=== PATIENT | male | born 1940 | race Caucasian/White ===

== ENCOUNTER 2017-08-15 13:11 | Emergency (ER) | payer MEDICARE, SELFPAY | END 2017-08-15 14:58 | disposition home or self-care (01) | PROVIDERS: Emergency Provider Nurse Practitioner; Visit Provider Nurse Practitioner | DX: J32.0 Chronic maxillary sinusitis (principal); I10 Essential (primary) hypertension; E78.5 Hyperlipidemia, unspecified; I48.0 Paroxysmal atrial fibrillation | CPT/HCPCS: G0463; 96372; 99201 ==

== ENCOUNTER → 2018-05-19 12:46 | Outpatient (CLI) | payer MEDICARE, SELFPAY ==
--- NOTE | 2018-05-19 12:53 | XR_ITS ---
XR hip LT 2-3V w/pelvis HISTORY: ITS.REASON: LT HIP PAIN ORDERING PHYSICIAN: Navin Knott MD PATIENT AGE: 77 years COMPARISON: None FINDINGS: There are moderate to severe osteoarthritic changes of the left hip with loss of joint space, osteosclerosis, and mild osteophyte formation. No fracture or dislocation. No lytic or blastic change. Incidental note also made of moderate osteoarthritis of the right hip. IMPRESSION: Moderate to severe osteoarthritis of the left hip
== END ==
PROVIDERS: PCP Family Medicine; Visit Provider Family Medicine
DX: M25.552 Pain in left hip (principal)
CPT/HCPCS: 73502

== ENCOUNTER 2018-06-14 09:56 | Inpatient (IN) ==
--- NOTE | 2018-06-14 12:03 | Pharmacy Consult Notes ---
[facility] Pharmacy VTE Monitoring - Patient Demographics Admission date: 06/14/18 Report Date: 06/14/18 Time: 12:03 Allergies/Adverse Reactions: Patient Allergies No Known Allergies Allergy (Unverified 08/04/17 14:50) - Prophylaxis VTE Prophylaxis Ordered?: Yes Types of VTE Prophylaxis: TEDS Knee High Location of Applied Device: Bilateral Lower Extremeties - VTE Diagnosis Confirmed Treatment or plan recommended: Continue Current Treatment
[2018-06-14 12:42] LABS: Anion Gap 14.6 mEq/L (5-15); Calcium 8.7 mg/dL (8.5-10.1); Potassium 3.6 mmoL/L (3.5-5.1)
[2018-06-14 13:13] LABS: Basophils % 0.2 % (0.1-2.0); Hematocrit 45.4 % (42.0-52.0); Hemoglobin 15.6 g/dL (14.1-18.0); Lymphocytes # 2.4 K/mm3 (0.7-4.5); Lymphocytes % 13.8 K/mm3 (10-50); Mean Corpuscular HGB Conc 34.3 g/dL (31.8-35.4); Mean Corpuscular Hemoglobin 32.4 pg (27.0-31.2); Mean Corpuscular Volume 94.4 fl (80-94); Mean Platelet Volume 9.1 fl (7.4-10.4); Monocytes % 5.6 % (1.7-9.3); Neutrophils # 13.7 K/mm3 (1.8-7.8); Neutrophils % 80.4 % (37.0-80.0); Platelet Count 271 K/mm3 (142-424); Red Cell Distribution Width 13.2 % (11.5-17.5)
[2018-06-14 14:29] LABS: Lymphocytes % 11 % (10-50); Monocytes % 6 % (2-9); Neutrophils % 81 % (42-76); Total Cells Counted 100
--- NOTE | 2018-06-14 16:53 | Progress Note ---
Internal Medicine - PN: Subj *Date: 06/14/18 *Time: 16:51 Interval history: Patient admitted earlier in the day with diagnosis of pneumonia. X-ray has confirmed right lower lobe pneumonia with small effusion. White blood cell count was elevated at 17,000. Patient had oxygen requirement in office with O2 sat of 82% on room air. With supplemental oxygen O2 sats are now in the 90s. Patient admits that his appetite has already improved Exam Vital signs and Labs for Last 24 Hours: Temp Pulse Resp BP Pulse Ox 97.9 F 76 20 120/60 87 L 06/14/18 12:20 06/14/18 12:20 06/14/18 12:20 06/14/18 12:20 06/14/18 12:20 Laboratory Results - last 24 hr 06/14/18 12:10: WBC 17.0 H, RBC 4.80, Hgb 15.6, Hct 45.4, MCV 94.4 H, MCH 32.4 H , MCHC 34.3, RDW 13.2, Plt Count 271, MPV 9.1, Neut % (Auto) 80.4 H, Lymph % (Auto) 13.8, [place] % (Auto) 5.6, Eos % (Auto) 0.0 L, Baso % (Auto) 0.2, Neut # (Auto) 13.7 H, Lymph # (Auto) 2.4, [place] # (Auto) 1.0, Eos # (Auto) 0.0, Baso # (Auto) 0.0, Total Counted 100, Neutrophils % (Manual) 81 H, Band Neutrophils % 2.0, Lymphocytes % (Manual) 11, Monocytes % (Manual) 6, Platelet Estimate Normal 06/14/18 12:10: Sodium 131 L, Potassium 3.6, Chloride 94 L, Carbon Dioxide 26, Anion Gap 14.6, BUN 16, Creatinine 1.40 H, Estimated Creat Clear 45, Estimated GFR 49 L, Est GFR ( Amer) 59, Glucose 109 H, Calcium 8.7 I & O for Last 24 hours: Intake & Output 06/12/18 06/13/18 06/14/18 06/15/18 11:59 11:59 11:59 11:59 Weight 163 lb 7 oz Narrative: Patient appears comfortable and in no distress. Lungs have basilar rales and rhonchi on the right. Heart has a regular rate and rhythm. Abdomen is soft and nontender Assessment and Plan (1) Right lower lobe pneumonia Current visit: Yes Status: Acute Category: Medical Code(s): J18.1 - Lobar pneumonia, unspecified organism (2) Chronic CHF (congestive heart failure) Current visit: Yes Status: Chronic Qualifiers: Heart failure type: combined systolic and diastolic Qualified Code(s): I50.42 - Chronic combined systolic (congestive) and diastolic (congestive) heart failure Category: Medical Code(s): I50.9 - Heart failure, unspecified - Assessment and plan all Dx Assessment and Plan for all problems:: 1. IV Rocephin and doxycycline to avoid drug interaction with amiodarone 2. Encourage ambulation 3. Chest PT
[2018-06-15 06:09] LABS: Basophils % 0.2 % (0.1-2.0); Eosinophils # 0.1 K/mm3 (0.0-0.4); Eosinophils % 0.5 % (0.1-12.0); Hematocrit 43.2 % (42.0-52.0); Hemoglobin 14.4 g/dL (14.1-18.0); Lymphocytes # 2.6 K/mm3 (0.7-4.5); Lymphocytes % 14.1 K/mm3 (10-50); Mean Corpuscular HGB Conc 33.2 g/dL (31.8-35.4); Mean Corpuscular Hemoglobin 31.1 pg (27.0-31.2); Mean Corpuscular Volume 93.5 fl (80-94); Mean Platelet Volume 8.4 fl (7.4-10.4); Monocytes # 1.4 K/mm3 (0.1-1.0); Monocytes % 7.5 % (1.7-9.3); Neutrophils # 14.3 K/mm3 (1.8-7.8); Neutrophils % 77.8 % (37.0-80.0); Platelet Count 290 K/mm3 (142-424); Red Blood Count 4.62 M/mm3 (4.60-6.20); Red Cell Distribution Width 13.2 % (11.5-17.5); White Blood Count 18.4 K/mm3 (4.8-10.8)
--- NOTE | 2018-06-15 07:24 | Progress Note ---
Internal Medicine - PN: Subj *Date: 06/15/18 *Time: 07:22 Interval history: Patient states he feels a little bit better. He did ambulate in his room. He had trouble getting comfortable in bed with pain when he would sit up and cough when he would lay down. Exam Vital signs and Labs for Last 24 Hours: Temp Pulse Resp BP Pulse Ox 98.5 F 85 18 110/51 L 94 L 06/15/18 03:55 06/15/18 03:55 06/15/18 03:55 06/15/18 03:55 06/15/18 03:55 Laboratory Results - last 24 hr 06/14/18 12:10: Mycoplasma pneumon IgM Non-reactive 06/14/18 12:10: WBC 17.0 H, RBC 4.80, Hgb 15.6, Hct 45.4, MCV 94.4 H, MCH 32.4 H , MCHC 34.3, RDW 13.2, Plt Count 271, MPV 9.1, Neut % (Auto) 80.4 H, Lymph % (Auto) 13.8, [place] % (Auto) 5.6, Eos % (Auto) 0.0 L, Baso % (Auto) 0.2, Neut # (Auto) 13.7 H, Lymph # (Auto) 2.4, [place] # (Auto) 1.0, Eos # (Auto) 0.0, Baso # (Auto) 0.0, Total Counted 100, Neutrophils % (Manual) 81 H, Band Neutrophils % 2.0, Lymphocytes % (Manual) 11, Monocytes % (Manual) 6, Platelet Estimate Normal 06/14/18 12:10: Sodium 131 L, Potassium 3.6, Chloride 94 L, Carbon Dioxide 26, Anion Gap 14.6, BUN 16, Creatinine 1.40 H, Estimated Creat Clear 45, Estimated GFR 49 L, Est GFR ( Amer) 59, Glucose 109 H, Calcium 8.7 06/15/18 05:40: WBC 18.4 H, RBC 4.62, Hgb 14.4, Hct 43.2, MCV 93.5, MCH 31.1, MCHC 33.2, RDW 13.2, Plt Count 290, MPV 8.4, Neut % (Auto) 77.8, Lymph % (Auto) 14.1, [place] % (Auto) 7.5, Eos % (Auto) 0.5, Baso % (Auto) 0.2, Neut # (Auto) 14.3 H, Lymph # (Auto) 2.6, [place] # (Auto) 1.4 H, Eos # (Auto) 0.1, Baso # (Auto) 0.0 I & O for Last 24 hours: Intake & Output 06/12/18 06/13/18 06/14/18 06/15/18 11:59 11:59 11:59 11:59 Weight 163 lb 7 oz Narrative: He is in no distress. Lung exam is essentially unchanged with persistent right lower lobe rales and rhonchi. Assessment and Plan (1) Right lower lobe pneumonia Current visit: Yes Status: Acute Category: Medical Code(s): J18.1 - Lobar pneumonia, unspecified organism (2) Chronic CHF (congestive heart failure) Current visit: Yes Status: Chronic Qualifiers: Heart failure type: combined systolic and diastolic Qualified Code(s): I50.42 - Chronic combined systolic (congestive) and diastolic (congestive) heart failure Category: Medical Code(s): I50.9 - Heart failure, unspecified - Assessment and plan all Dx Assessment and Plan for all problems:: I am going to add vancomycin to his regimen. Sputum culture is yet to be collected due to unproductive cough. We will attempt to induce cough for sputum.
[2018-06-15 07:39] LABS: Lymphocytes % 11 % (10-50); Monocytes % 4 % (2-9); Neutrophils % 85 % (42-76); Total Cells Counted 100
--- NOTE | 2018-06-15 08:32 | Pharmacy Consult Notes ---
- Pharmacy Consult Date: 06/15/18 Time: 08:31 Referring provider: DR. VARGAS Reason for Consult:: VANCOMYCIN DOSING Allergies and ADEs:: Allergies Allergy/AdvReac Type Severity Reaction Status Date / Time No Known Allergies Allergy Unverified 08/04/17 14:50 Home Medications:: Home Medications Medication Instructions Recorded Confirmed Type Amiodarone HCl 200 mg PO DAILY 06/14/18 06/14/18 History Apixaban [Eliquis] 5 mg PO BID 06/14/18 06/14/18 History Carvedilol [Carvedilol 12.5mg Tab] 12.5 mg PO BID 06/14/18 06/14/18 History Multivitamin [Men's Multi-Vitamin] 1 each PO HS 06/14/18 06/14/18 History Pravastatin Sodium [Pravachol 40mg 40 mg PO HS 06/14/18 06/14/18 History Tablet] Spironolactone 12.5 mg PO DAILY 06/14/18 06/14/18 History Height: 1.83 m Weight: 74.134 kg Laboratory Results:: Laboratory Results - last 24 hr 06/14/18 12:10: Mycoplasma pneumon IgM Non-reactive 06/14/18 12:10: WBC 17.0 H, RBC 4.80, Hgb 15.6, Hct 45.4, MCV 94.4 H, MCH 32.4 H , MCHC 34.3, RDW 13.2, Plt Count 271, MPV 9.1, Neut % (Auto) 80.4 H, Lymph % (Auto) 13.8, [place] % (Auto) 5.6, Eos % (Auto) 0.0 L, Baso % (Auto) 0.2, Neut # (Auto) 13.7 H, Lymph # (Auto) 2.4, [place] # (Auto) 1.0, Eos # (Auto) 0.0, Baso # (Auto) 0.0, Total Counted 100, Neutrophils % (Manual) 81 H, Band Neutrophils % 2.0, Lymphocytes % (Manual) 11, Monocytes % (Manual) 6, Platelet Estimate Normal 06/14/18 12:10: Sodium 131 L, Potassium 3.6, Chloride 94 L, Carbon Dioxide 26, Anion Gap 14.6, BUN 16, Creatinine 1.40 H, Estimated Creat Clear 45, Estimated GFR 49 L, Est GFR ( Amer) 59, Glucose 109 H, Calcium 8.7 06/15/18 05:40: WBC 18.4 H, RBC 4.62, Hgb 14.4, Hct 43.2, MCV 93.5, MCH 31.1, MCHC 33.2, RDW 13.2, Plt Count 290, MPV 8.4, Neut % (Auto) 77.8, Lymph % (Auto) 14.1, [place] % (Auto) 7.5, Eos % (Auto) 0.5, Baso % (Auto) 0.2, Neut # (Auto) 14.3 H, Lymph # (Auto) 2.6, [place] # (Auto) 1.4 H, Eos # (Auto) 0.1, Baso # (Auto) 0.0, Total Counted 100, Neutrophils % (Manual) 85 H, Lymphocytes % (Manual) 11, Monocytes % (Manual) 4, Platelet Estimate Normal Medical History: Reports:: Atrial Fibrillation, Hyperlipidemia, Hypertension Denies:: Diabetes Mellitus Type 1, Diabetes Mellitus Type 2 Assessment and Plan (1) Right lower lobe pneumonia Current visit: Yes Status: Acute Category: Medical Code(s): J18.1 - Lobar pneumonia, unspecified organism (2) Chronic CHF (congestive heart failure) Current visit: Yes Status: Chronic Qualifiers: Heart failure type: combined systolic and diastolic Qualified Code(s): I50.42 - Chronic combined systolic (congestive) and diastolic (congestive) heart failure Category: Medical Code(s): I50.9 - Heart failure, unspecified - Assessment and plan all Dx Assessment and Plan for all problems:: BASED ON PATIENT'S FACTORS, RECOMMEND STARTING WITH VANCOMYCIN 1500 MG Q24H AT THIS TIME. PHARMACY WILL FOLLOW DAILY AND ADJUST APPROPRIATE. ANTONELLA LINDSEY, PHARMD
[2018-06-16 07:00] LABS: Basophils # 0.1 K/mm3 (0-0.2); Basophils % 0.4 % (0.1-2.0); Eosinophils # 0.1 K/mm3 (0.0-0.4); Eosinophils % 0.7 % (0.1-12.0); Hematocrit 40.9 % (42.0-52.0); Hemoglobin 13.7 g/dL (14.1-18.0); Lymphocytes # 2.6 K/mm3 (0.7-4.5); Lymphocytes % 18.8 K/mm3 (10-50); Mean Corpuscular HGB Conc 33.6 g/dL (31.8-35.4); Mean Corpuscular Hemoglobin 31.5 pg (27.0-31.2); Mean Corpuscular Volume 93.8 fl (80-94); Mean Platelet Volume 8.1 fl (7.4-10.4); Monocytes # 1.2 K/mm3 (0.1-1.0); Monocytes % 8.3 % (1.7-9.3); Neutrophils % 71.8 % (37.0-80.0); Platelet Count 339 K/mm3 (142-424); Red Blood Count 4.36 M/mm3 (4.60-6.20); Red Cell Distribution Width 13.4 % (11.5-17.5)
--- NOTE | 2018-06-16 07:26 | Progress Note ---
Internal Medicine - PN: Subj *Date: 06/16/18 *Time: 07:25 Interval history: Patient is without complaints this morning. He was able to ambulate in his room yesterday without dyspnea. O2 sats remained 87% on room air. Exam Vital signs and Labs for Last 24 Hours: Temp Pulse Resp BP Pulse Ox 97.7 F 83 14 114/63 87 L 06/16/18 04:00 06/16/18 04:00 06/16/18 04:00 06/16/18 04:00 06/16/18 04:58 Laboratory Results - last 24 hr 06/15/18 05:40: Total Counted 100, Neutrophils % (Manual) 85 H, Lymphocytes % (Manual) 11, Monocytes % (Manual) 4, Platelet Estimate Normal 06/16/18 06:30: WBC 14.0 H, RBC 4.36 L, Hgb 13.7 L, Hct 40.9 L, MCV 93.8, MCH 31.5 H, MCHC 33.6, RDW 13.4, Plt Count 339, MPV 8.1, Neut % (Auto) 71.8, Lymph % (Auto) 18.8, [place] % (Auto) 8.3, Eos % (Auto) 0.7, Baso % (Auto) 0.4, Neut # (Auto) 10.0 H, Lymph # (Auto) 2.6, [place] # (Auto) 1.2 H, Eos # (Auto) 0.1, Baso # (Auto) 0.1 I & O for Last 24 hours: Intake & Output 06/13/18 06/14/18 06/15/18 06/16/18 11:59 11:59 11:59 11:59 Intake Total 360 / 360 1030 / 1030 Balance 360 / 360 1030 / 1030 Weight 163 lb 7 oz 163 lb 7 oz Microbiology Reports for the Last 24 Hours: Microbiology 06/14/18 12:10 Blood Blood Culture - Preliminary 06/15/18 08:35 Sputum - Expectorated Sputum Gram Stain - Final Narrative: Patient looks comfortable. Lung exam reveals decrease in rales in the right lung base and right mid lung. Heart has a regular rate and rhythm. Abdomen is soft and nontender Assessment and Plan (1) Right lower lobe pneumonia Current visit: Yes Status: Acute Category: Medical Code(s): J18.1 - Lobar pneumonia, unspecified organism (2) Chronic CHF (congestive heart failure) Current visit: Yes Status: Chronic Qualifiers: Heart failure type: combined systolic and diastolic Qualified Code(s): I50.42 - Chronic combined systolic (congestive) and diastolic (congestive) heart failure Category: Medical Code(s): I50.9 - Heart failure, unspecified - Assessment and plan all Dx Assessment and Plan for all problems:: Continue current plan of care. Patient will continue to ambulate and use incentive spirometer frequently. Focus over the next 24 hours will be attempting to wean oxygen
[2018-06-17 06:51] LABS: Basophils # 0.1 K/mm3 (0-0.2); Basophils % 0.6 % (0.1-2.0); Eosinophils # 0.2 K/mm3 (0.0-0.4); Eosinophils % 1.6 % (0.1-12.0); Hematocrit 39.1 % (42.0-52.0); Hemoglobin 13.6 g/dL (14.1-18.0); Lymphocytes % 26.4 K/mm3 (10-50); Mean Corpuscular HGB Conc 34.7 g/dL (31.8-35.4); Mean Corpuscular Hemoglobin 32.2 pg (27.0-31.2); Mean Corpuscular Volume 92.8 fl (80-94); Monocytes # 1.2 K/mm3 (0.1-1.0); Neutrophils # 6.8 K/mm3 (1.8-7.8); Neutrophils % 60.4 % (37.0-80.0); Platelet Count 408 K/mm3 (142-424); Red Blood Count 4.22 M/mm3 (4.60-6.20); Red Cell Distribution Width 13.5 % (11.5-17.5); White Blood Count 11.3 K/mm3 (4.8-10.8)
--- NOTE | 2018-06-17 07:22 | Discharge Summary ---
General - General Admission date:: 06/14/18 Discharge date: 06/17/18 HPI HPI: 77-year-old male seen in the office on the day of admission for follow-up of acute bronchitis. Patient's symptoms had worsened over a 48-hour period with increasing cough with some yellow sputum production and worsening dyspnea. O2 sats in the office were 82% on room air. Lungs had right-sided rales from the mid lung to the base. Patient was admitted for IV antibiotics and evaluation of pneumonia. Hospital Course Hospital Course: Patient was admitted and placed on Rocephin and doxycycline. This regimen was chosen to avoid interactions with his amiodarone. After 24 hours of treatment patient's white blood cell had increased. Patient had not noticed any change in how he felt. Vancomycin was added to cover possibility of MRSA. Over the following 3 days patient improved a little each day. Lung exam improved daily with decrease in rales. On the day of discharge there was still some posterior basilar right sided rales. He remained afebrile throughout hospitalization. Patient had an oxygen requirement but was able to be weaned to room air with O2 sats reaching 91-92% on room air by the day of discharge. On June 17 patient was discharged home. Patient will follow-up in the office on June 21 at 11 AM. Objective Vital signs: Temp Pulse Resp BP Pulse Ox 98.0 F 81 14 102/41 L 91 L 06/17/18 03:59 06/17/18 03:59 06/17/18 03:59 06/17/18 03:59 06/17/18 03:59 Results Labs on day of discharge: Labs from last 24 hours 06/17/18 06:20 WBC 11.3 H RBC 4.22 L Hgb 13.6 L Hct 39.1 L MCV 92.8 MCH 32.2 H MCHC 34.7 RDW 13.5 Plt Count 408 MPV 8.0 Neut % (Auto) 60.4 Lymph % (Auto) 26.4 [place] % (Auto) 11.0 H Eos % (Auto) 1.6 Baso % (Auto) 0.6 Neut # (Auto) 6.8 Lymph # (Auto) 3.0 [place] # (Auto) 1.2 H Eos # (Auto) 0.2 Baso # (Auto) 0.1 Preliminary micro results at discharge 06/14/18 12:10 Blood Culture - Preliminary Blood NO GROWTH AFTER 48 HOURS 06/14/18 12:10 Blood Culture - Preliminary Blood 06/15/18 08:35 Sputum Culture - Preliminary Sputum - Expectorated Sputum DS: Diagnosis - Discharge Diagnosis (1) Right lower lobe pneumonia Status: Acute (2) Chronic CHF (congestive heart failure) Status: Chronic Discharge Plan - Patient Discharge Instructions ACTIVITY: Continue current activity DIET: continue same diet Patient Instructions: Low-Sodium Diet - Follow up Plan Follow up with: Dwayne Eli MD [Primary Care Provider] - Disposition: Home, Self-Long-Term Medications: Home Medications Medication Instructions Recorded Confirmed Type Amiodarone HCl 200 mg PO DAILY 06/14/18 06/14/18 History Apixaban [Eliquis] 5 mg PO BID 06/14/18 06/14/18 History Carvedilol [Carvedilol 12.5mg Tab] 12.5 mg PO BID 06/14/18 06/14/18 History Multivitamin [Men's Multi-Vitamin] 1 each PO HS 06/14/18 06/14/18 History Pravastatin Sodium [Pravachol 40mg 40 mg PO HS 06/14/18 06/14/18 History Tablet] Spironolactone 12.5 mg PO DAILY 06/14/18 06/14/18 History Prescriptions/Medication Reconciliation: New Doxycycline Hyclate [Doxycycline 100mg Capsule] 100 mg PO Q12 #14 cap Continue Amiodarone HCl 200 mg PO DAILY Pravastatin Sodium [Pravachol 40mg Tablet] 40 mg PO HS Carvedilol [Carvedilol 12.5mg Tab] 12.5 mg PO BID Spironolactone 12.5 mg PO DAILY Multivitamin [Men's Multi-Vitamin] 1 each PO HS Apixaban [Eliquis] 5 mg PO BID
--- NOTE | 2018-06-17 07:59 | Progress Note ---
Internal Medicine - PN: Subj *Date: 06/17/18 *Time: 07:58 Exam Vital signs and Labs for Last 24 Hours: Temp Pulse Resp BP Pulse Ox 97.8 F 75 17 110/79 94 L 06/17/18 07:41 06/17/18 07:41 06/17/18 07:41 06/17/18 07:41 06/17/18 07:41 Laboratory Results - last 24 hr 06/17/18 06:20: WBC 11.3 H, RBC 4.22 L, Hgb 13.6 L, Hct 39.1 L, MCV 92.8, MCH 32.2 H, MCHC 34.7, RDW 13.5, Plt Count 408, MPV 8.0, Neut % (Auto) 60.4, Lymph % (Auto) 26.4, [place] % (Auto) 11.0 H, Eos % (Auto) 1.6, Baso % (Auto) 0.6, Neut # (Auto) 6.8, Lymph # (Auto) 3.0, [place] # (Auto) 1.2 H, Eos # (Auto) 0.2, Baso # (Auto) 0.1 I & O for Last 24 hours: Intake & Output 06/14/18 06/15/18 06/16/18 06/17/18 23:59 23:59 23:59 23:59 Intake Total 1390 / 1390 1150 / 1150 990 / 990 Balance 1390 / 1390 1150 / 1150 990 / 990 Weight 74.134 kg 74.134 kg 74.134 kg 75.977 kg Microbiology Reports for the Last 24 Hours: Microbiology 06/14/18 12:10 Blood Blood Culture - Preliminary NO GROWTH AFTER 48 HOURS 06/14/18 12:10 Blood Blood Culture - Preliminary 06/15/18 08:35 Sputum - Expectorated Sputum Gram Stain - Final 06/15/18 08:35 Sputum - Expectorated Sputum Sputum Culture - Preliminary Assessment and Plan (1) Right lower lobe pneumonia Current visit: Yes Status: Acute Category: Medical Code(s): J18.1 - Lobar pneumonia, unspecified organism (2) Chronic CHF (congestive heart failure) Current visit: Yes Status: Chronic Qualifiers: Heart failure type: combined systolic and diastolic Qualified Code(s): I50.42 - Chronic combined systolic (congestive) and diastolic (congestive) heart failure Category: Medical Code(s): I50.9 - Heart failure, unspecified The patient's infection will respond to the chosen ABx?: Yes Is the patient receiving the right drug, dose, and route?: Yes Could a more targeted ABx be ordered?: No (HOME ON DOXYCYCLINE)
== END 2018-06-17 08:22 | disposition home or self-care (01) ==
LOC: 2ND → OBSVTOIN 11:34
PROVIDERS: ADMIT Family Medicine; ATTEND Family Medicine
CPT/HCPCS: 36415; 71020; 71046; 80048; 85007; 85025; 86738; 87040; 87070; 87077; 87186; 87205; 94761; J3370

== ENCOUNTER → 2019-09-04 12:50 | Outpatient (CLI) | payer MEDICARE, SELFPAY ==
[2019-09-04 13:15] LABS: INR 2.16 (0.9-1.1); Prothrombin Time 21.7 seconds (9.4-11.8)
== END ==
PROVIDERS: Visit Provider Orthopaedic Surgery
DX: M16.12 Unilateral primary osteoarthritis, left hip (principal); Z96.642 Presence of left artificial hip joint; Z51.81 Encounter for therapeutic drug level monitoring; Z79.01 Long term (current) use of anticoagulants
CPT/HCPCS: 85610

== ENCOUNTER 2019-10-02 15:17 | Inpatient (IN) ==
[2019-10-02 15:31] LABS: ABG Base Excess -5.7 mmol/L (-2.4-2.3); ABG Oxygen Saturation 71 % (90-100); ABG PCO2 37.2 mmhg (35.0-45.0); ABG PH 7.35 mmol/L (7.35-7.45); ABG TCO2 21.1 mmhg (23-27)
[2019-10-02 15:32] LABS: Allen's Test ACCEPTABLE; Oxygen 21 %
[2019-10-02 15:33] LABS: ABG PO2 41.4 mmhg (80-100)
--- NOTE | 2019-10-02 15:44 | Emergency Department Note ---
ED Disposition Clinical Impression: Pulmonary edema Qualifiers: Chronicity: acute Qualified Code(s): J81.0 - Acute pulmonary edema Respiratory failure with hypoxia Qualifiers: Chronicity: acute Qualified Code(s): J96.01 - Acute respiratory failure with hypoxia Disposition: Admitted As Inpatient Condition on Discharge: Serious - Critical Care Critical Care Time: Yes Attestation: On 10/02/19, the high probability of a clinically significant, sudden or life threatening deterioration of the following system(s) required my full and direct attention, intervention and personal management. The time I documented below is in addition to time spent performing reported procedures but includes the following listed in this critical care notation. Total Critical Care Time: 45 Vital system(s) involved:: Circulatory Failure, Respiratory Failure My critical care processes included: Assessment & monitoring of V/S, Initial and Re-exams, Data Review/Interpretation, Coordinating Care, Medication Orders and management, Documentation Medical Decision Making - Dandy Inquiry Pt receiving controlled substance: No Vital Signs: 10/02/19 15:18 10/02/19 15:28 10/02/19 16:02 Temperature 98.6 F 98.2 F Temperature Source Oral Oral Pulse Rate 86 Pulse Rate [Right Radial] 84 81 Respiratory Rate 26 H 22 Blood Pressure [Right Arm] 156/58 H 106/66 L Blood Pressure Mean [Right Arm] 90 79 Blood Pressure Source [Right Arm] Automatic Cuff Blood Pressure Position [Right Arm] Supine 02 Sat by Pulse Oximetry 74 L 79 L 91 L Oxygen Delivery Method Room Air Room Air BiPAP Oxygen Flow Rate (LPM) 2 - Lab Data Lab Results 10/02/19 15:23: Specimen Source Right radial, O2 % 21, ABG pH 7.35, ABG pCO2 37.2, ABG pO2 41.4 L, ABG HCO3 20.0 L, ABG Total CO2 21.1 L, ABG O2 Saturation 7 1 L*, ABG Base Excess -5.7 L, Nasir Test Acceptable 10/02/19 16:20: WBC 7.1, RBC 4.63, Hgb 14.7, Hct 47.5, MCV 102.5 H, MCH 31.6 H, MCHC 30.9 L, RDW 13.5, Plt Count 250, MPV 9.9, Neut % (Auto) 60.4, Lymph % (Auto) 30.2, [place] % (Auto) 6.7, Eos % (Auto) 1.7, Baso % (Auto) 0.9, Neut # (Auto) 4.3, Lymph # (Auto) 2.2, [place] # (Auto) 0.5, Eos # (Auto) 0.1, Baso # (Aut o) 0.1 10/02/19 16:20: Sodium 137, Potassium 4.2, Chloride 101, Carbon Dioxide 22, Anion Gap 18.2 H, BUN 22 H, Creatinine 1.68 H, Estimated Creat Clear 37, Estimated GFR 39 L, Est GFR ( Amer) 48 L, Glucose 185 H, Calcium 8.8, Total Bilirubin 0.5, AST 44 H, ALT 34, Alkaline Phosphatase 144 H, Troponin I < 0.02, Total Protein 7.9, Albumin 3.3 L, Globulin 4.6 H, Albumin/Globulin Ratio 0.7 L 10/02/19 16:20: Lactate 3.7 H 10/02/19 16:20: B-Natriuretic Peptide 734 H 10/02/19 16:20: PT 33.5 H, INR 3.42 H Result diagrams: 10/02/19 16:20 10/02/19 16:20 Orders (Tests/Meds): ED MEDICATIONS Generic Name Dose Route Start Last Admin Trade Name Freq PRN Reason Stop Dose Admin Nitroglycerin/Dextrose 250 mls @ 1.5 mls/hr 10/02/19 15:45 10/02/19 16:19 Nitroglycerin 50mg/250ml D5w IV 11/01/19 15:44 5 mcg/min .Q24H DAVID 1.5 mls/hr Administration Protocol 5 MCG/MIN Discontinued Medications Generic Name Dose Route Start Last Admin Trade Name Freq PRN Reason Stop Dose Admin Albuterol/Ipratropium 3 ml 10/02/19 15:23 10/02/19 15:28 Duoneb 3ml Neb IH 10/02/19 15:24 3 ml ONCE ONE Administration Furosemide 40 mg 10/02/19 15:39 10/02/19 16:03 Lasix 40mg/4ml Vial IV 10/02/19 15:40 40 mg ONCE ONE Administration ORDERS Category Date Time Status XR chest portable Stat Exams 10/02/19 15:22 Taken Troponin I Q3H Lab 10/02/19 18:00 Received Troponin I Q3H Lab 10/02/19 21:30 Ordered Blood Culture Stat Micro 10/02/19 16:20 Received - ECG Data Tracing #1 EKG interpreted by Marv Gregory MD: Rhythm: sinus Rate: 85 [place]: normal Ectopy: none Conduction: Left bundle branch block No prior EKGs available for comparison. - Physician Consults Physician Consulted: Pau Bonilla Time: 17:56 Reason -: Cardiology Eval/Care Comment/Response: He knows the patient, states that the patient has been in twice recently for atrial fibrillation and congestive heart failure and he has presented like this before. He does not feel that the patient has to be transferred there but would recommend that he follow-up with Dr. Gonzalez within days of discharge. Discussed with patient and . Again, patient would prefer to stay here. Additional Consult: Lizbeth Eli Time: 18:10 Reason -: Admission Comment/Response: Agrees to admit the patient to the hospital. We discussed the patient's clinical information, including history, exam, laboratory and radiology results and ED course. Per hospital procedure, I will write temporary bridge inpatient orders on the patient. Specific orders requested by the admitting physician: Continue current treatment. He will evaluate later this evening to see if he needs another dose of Lasix. Continue BiPAP for now. Continue nitroglycerin. - Reevaluation(s) Time: 17:44 Reevaluation #1: Patient is doing much better. Says that his breathing feels much better and he appears calm and relaxed on BiPAP. Patient's would like Dr. Gonzalez called, but the patient says he wants to stay here to be cared for by his primary care provider. General Adult HPI - General Chief complaint: Shortness of Breath/Dyspnea Stated complaint: shortness of breath Time Seen by Provider: 10/02/19 15:30 Mode of Arrival: Wheelchair Limitations: No Limitations Description of Symptoms (Recalled from ER Triage Doc. by RN): pt presents to ed with c/o shortness of breath. pt states is began 2 hours ago and he denies fever. reports that patient has a hx of chf. left hip replacement on 08/23/19 - History of Present Illness HPI narrative: Sudden onset of shortness of breath 2 hours ago. States he feels like his lungs are full of fluid. He has a history of congestive heart failure. He took his usual dose of Lasix this morning. Denies chest pain. States that he is "in pain" and just because he cannot breathe. Recently had left hip surgery August 23. Left leg is been swollen ever since surgery. He is on warfarin. Denies cough or fever or URI symptoms. No pleuritic chest pain. No hemoptysis. states that he was just released from the hospital at [facility] Thursday night. She says that they thought they were going to have to shock his heart but when they took him down to do it "it was okay". Apparently he was in atrial fibrillation. She would like Dr. Gonzalez called when work-up is complete. - Related Data Home Medications Medication Instructions Recorded Confirmed Amiodarone HCl 200 mg PO DAILY 06/14/18 09/08/19 Pravastatin Sodium [Pravachol 40mg 40 mg PO HS 06/14/18 09/08/19 Tablet] carvediloL [Carvedilol 12.5mg Tab] 12.5 mg PO BID 06/14/18 09/08/19 levothyroxine 50 mcg tablet 50 mcg PO DAILY tab 09/01/19 09/08/19 tamsulosin 0.4 mg capsule 0.4 mg PO DAILY 09/01/19 09/08/19 Warfarin Sodium [Coumadin 1mg 1 mg PO DAILY 09/07/19 09/08/19 tablet] Previous Rx's Medication Instructions Recorded Nitrofurantoin Monohyd/M-Cryst 100 mg PO BID #14 cap 09/07/19 [Macrobid 100 mg Capsule] Allergies Allergy/AdvReac Type Severity Reaction Status Date / Time No Known Allergies Allergy Verified 10/02/19 15:[address] [facility] History - Hepatitis A Screen Drug use history?: No High risk sexual behaviors?: No History of sexually transmitted infection?: No Currently employed?: No Childcare worker?: No Do you have indoor plumbing?: Yes Do you have electricity?: Yes Attestation statement:: This patient has been screened for Hepatitis A risk factors. I have reviewed the patient's past medical history: Yes Medical History: Reports:: Atrial Fibrillation, Hyperlipidemia, Hypertension Denies:: Diabetes Mellitus Type 1, Diabetes Mellitus Type 2 Other Medical History: Reports: Arthritis Laterality Cases: Left: Total Hip Replacement, Bilateral: Tonsillectomy Other Surgeries: Yes: Splenectomy Amputation: No - Social History Smoking Status: Never smoker Alcohol Intake: never Substance Use Type: denies use Occupational Status: retired Household Members: spouse Family Hx:: Coronary Artery Disease, Heart Attack ROS Obtained: Yes All systems reviewed & no additional complaints - Constitutional Constitutional: Denies fever(s) - Cardiovascular Cardiovascular: Denies chest pain, Reports leg edema (Left leg since surgery) - Respiratory Respiratory: No cough, Yes dyspnea - Gastrointestinal Gastrointestingal: Denies: abdominal pain, vomiting Physical Exam - General General appearance: alert, anxious, in distress (Respiratory) - Head Head exam: atraumatic, normocephalic - Eye Eye exam: Present: normal appearance, EOMI - ENT ENT exam: Present: mucous membranes moist - Neck Neck exam: Present: normal inspection, trachea midline - Chest Chest inspection: Present: normal inspection, symmetric chest wall rise - Respiratory Respiratory exam: Present: other (Rales throughout) - Cardiovascular Cardiovascular exam: Present: regular rate, normal rhythm, normal heart sounds - Abdominal Exam Abdominal exam: Present: soft, normal bowel sounds. Absent: distention, tenderness - Extremities Exam Extremities exam: Present: normal capillary refill, other (1-2+ pitting edema left lower leg/ankle) - Neurological Exam Neurological exam: Present: alert, oriented X3 - Psychiatric Psychiatric exam: Present: anxious - Skin Skin exam: Present: warm, dry
[2019-10-02 16:37] LABS: Basophils # 0.1 K/mm3 (0-0.2); Basophils % 0.9 % (0.1-2.0); Eosinophils # 0.1 K/mm3 (0.0-0.4); Eosinophils % 1.7 % (0.1-12.0); Hematocrit 47.5 % (42.0-52.0); Hemoglobin 14.7 g/dL (14.1-18.0); Lymphocytes # 2.2 K/mm3 (0.7-4.5); Lymphocytes % 30.2 % (10-50); Mean Corpuscular HGB Conc 30.9 g/dL (31.8-35.4); Mean Corpuscular Volume 102.5 fl (80-94); Mean Platelet Volume 9.9 fl (7.4-10.4); Monocytes # 0.5 K/mm3 (0.1-1.0); Monocytes % 6.7 % (1.7-9.3); Neutrophils # 4.3 K/mm3 (1.8-7.8); Neutrophils % 60.4 % (37.0-80.0); Platelet Count 250 K/mm3 (142-424); Red Blood Count 4.63 M/mm3 (4.60-6.20); Red Cell Distribution Width 13.5 % (11.5-17.5); White Blood Count 7.1 K/mm3 (4.8-10.8)
[2019-10-02 17:18] LABS: Alanine Aminotransferase 34 U/L (21-72); Albumin Level 3.3 g/dL (3.4-5.0); Albumin/Globulin Ratio 0.7 (1.1-1.8); Alkaline Phosphatase 144 U/L (46-116); Anion Gap 18.2 mEq/L (5-15); Aspartate Amino Transferase 44 U/L (15-37); Bilirubin,Total 0.5 mg/dL (0.2-1.0); Blood Urea Nitrogen 22 mg/dL (7-18); Carbon Dioxide 22 mmol/L (21.0-32.0); Chloride 101 mmol/L (98-107); Globulin 4.6 gm/dl (1.3-3.2); Glucose 185 mg/dL (74-106); Sodium 137 mmol/L (137-145); Total Protein,Serum 7.9 g/dL (6.4-8.2)
[2019-10-02 17:48] LABS: Calcium 8.8 mg/dL (8.5-10.1)
[2019-10-02 17:52] LABS: INR 3.42 (0.9-1.1); Prothrombin Time 33.5 seconds (9.4-11.8)
[2019-10-03 06:19] LABS: Anion Gap 11.8 mEq/L (5-15); Calcium 8.5 mg/dL (8.5-10.1)
--- NOTE | 2019-10-03 07:34 | Pharmacy Consult Notes ---
[facility] Pharmacy VTE Monitoring - Patient Demographics Admission date: 10/02/19 Report Date: 10/03/19 Time: 07:34 Allergies/Adverse Reactions: Patient Allergies No Known Allergies Allergy (Verified 10/02/19 15:22) Height: 1.83 m Weight: 72.235 kg Patient Problems: Current Active Problems Pulmonary edema (Acute) Respiratory failure with hypoxia (Acute) - VTE Risk Labs: VTE Related Lab Results Hgb 14.7 g/dL (14.1-18.0) 10/02/19 16:20 Hct 47.5 % (42.0-52.0) 10/02/19 16:20 Plt Count 250 K/mm3 (142-424) 10/02/19 16:20 PT 33.5 seconds (9.4-11.8) H 10/02/19 16:20 INR 3.42 (0.9-1.1) H 10/02/19 16:20 BUN 19 mg/dL (7-18) H 10/03/19 05:25 Creatinine 1.61 mg/dL (0.70-1.30) H 10/03/19 05:25 Estimated Creat Clear 37 mL/min (50-200) 10/03/19 05:25 VTE Score: 5 VTE Risk Level: Low Risk - Prophylaxis VTE Prophylaxis Ordered?: Yes Types of VTE Prophylaxis: TEDS Knee High Location of Applied Device: Bilateral Lower Extremeties
--- NOTE | 2019-10-03 07:53 | History & Physical Report ---
*Admission Date: 10/02/19 *Chief complaint: Chest tightness *History of present illness: 79-year-old male with history of atrial fibrillation and a recent 6-day hospitalization at [facility] for A. fib and shortness of breath presented to the emergency department after onset of chest tightness yesterday afternoon. Patient reports he was out eating lunch when he felt like a truck had run over his chest. Patient decided to go home and rest. When he began to feel short of breath and his anxiety increased he presented to the emergency department. In the emergency department patient had a negative troponin. EKG shows a left bundle branch block. Patient's clasp machine operator was contacted about possible transfer when patient was found to be in acute congestive heart failure. Patient's clasp machine operator felt like we could manage this problem here and the patient was admitted with IV Lasix and placed on BiPAP. Patient reports recent 6-day stay at [facility] when he went to the ER there because he believed he was in A. fib. Apparently initially he was not in A. fib but later on runs of atrial fibrillation were detected. He does not recall much about the rest of the stay at the hospital. His does not believe he ever had an echocardiogram although this was discussed but she admits she could be wrong. He was in the hospital from September 25 to September 30. [facility] History I have reviewed the patient's past medical history: Yes Medical History: Reports:: Atrial Fibrillation, Congestive Heart Failure, Hyperlipidemia, Hypertension Denies:: Diabetes Mellitus Type 1, Diabetes Mellitus Type 2 *Have you ever received a pneumonia vaccine?: Yes *Have you received a flu vaccine this season?: Yes Other Medical History: Reports: Arthritis Laterality Cases: Left: Total Hip Replacement, Bilateral: Tonsillectomy Other Surgeries: Yes: Splenectomy Amputation: No - *Social History Educational Level: Completed High School Smoking Status: Never smoker Alcohol Intake: never Substance Use Type: denies use *Occupational Status:: retired Household Members: spouse *Travel in the last 8 weeks: None Family Hx:: Coronary Artery Disease, Heart Attack Review of Systems - Review of Systems Review of systems:: pertinent systems reviewed and negative unless documented below - Constitutional Denies body ache(s), Denies chills, Denies fever(s), Denies night sweats - *Cardiovascular Reports chest pain, Reports chest pain at rest, Reports shortness of breath - *Respiratory Reports cough, Reports shortness of breath, Denies change in phlegm color, Denies chest congestion - *Gastrointestinal Denies abdominal pain - *Genitourinary Denies difficulty urinating Meds Home Medications Medication Instructions Recorded Confirmed Type Amiodarone HCl 200 mg PO BID 06/14/18 10/02/19 History Pravastatin Sodium [Pravachol 40mg 40 mg PO HS 06/14/18 10/02/19 History Tablet] carvediloL [Carvedilol 12.5mg Tab] 12.5 mg PO BID 06/14/18 10/02/19 History levothyroxine 50 mcg tablet 50 mcg PO DAILY tab 09/01/19 10/02/19 History tamsulosin 0.4 mg capsule 0.4 mg PO HS 09/01/19 10/02/19 History Warfarin Sodium [Coumadin 1mg 1 mg PO HS 09/07/19 10/02/19 History tablet] Furosemide [Lasix 20mg tab] 20 mg PO DAILY 10/02/19 10/02/19 History Gabapentin [Gabapentin 100mg Cap] 100 mg PO ONCE 10/02/19 10/02/19 History Iron [Iron 18mg Tab] 65 mg PO HS 10/02/19 10/02/19 History Allergies Allergy/AdvReac Type Severity Reaction Status Date / Time No Known Allergies Allergy Verified 10/02/19 15:22 Exam Vital signs and Labs for Last 24 Hours: Temp Pulse Resp BP Pulse Ox 98.0 F 64 20 92/56 L 98 10/03/19 04:00 10/03/19 07:06 10/03/19 07:06 10/03/19 07:06 10/03/19 07:06 Laboratory Results - last 24 hr 10/02/19 15:23: Specimen Source Right radial, O2 % 21, ABG pH 7.35, ABG pCO2 37.2, ABG pO2 41.4 L, ABG HCO3 20.0 L, ABG Total CO2 21.1 L, ABG O2 Saturation 71 L*, ABG Base Excess -5.7 L, Nasir Test Acceptable 10/02/19 16:20: WBC 7.1, RBC 4.63, Hgb 14.7, Hct 47.5, MCV 102.5 H, MCH 31.6 H, MCHC 30.9 L, RDW 13.5, Plt Count 250, MPV 9.9, Neut % (Auto) 60.4, Lymph % (Auto) 30.2, [place] % (Auto) 6.7, Eos % (Auto) 1.7, Baso % (Auto) 0.9, Neut # (Auto) 4.3, Lymph # (Auto) 2.2, [place] # (Auto) 0.5, Eos # (Auto) 0.1, Baso # (Auto) 0.1 10/02/19 16:20: Sodium 137, Potassium 4.2, Chloride 101, Carbon Dioxide 22, Anion Gap 18.2 H, BUN 22 H, Creatinine 1.68 H, Estimated Creat Clear 37, Estimated GFR 39 L, Est GFR ( Amer) 48 L, Glucose 185 H, Calcium 8.8, Total Bilirubin 0.5, AST 44 H, ALT 34, Alkaline Phosphatase 144 H, Troponin I < 0.02, Total Protein 7.9, Albumin 3.3 L, Globulin 4.6 H, Albumin/Globulin Ratio 0.7 L 10/02/19 16:20: Lactate 3.7 H 10/02/19 16:20: B-Natriuretic Peptide 734 H 10/02/19 16:20: PT 33.5 H, INR 3.42 H 10/02/19 18:00: Troponin I 0.14 H 10/02/19 21:36: Troponin I 0.30 H 10/02/19 21:36: Lactate 1.4 10/03/19 05:25: Sodium 140, Potassium 3.8, Chloride 103, Carbon Dioxide 29 D, Anion Gap 11.8, BUN 19 H, Creatinine 1.61 H, Estimated Creat Clear 37, Estimated GFR 41 L, Est GFR ( Amer) 50 L, Glucose 102 D, Calcium 8.5 I & O for Last 24 hours: Intake & Output 09/30/19 10/01/19 10/02/19 10/03/19 11:59 11:59 11:59 11:59 Intake Total 1899 Output Total 0 / 0 Balance 1899 Weight 159 lb 4 oz Narrative: Patient initially appears comfortable when I entered the room as he is wearing BiPAP. BiPAP was removed and he was transitioned to nasal cannula and remained comfortable with no signs of respiratory distress. Scalp exam is without lesions. Eyes reveal reactive pupils. Normal external ears. Oropharynx is dry from use of BiPAP. Neck has no lymphadenopathy or carotid bruits. Lungs have rales in the left and right lung base with left being more prominent. Heart has a regular rate and rhythm. Abdomen is thin and soft. Extremities reveals some doughy edema of the left lower leg and ankle which has been present since patient's left hip replacement in early August. Neurologically there are no deficits Assessment and Plan (1) Acute congestive heart failure Current visit: Yes Status: Acute Category: Medical Code(s): I50.9 - Heart failure, unspecified (2) Respiratory failure with hypoxia Current visit: Yes Status: Acute Qualifiers: Chronicity: acute Qualified Code(s): J96.01 - Acute respiratory failure with hypoxia Category: Medical Code(s): J96.91 - Respiratory failure, unspecified with h ypoxia - Assessment and plan all Dx Assessment and Plan for all problems:: 1. Transition to nasal cannula 2. Continue diuresis with intravenous Lasix 3. Echocardiogram today
[2019-10-03 08:49] LABS: Anion Gap 12.5 mEq/L (5-15); Calcium 8.2 mg/dL (8.5-10.1)
[2019-10-03 08:50] LABS: Basophils # 0.1 K/mm3 (0-0.2); Basophils % 0.5 % (0.1-2.0); Eosinophils # 0.1 K/mm3 (0.0-0.4); Eosinophils % 0.4 % (0.1-12.0); Lymphocytes # 2.6 K/mm3 (0.7-4.5); Monocytes # 0.8 K/mm3 (0.1-1.0); Red Blood Count 3.97 M/mm3 (4.60-6.20)
[2019-10-03 08:59] LABS: Hematocrit 39.1 % (42.0-52.0); Lymphocytes % 22.3 % (10-50); Mean Corpuscular HGB Conc 32.5 g/dL (31.8-35.4); Mean Corpuscular Volume 98.5 fl (80-94); Mean Platelet Volume 9.1 fl (7.4-10.4); Monocytes % 7.2 % (1.7-9.3); Neutrophils % 69.5 % (37.0-80.0); Platelet Count 240 K/mm3 (142-424); Red Cell Distribution Width 13.5 % (11.5-17.5); White Blood Count 11.5 K/mm3 (4.8-10.8)
[2019-10-03 09:07] LABS: Hemoglobin 12.7 g/dL (14.1-18.0)
[2019-10-03 15:15] LABS: INR 3.33 (0.9-1.1); Prothrombin Time 32.7 seconds (9.4-11.8)
--- NOTE | 2019-10-03 18:05 | Electrocardiograph Report ---
APPROVED REPORT Exam: Resting ECG HR:85 bpm ECG Measurements Heart Rate 85 AXES DE 178 P 47 QRSd 180 QRS -39 QT 508 T99 QTc 604 <Conclusion> Normal sinus rhythm Possible Left atrial enlargement Left axis deviation Left bundle branch block Abnormal ECG Electronically signed by : Diego Treviño, 10/03/2019 18:04:49
--- NOTE | 2019-10-03 18:22 | Cardiology Report ---
APPROVED REPORT EXAM: Comprehensive 2D, Doppler, and color-flow Echocardiogram [employer] Equipment Mechanic Supervisor: Rica Rangel RT(R) Ht: 6 ft 0 in Wt: 166lbs BSA: 1.97 BP: 92/56 mmHg Indications: Chest tightness, hx of syncope, recent afib with hospitalization in [place], pleural effusions, HTN, Hyperlipidemia, family hx of HD, CHF, LBBB, recent hip surgery 08/23/19. 2D Dimensions LVOT 1.89 cm (M/F) 1.5-2.5 M-Mode Dimensions RVDd 2.01 cm (0.9-2.6)LVDd 5.28 cm (3.5-5.7) LVDs 4.48 cm (3.5-5.7)IVSd 0.99 cm (0.6-1.1) PWd 0.99 cm (0.6-1.1)EF (Teich) 31.80% FS 15.20% EDV (Teich) 134.20 mL ESV (Teich) 91.50 mL LV Diastology E/A Ratio 1.56 Mitral Valve MV A Velocity 78.00 (40-130 cm/s) Left Ventricle Left atrium is moderately enlarged, left ventricle is mildly dilated, there is severely soft ventricular systolic function, visually estimated ejection fraction approximately 30%, there is abnormal septal motion, grade 2 diastolic dysfunction seen with tissue Doppler evidence of raise left atrial pressure. Right Ventricle Right atrium and right ventricular normal size and contractility. Aortic Valve Aortic valve is thickened and calcified leaflet continue to display good mobility, there is no aortic stenosis, there is mild aortic insufficiency. Mitral Valve Mitral valve leaflets are minimally thickened, there is no mitral stenosis, there is severe mitral regurgitation. Tricuspid Valve Tricuspid valve is grossly normal, there is mild tricuspid regurgitation, calculated right ventricular systolic pressure is 47 mmHg. Pulmonic Valve Pulmonic valve is poorly visualized. Great Vessels Aortic root is normal size. Pericardium No significant pericardial effusion noted. Conclusion 1. Moderately enlarged left atrium, mildly dilated left ventricle, severely this left ventricular systolic function, visually estimated ejection fraction 30%, there is abnormal septal motion, grade 2 diastolic dysfunction seen with tissue Doppler evidence of raise left atrial pressure. 2. Thickened and calcified aortic valve without aortic stenosis, there is mild aortic insufficiency. 3. Severe mitral regurgitation. 4. Mild tricuspid regurgitation noted, calculated right ventricular systolic pressure is 47 mmHg. 5. No significant pericardial effusion noted, there is left-sided pleural effusion seen Electronically signed by : Faraz Mcnair, 10/03/2019 18:21:56
[2019-10-04 06:07] LABS: Basophils # 0.1 K/mm3 (0-0.2); Basophils % 0.5 % (0.1-2.0); Eosinophils # 0.1 K/mm3 (0.0-0.4); Eosinophils % 0.7 % (0.1-12.0); Hematocrit 38.1 % (42.0-52.0); Hemoglobin 12.6 g/dL (14.1-18.0); Lymphocytes # 3.9 K/mm3 (0.7-4.5); Lymphocytes % 33.1 % (10-50); Mean Corpuscular HGB Conc 33.1 g/dL (31.8-35.4); Mean Corpuscular Volume 96.4 fl (80-94); Mean Platelet Volume 9.1 fl (7.4-10.4); Monocytes # 1.3 K/mm3 (0.1-1.0); Neutrophils # 6.4 K/mm3 (1.8-7.8); Neutrophils % 54.7 % (37.0-80.0); Platelet Count 246 K/mm3 (142-424); Red Blood Count 3.95 M/mm3 (4.60-6.20); Red Cell Distribution Width 13.5 % (11.5-17.5); White Blood Count 11.7 K/mm3 (4.8-10.8)
[2019-10-04 06:31] LABS: Calcium 8.5 mg/dL (8.5-10.1)
--- NOTE | 2019-10-04 07:47 | Progress Note ---
Internal Medicine - PN: Subj *Date: 10/04/19 *Time: 07:44 Interval history: Patient has no complaints this morning. He slept well overnight. Nursing staff had to remove patient's [place] catheter due to leaking. Patient remains on supplemental oxygen. Nursing staff also reports patient has bounced in and out of atrial fibrillation overnight Exam Vital signs and Labs for Last 24 Hours: Temp Pulse Resp BP Pulse Ox 98.2 F 76 16 101/53 L 90 L 10/04/19 04:00 10/04/19 04:00 10/04/19 04:00 10/04/19 04:00 10/04/19 04:00 Laboratory Results - last 24 hr 10/03/19 08:37: WBC 11.5 H D, RBC 3.97 L, Hgb 12.7 L D, Hct 39.1 L, MCV 98.5 H, MCH 32.0 H, MCHC 32.5, RDW 13.5, Plt Count 240, MPV 9.1, Neut % (Auto) 69.5, Lymph % (Auto) 22.3, [place] % (Auto) 7.2, Eos % (Auto) 0.4, Baso % (Auto) 0.5, Neut # (Auto) 8.0 H, Lymph # (Auto) 2.6, [place] # (Auto) 0.8, Eos # (Auto) 0.1, Baso # (Auto) 0.1 10/03/19 08:37: PT 32.7 H, INR 3.33 H 10/03/19 08:37: Sodium 141, Potassium 3.5, Chloride 104, Carbon Dioxide 28, Anion Gap 12.5, BUN 20 H, Creatinine 1.72 H, Estimated Creat Clear 34, Estimated GFR 38 L, Est GFR ( Amer) 46 L, Glucose 135 H D, Calcium 8.2 L 10/04/19 05:35: Troponin I 0.09 H 10/04/19 05:35: WBC 11.7 H, RBC 3.95 L, Hgb 12.6 L, Hct 38.1 L, MCV 96.4 H, MCH 31.8 H, MCHC 33.1, RDW 13.5, Plt Count 246, MPV 9.1, Neut % (Auto) 54.7, Lymph % (Auto) 33.1, [place] % (Auto) 11.0 H, Eos % (Auto) 0.7, Baso % (Auto) 0.5, Neut # (Auto) 6.4, Lymph # (Auto) 3.9, [place] # (Auto) 1.3 H, Eos # (Auto) 0.1, Baso # (Auto) 0.1 10/04/19 05:35: Sodium 138, Potassium 3.0 L, Chloride 100, Carbon Dioxide 28, Anion Gap 13.0, BUN 19 H, Creatinine 1.48 H, Estimated Creat Clear 40, Estimated GFR 46 L, Est GFR ( Amer) 55 L, Glucose 85 D, Calcium 8.5 I & O for Last 24 hours: Intake & Output 10/01/19 10/02/19 10/03/19 10/04/19 11:59 11:59 11:59 11:59 Intake Total 2140 / 2140 240 / 240 Output Total 0 / 0 2300 / 2300 Balance 2140 / 2140 -2059 / -2059 Weight 159 lb 4 oz 157 lb 7 oz Narrative: Patient appears comfortable in bed. Nasal cannula is in place. Lungs continue to have bibasilar crackles left more so than right. Heart has a regular rate and rhythm. Assessment and Plan (1) Acute congestive heart failure Current visit: Yes Status: Acute Category: Medical Code(s): I50.9 - Heart failure, unspecified (2) Respiratory failure with hypoxia Current visit: Yes Status: Acute Qualifiers: Chronicity: acute Qualified Code(s): J96.01 - Acute respiratory failure with hypoxia Category: Medical Code(s): J96.91 - Respiratory failure, unspecified with hypoxia (3) Atrial fibrillation Current visit: Yes Status: Acute Category: Medical Code(s): I48.91 - Unspecified atrial fibrillation (4) Systolic and diastolic CHF, acute on chronic Current visit: Yes Status: Acute Category: Medical Code(s): I50.43 - Acute on chronic combined systolic (congestive) and diastolic (congestive) heart failure (5) Severe mitral regurgitation Current visit: Yes Status: Acute Category: Medical Code(s): I34.0 - Nonrheumatic mitral (valve) insufficiency - Assessment and plan all Dx Assessment and Plan for all problems:: 1. Repeat chest x-ray today. Continue Lasix daily. I will reach out to his olive packer to discuss any changes in plan of care
[2019-10-05 07:05] LABS: INR 1.82 (0.9-1.1); Prothrombin Time 18.4 seconds (9.4-11.8)
[2019-10-05 07:13] LABS: Calcium 8.8 mg/dl (8.4-10.2)
[2019-10-05 07:40] LABS: Anion Gap 10.2 mEq/L (5-15)
--- NOTE | 2019-10-05 08:19 | Progress Note ---
Internal Medicine - PN: Subj *Date: 10/05/19 *Time: 08:16 Interval history: Patient slept overnight. He admits he still getting short of breath with movements within the bed and ambulating back and forth to the unit bathroom. He was strong enough to shave last night. Nursing staff reports what appears to be a 15 beat run of ventricular tachycardia for which the patient was asymptomatic. I did speak with patient's typing pool supervisor late last night regarding his condition and discussion has previously been had with the patient about further intervention to better synchronize the right and left ventricle. When I speak with the patient about this this morning he does not really recall that conversation. Exam Vital signs and Labs for Last 24 Hours: Temp Pulse Resp BP Pulse Ox 98.7 F 79 17 106/65 L 92 L 10/05/19 04:00 10/05/19 04:00 10/05/19 04:00 10/05/19 04:00 10/05/19 04:00 Laboratory Results - last 24 hr 10/05/19 05:30: Sodium 133 L, Potassium 3.2 L, Chloride 96 L, Carbon Dioxide 30, Anion Gap 10.2, BUN 18, Creatinine 1.30 H, Estimated Creat Clear 44, Estimated GFR 53 L, Est GFR ( Amer) 64, Glucose 91, Calcium 8.8 10/05/19 05:30: PT 18.4 H, INR 1.82 H I & O for Last 24 hours: Intake & Output 10/02/19 10/03/19 10/04/19 10/05/19 11:59 11:59 11:59 11:59 Intake Total 2140 / 2140 480 / 480 1090 / 1090 Output Total 0 / 0 2300 / 2300 75 / 75 Balance 2140 / 2140 -1820 / -1820 1015 / 1015 Weight 159 lb 4 oz 157 lb 7 oz 155 lb 9 oz Microbiology Reports for the Last 24 Hours: Microbiology 10/02/19 16:20 Blood Blood Culture - Preliminary NO GROWTH AFTER 48 HOURS 10/02/19 16:20 Blood Blood Culture - Preliminary NO GROWTH AFTER 48 HOURS Narrative: Patient is awake and alert. Heart has a regular rate and rhythm. Patient has faint rales in the bases bilaterally. Lower extremities have no edema Assessment and Plan (1) Acute congestive heart failure Current visit: Yes Status: Acute Category: Medical Code(s): I50.9 - Heart failure, unspecified (2) Respiratory failure with hypoxia Current visit: Yes Status: Acute Qualifiers: Chronicity: acute Qualified Code(s): J96.01 - Acute respiratory failure with hypoxia Category: Medical Code(s): J96.91 - Respiratory failure, unspecified with hypoxia (3) Atrial fibrillation Current visit: Yes Status: Acute Category: Medical Code(s): I48.91 - Unspecified atrial fibrillation (4) Systolic and diastolic CHF, acute on chronic Current visit: Yes Status: Acute Category: Medical Code(s): I50.43 - Acute on chronic combined systolic (congestive) and diastolic (congestive) heart failure (5) Severe mitral regurgitation Current visit: Yes Status: Acute Category: Medical Code(s): I34.0 - Nonrheumatic mitral (valve) insufficiency - Assessment and plan all Dx Assessment and Plan for all problems:: In speaking with his typing pool supervisor last night discussion was had about further outpatient or inpatient intervention. Due to patient's V. tach along with some persistence of his mild CHF we will arrange inpatient transfer to [facility] through Dr. Gonzalez.
--- NOTE | 2019-10-05 08:25 | Discharge Summary ---
General - General Admission date:: 10/02/19 Discharge date: 10/05/19 HPI HPI: 79-year-old male with history of atrial fibrillation and a recent 6-day hospitalization at [facility] for A. fib and shortness of breath presented to the emergency department after onset of chest tightness yesterday afternoon. Patient reports he was out eating lunch when he felt like a truck had run over his chest. Patient decided to go home and rest. When he began to feel short of breath and his anxiety increased he presented to the emergency department. In the emergency department patient had a negative troponin. EKG shows a left bundle branch block. Patient's cement sack breaker was contacted about possible transfer when patient was found to be in acute congestive heart failure. Patient's cement sack breaker felt like we could manage this problem here and the pat ient was admitted with IV Lasix and placed on BiPAP. Patient reports recent 6-day stay at [facility] when he went to the ER there because he believed he was in A. fib. Apparently initially he was not in A. fib but later on runs of atrial fibrillation were detected. He does not recall much about the rest of the stay at the hospital. His does not believe he ever had an echocardiogram although this was discussed but she admits she could be wrong. He was in the hospital from September 25 to September 30. Hospital Course Hospital Course: Patient was admitted on BiPAP and given intravenous Lasix. Patient had excellent response to intravenous Lasix which in less than 24 hours improved patient's oxygenation enough that he was weaned from BiPAP and placed on supplemental oxygen. Patient was kept on telemetry throughout hospitalization and primarily was in sinus rhythm although would occasionally have brief runs of atrial fibrillation and on the evening of October 04 had about a 15 beat run of what appears to be V. tach on telemetry monitoring. I reached out to patient's cement sack breaker Dr. Sreekanth Gonzalez guarding the patient's case and care. It was felt that patient is an ideal candidate for biventricular resynchronization therapy which would improve his congestive heart failure symptoms. On the morning of October 05 patient reported that he was still having shortness of breath with even light activity. Patient did develop mild hypokalemia from his use of diuretics and was started on oral potassium replacement. While he cont inued to diurese well from IV Lasix decision was made to transfer to the care of Dr. Gonzalez at [facility] for further intervention. When patient presented to the ER his INR was above goal for his atrial fibrillation. Patient had previously been on Eliquis but his orthopedic surgeon preferred Coumadin postoperatively after his hip replacement on August 23. Patient has been on an adequate course of warfarin as an anticoagulant and he may resume use of his Eliquis in the future. I have discussed this with the patient. He will need to wait until his INR is below 2 before resuming his Eliquis. 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 Patient was treated with outpatient antibiotics. Prior to his discharge a repeat urine culture was obtained Objective Vital signs: Temp Pulse Resp BP Pulse Ox 98.7 F 79 17 106/65 L 92 L 10/05/19 04:00 10/05/19 04:00 10/05/19 04:00 10/05/19 04:00 10/05/19 04:00 Results Labs on day of discharge: Labs from last 24 hours 10/05/19 10/05/19 05:30 05:30 PT 18.4 H INR 1.82 H Sodium 133 L Potassium 3.2 L Chloride 96 L Carbon Dioxide 30 Anion Gap 10.2 BUN 18 Creatinine 1.30 H Estimated Creat Clear 44 Estimated GFR 53 L Est GFR ( Amer) 64 Glucose 91 Calcium 8.8 Preliminary micro results at discharge 10/02/19 16:20 Blood Culture - Preliminary Blood NO GROWTH AFTER 48 HOURS 10/02/19 16:20 Blood Culture - Preliminary Blood NO GROWTH AFTER 48 HOURS DS: Diagnosis - Discharge Diagnosis (1) Acute congestive heart failure Status: Acute (2) Respiratory failure with hypoxia Status: Acute (3) Atrial fibrillation Status: Acute (4) Systolic and diastolic CHF, acute on chronic Status: Acute (5) Severe mitral regurgitation Status: Acute (6) Hypokalemia Status: Acute Discharge Plan - Patient Discharge Instructions ACTIVITY: Continue current activity Patient Instructions: DI for Heart Failure, DI for Atrial Fibrillation, DI for Multiple Drug-resistant Organism (MDRO) Infection, DI for Respiratory Failure - Follow up Plan Follow up with: Dwayne Eli MD [Staff Physician] - Disposition: Xfer Short-Term Hosp Home Medications: Home Medications Medication Instructions Recorded Confirmed Type Amiodarone HCl 200 mg PO BID 06/14/18 10/02/19 History Pravastatin Sodium [Pravachol 40mg 40 mg PO HS 06/14/18 10/02/19 History Tablet] carvediloL [Carvedilol 12.5mg Tab] 12.5 mg PO BID 06/14/18 10/02/19 History levothyroxine 50 mcg tablet 50 mcg PO DAILY tab 09/01/19 10/02/19 History tamsulosin 0.4 mg capsule 0.4 mg PO HS 09/01/19 10/02/19 History Warfarin Sodium [Coumadin 1mg 1 mg PO HS 09/07/19 10/02/19 History tablet] Furosemide [Lasix 20mg tab] 20 mg PO DAILY 10/02/19 10/02/19 History Iron [Iron 18mg Tab] 65 mg PO HS 10/02/19 10/02/19 History Gabapentin [Gabapentin 300mg Cap] 300 mg PO DAILY 10/03/19 10/03/19 History Prescriptions/Medication Reconciliation: Continued levothyroxine 50 mcg tablet 50 mcg PO DAILY tab tamsulosin 0.4 mg capsule 0.4 mg PO HS Amiodarone HCl 200 mg PO BID Pravastatin Sodium [Pravachol 40mg Tablet] 40 mg PO HS carvediloL [Carvedilol 12.5mg Tab] 12.5 mg PO BID Furosemide [Lasix 20mg tab] 20 mg PO DAILY Gabapentin [Gabapentin 300mg Cap] 300 mg PO DAILY Iron [Iron 18mg Tab] 65 mg PO HS Discontinued Warfarin Sodium [Coumadin 1mg tablet] 1 mg PO HS - Problem Reconciliation Problems Reviewed?: Yes
--- NOTE | 2019-10-07 08:00 | Electrocardiograph Report ---
APPROVED REPORT Exam: Resting ECG HR:85 bpm ECG Measurements Heart Rate 85 AXES QRSd 178 QRS -73 QT 486 T84 QTc 578 <Conclusion> Atrial fibrillation with premature ventricular or aberrantly conducted complexes Left axis deviation Nonspecific intraventricular block Lateral infarct, age undetermined Inferior infarct, age undetermined Abnormal ECG Electronically signed by : Dwayne Wheeler, 10/07/2019 08:00:29
== END 2019-10-05 17:55 | disposition short-term general hospital (02) | DRG 291 ==
LOC: ER 15:17 → 2ND 18:13
PROVIDERS: ADMIT Internal Medicine Adolescent Medicine; ATTEND Family Medicine

== ENCOUNTER → 2020-02-24 15:29 | Outpatient (CLI) | payer MEDICARE, SELFPAY ==
[2020-02-24 15:33] LABS: Microscopic, Urine URINE MICROSCOPIC (MICROSCOPIC)
[2020-02-24 15:41] LABS: Appearance,Urine CLEAR (Clear); Bilirubin,Urine Negative (Negative); Blood, Urine Negative (Negative); Color,Urine YELLOW (Yellow); Glucose,Urine (UA) Negative (Negative); Ketones,Urine Negative (Negative); Leukocyte Esterase,Urine Negative (Negative); Nitrate,Urine Negative (Negative); Protein,Urine Negative (Negative); Specific Gravity, Urine 1.015 (1.005-1.030); Urobilinogen,Urine 0.2 EU/dl (0.2)
[2020-02-24 15:48] LABS: Squamous Epithelial Cell,Urine Occasional #/hpf (0-5); WBC,Urine Occasional #/hpf (0-3)
== END ==
PROVIDERS: Visit Provider Family Medicine
DX: N39.0 Urinary tract infection, site not specified (principal)
CPT/HCPCS: 81001

== ENCOUNTER → 2020-05-02 13:59 | Outpatient (CLI) | payer MEDICARE, SELFPAY ==
--- NOTE | 2020-05-02 14:09 | XR_ITS ---
PROCEDURE: XR CHEST 2V CLINICAL HISTORY: ESSENTIAL PRIMARY HYPERTENSION COMPARISON: CR XR CHEST PORTABLE from 10/02/2019 CR XR CHEST PORTABLE from 10/03/2019 DX XR CHEST 2V from 10/04/2019 FINDINGS: Borderline cardiomegaly without failure. Biventricular pacemaker and right atrial pacer wire present from left subclavian approach. The lungs are clear of acute infiltrate. There is a 5 mm nodule in the left upper lobe not significantly changed. A calcified granulomas present in the left lower lobe and left paraspinal region. No acute bony abnormalities. IMPRESSION: Borderline cardiomegaly with pacemaker present. Stable pulmonary nodules. No change with no acute finding Dictated by: Nasir Gonzáles MD 05/02/2020 15:56 Nasir Gonzáles MD in [place] 05/02/2020 15:56
== END ==
PROVIDERS: PCP Family Medicine; Visit Provider Family Medicine
DX: I10 Essential (primary) hypertension (principal)
CPT/HCPCS: 71046

== ENCOUNTER → 2021-01-30 13:45 | Outpatient (CLI) | payer MEDICARE, SELFPAY ==
[2021-01-30 14:53] LABS: Blood Urea Nitrogen 20 mg/dl (9-20); Estimated Glomerular Filt Rate 58 ml/min (>60); GFR (African American) 70 ML/MIN (>60)
== END ==
PROVIDERS: Visit Provider Family Medicine
DX: R06.02 Shortness of breath (principal)
CPT/HCPCS: 36415; 82565; 84520

== ENCOUNTER → 2021-02-05 12:39 | Outpatient (CLI) | payer MEDICARE, SELFPAY ==
--- NOTE | 2021-02-05 12:44 | CT_ITS ---
PROCEDURE INFORMATION: Exam: CT Chest Without and With Contrast; Diagnostic Exam date and time: 02/05/2021 12:44 PM Age: 80 years old Clinical indication: Dyspnea; Additional info: Shortness of breath TECHNIQUE: Imaging protocol: Diagnostic computed tomography of the chest without and with contrast. Radiation optimization: All CT scans at this facility use at least one of these dose optimization techniques: automated exposure control; mA and/or kV adjustment per patient size (includes targeted exams where dose is matched to clinical indication); or iterative reconstruction. Contrast material: ISOVUE 370; Contrast volume: 75 ml; Contrast route: IV; COMPARISON: 1. CR XR CHEST 2V 05/02/2020 2:23 PM 2. DX XR CHEST 2V 10/04/2019 9:42 AM FINDINGS: Tubes, catheters and devices: AICD projects in satisfactory location. Lungs: The lungs are hyperinflated, consistent with underlying small airways disease. Atelectatic changes within the lung bases. Granulomatous density measuring 5 mm present within the left upper lobe. Pleural spaces: Apical pleural thickening noted bilaterally. There is no evidence of pneumothorax. Heart: The heart demonstrates mild diffuse enlargement. The heart demonstrates mild diffuse enlargement. There is mild atherosclerotic calcification of the coronary arteries. Aorta: Ectatic changes of the ascending thoracic aorta present measuring up to 4.4 cm. The vasculature demonstrates diffuse mild atherosclerotic calcification. Lymph nodes: Calcified left hilar lymph nodes present. Bones/joints: The thoracic spine demonstrates mild degenerative changes at multiple levels. No acute fracture. Soft tissues: There are no soft tissue masses or fluid collections. IMPRESSION: 1. The lungs are hyperinflated, consistent with underlying small airways disease. 2. Ectatic changes of the ascending thoracic aorta present measuring up to 4.4 cm. 3. There is no evidence of pneumothorax. 4. Atelectatic changes within the lung bases.
== END ==
PROVIDERS: PCP Family Medicine; Visit Provider Family Medicine
DX: R06.02 Shortness of breath (principal)
CPT/HCPCS: 71270; Q9967

== ENCOUNTER 2021-04-03 18:29 | Emergency (ER) | payer MEDICARE, SELFPAY ==
[2021-04-03 18:29] VITALS: BP 124/74; PULSE 85; RESP 16; TEMP 36.8; O2SAT 98; BMI 20.9
[2021-04-03 20:41] VITALS: BP 150/85; PULSE 94; RESP 16; TEMP 36.6; O2SAT 97; BMI 20.9
--- NOTE | 2021-04-03 20:41 | HMH.EDUTC ---
[facility] [place] Clinical Impression: Right lateral epicondylitis, Right elbow pain Disposition: Home, Self-Care Condition on Discharge: Good Instructions: Lateral Epicondylitis Additional Instructions: Rest the extremity, Wear the shady wrap for compression, Elevate the extremity as tolerated while you are resting. Wear the arm sling for comfort only. If it doesn't help then you don't have to wear it. You probably won't need to sleep in it. But, if it helps your discomfort then wear it. Start the oral medications that I sent to your pharmacy tomorrow. Follow up with Dr. Jackson (orthopedics). Some times a tendonitis like this is hard to get completely better. If it's not starting to get better within 48 hours, please follow up with orthopedics. I put in a referral but you need to call his office and schedule an appointment. Follow up with your regular doctor. GO TO THE ER FOR ANY WORSENING SYMPTOMS Prescriptions: methylPREDNISolone [Medrol] 4 mg PO DIRECTED 6 Days #21 tab.ds.pk Transmission Status: Received by [id number] Referrals: Navin Knott MD [Primary Care Provider] - Yasir Jackson MD [Staff Physician] - Time of Disposition: 21:19 Medical Decision Making - Medical Records Medical records reviewed: No: I reviewed the patient's medical records. - Dandy Inquiry Pt receiving controlled substance: No Vital Signs: 04/03/21 18:29 04/03/21 20:41 04/03/21 21:29 Temperature 98.2 F 97.8 F 98 F Temperature Source Oral Oral Pulse Rate 84 Pulse Rate [Right] 85 94 H Respiratory Rate 16 16 18 Blood Pressure 145/80 H Blood Pressure [Right Arm] 124/74 150/85 H Blood Pressure Mean [Right Arm] 90 106 02 Sat by Pulse Oximetry 98 97 Oxygen Delivery Method Room Air Orders (Tests/Meds): ED MEDICATIONS Discontinued Medications Generic Name Dose Route Start Last Admin Trade Name Freq PRN Reason Stop Dose Admin Ketorolac Tromethamine 30 mg 04/03/21 20:47 04/03/21 21:16 Ketorolac 60mg/2ml Vial IM 04/03/21 20:48 30 mg ONCE ONE Administration Methylprednisolone Sodium Succinate 125 mg 04/03/21 20:47 04/03/21 21:16 Methylprednisolone Sod Succ 125mg Vial IM 04/03/21 20:48 125 mg ONCE ONE Administration [facility] [place] - General Stated complaint: rt arm pain, weakness Time Seen by Provider: 04/03/21 20:41 Mode of Arrival: Ambulatory Source of Information: Patient Limitations: No Limitations Description of Symptoms (Recalled from Triage Doc. by RN): Patient c/o pain in his right arm for the last five days. Patient stated in triage, my right arm hurts worse when I use it. Earlier it hurt to hold a phone and talk. Patient denies any injury arm. Patient has full ROM in arm. Patient has cap refill less than two seconds and 2+ palpable brachial and radial pulses. - History of Present Illness Provider Complaint: He c/o right elbow pain that is worse when he flexes his elbow. He states that his pain started after he cut a lot of corn off the cob. He denies any chest pain or shortness of breath. - Related Data Home Medications Medication Instructions Recorded Confirmed Amiodarone HCl 200 mg PO BID 06/14/18 10/02/19 Pravastatin Sodium [Pravachol 40mg 40 mg PO HS 06/14/18 10/02/19 Tablet] carvediloL [Carvedilol 12.5mg Tab] 12.5 mg PO BID 06/14/18 10/02/19 levothyroxine 50 mcg tablet 50 mcg PO DAILY tab 09/01/19 10/02/19 tamsulosin 0.4 mg capsule 0.4 mg PO HS 09/01/19 10/02/19 Furosemide [Lasix 20mg tablet] 20 mg PO DAILY 10/02/19 10/02/19 Iron [Iron 18mg Tab] 65 mg PO HS 10/02/19 10/02/19 Gabapentin [Gabapentin 300mg Cap] 300 mg PO DAILY 10/03/19 10/03/19 Previous Rx's Medication Instructions Recorded methylPREDNISolone [Medrol] 4 mg PO DIRECTED 6 Days #21 04/03/21 tab.ds.pk Allergies Allergy/AdvReac Type Severity Reaction Status Date / Time No Known Allergies Allergy Verified 10/02/19 15:22 [facility] History - Hepatitis
[2021-04-03 21:29] VITALS: BP 145/80; PULSE 84; RESP 18; TEMP 36.6
== END 2021-04-03 21:34 | disposition home or self-care (01) ==
LOC: ER 18:45 → UTC 19:04
PROVIDERS: Emergency Provider Nurse Practitioner Family; PCP Family Medicine
DX: M77.11 Lateral epicondylitis, right elbow (principal); I48.0 Paroxysmal atrial fibrillation; I10 Essential (primary) hypertension; E78.5 Hyperlipidemia, unspecified; Z96.642 Presence of left artificial hip joint
CPT/HCPCS: G0463; 96372; 99202

== ENCOUNTER 2021-05-31 20:02 | Emergency (ER) | payer MEDICARE, SELFPAY ==
[2021-05-31 20:15] VITALS: BP 137/87; PULSE 91; RESP 20; TEMP 37; O2SAT 97; BMI 20.9
--- NOTE | 2021-05-31 20:25 | HMH.EDUTC ---
[facility] – [place] Dis[place] Clinical Impression: Right elbow pain Disposition: Home, Self-Care Condition on Discharge: Good Instructions: Lateral Epicondylitis, DI for Tendinitis Additional Instructions: *RICE, Rest the extremity, Ice 15-20 minutes 3-4 times daily, Compress- wear the shady wrap as discussed as much as possible to help reduce swelling and pain, Elevate the extremity when at rest *Sling is for support and help control swelling, use it except in the shower. Be sure that is not to tight but not to loose either *Elevate when resting *Ibuprofen as directed on package every 6-8 hours as needed for pain an inflammation if your doctor has said you can take it. If not or you need something more can take Tylenol in between doses of Ibuprofen to help Immediately follow up with your family doctor for new or worsening of symptoms, or no noticeable improvement over the next 3-5 days Start oral Medrol dose pack tomorrow Return if needed Straight to ER if any life threatening symptoms Over the counter lidocaine patches may help with pain apply as directed Prescriptions: methylPREDNISolone [Medrol 4mg tab] 4 mg PO DIRECTED #21 tab Transmission Status: Pending to [id number] Referrals: Navin Knott MD [Primary Care Provider] - As needed Time of Disposition: 20:46 Medical Decision Making - Dandy Inquiry Pt receiving controlled substance: No Dandy was queried for this patient: No Vital Signs: 05/31/21 20:15 05/31/21 20:52 Temperature 98.6 F 98.6 F Temperature Source Oral Pulse Rate 91 H Pulse Rate [Left Brachial] 91 H Respiratory Rate 20 20 Blood Pressure 137/87 Blood Pressure [Left Arm] 137/87 Blood Pressure Mean [Left Arm] 103 Blood Pressure Source [Left Arm] Automatic Cuff Blood Pressure Position [Left Arm] Sitting 02 Sat by Pulse Oximetry 97 Oxygen Delivery Method Room Air Orders (Tests/Meds): ED MEDICATIONS Discontinued Medications Generic Name Dose Route Start Last Admin Trade Name Freq PRN Reason Stop Dose Admin Ketorolac Tromethamine 30 mg 05/31/21 20:43 05/31/21 20:51 Ketorolac 60mg/2ml Vial IM 05/31/21 20:44 30 mg ONCE ONE Administration Methylprednisolone Sodium Succinate 125 mg 05/31/21 20:43 05/31/21 20:51 Methylprednisolone Sod Succ 125mg Vial IM 05/31/21 20:44 125 mg ONCE ONE Administration Medical Decision Narrative: Discussed xray and patient declined state that this is exactly how it happened last time and he did not want xray he did not fall or hit it just wants a shot to help with the pain and go home medication discussed with pharmacy [facility] [place] HPI - General Stated complaint: Pain R elbow Time Seen by Provider: 05/31/21 20:25 Mode of Arrival: Ambulatory Source of Information: Patient Limitations: No Limitations Description of Symptoms (Recalled from Triage Doc. by RN): PATIENT C/O RIGHT ELBOW PAIN THAT STARTED YESTERDAY. NO KNOWN INJURY HEENT Symptoms (Recalled from RN notes): No Resp Symptoms (Recalled from RN notes): No Skin Symptoms (Recalled from RN notes): No MS Symptoms (Recalled from RN notes): Yes Functional Status (Recalled from RN notes): WNL - History of Present Illness Provider Complaint: Patient states that he was using trimmers yesterday trimming bushes and thinks he may have over did it States that he started having some pain in his right elbow when he would move it or try to straighten his arm and felt like he may have pulled something States that he used some muscle rub on it and it felt a little better but earlier he went to rip open a carton of pop and pain started again States that he has not hit it or fallen and denies radiation of pain States that pain only occurs when he tries to straighten his arm - Related Data Home Medications Medication Instructions Recorded Confirmed Amiodarone HCl 200 mg PO BID 06/14/18 10/02/19 Pravastatin Sodium [Pravachol 40mg 40 mg PO HS 06/14/18 10/02/19 Tablet] carvediloL
[2021-05-31 20:52] VITALS: BP 137/87; PULSE 91; RESP 20; TEMP 37; O2SAT 97
== END 2021-05-31 21:10 | disposition home or self-care (01) ==
PROVIDERS: Emergency Provider Nurse Practitioner; PCP Family Medicine
DX: M25.521 Pain in right elbow
CPT/HCPCS: 96372; 99202; G0463

== ENCOUNTER 2021-06-23 19:26 | Emergency (ER) | payer MEDICARE, SELFPAY ==
[2021-06-23 19:43] VITALS: BP 137/78; PULSE 87; RESP 18; TEMP 36.4; O2SAT 96; BMI 20.9
--- NOTE | 2021-06-23 19:48 | HMH.EDUTC ---
[facility] [place] Clinical Impression: Right elbow pain, Right elbow tendonitis Disposition: Home, Self-Care Condition on Discharge: Good Instructions: DI for Lateral Epicondylitis (Tennis Elbow), Lateral Epicondylitis Additional Instructions: Rest the extremity, Elevate the extremity as tolerated while you are resting. Follow up with Dr. Jackson (orthopedics). I put in a referral but you need to call his office and schedule an appointment. Follow up with your regular doctor. GO TO THE ER FOR ANY WORSENING SYMPTOMS Prescriptions: methylPREDNISolone [Medrol] 4 mg PO DIRECTED 6 Days #21 packet Transmission Status: Pending to [id number] Referrals: Navin Knott MD [Primary Care Provider] - Yasir Jackson MD [Staff Physician] - Time of Disposition: 20:01 Medical Decision Making - Medical Records Medical records reviewed: No: I reviewed the patient's medical records. - Dandy Inquiry Pt receiving controlled substance: No Vital Signs: 06/23/21 19:43 Temperature 97.6 F Temperature Source Oral Pulse Rate [Left] 87 Respiratory Rate 18 Blood Pressure [Right Arm] 137/78 Blood Pressure Mean [Right Arm] 97 02 Sat by Pulse Oximetry 96 [facility] [place] - General Stated complaint: tendonitis in rt arm Time Seen by Provider: 06/23/21 19:48 Mode of Arrival: Ambulatory Source of Information: Patient Limitations: No Limitations Description of Symptoms (Recalled from Triage Doc. by RN): pt c/o of R elbow pain. pt states he was diagnosed earlier this year with tendonitis. HEENT Symptoms (Recalled from RN notes): No Resp Symptoms (Recalled from RN notes): No Skin Symptoms (Recalled from RN notes): No MS Symptoms (Recalled from RN notes): Yes (R elbow pain) Functional Status (Recalled from RN notes): na - History of Present Illness Provider Complaint: He states he is having a flare up of tendonitis of his right elbow. His symptoms began earlier today. He has had similar symptoms to these before and a steroid and toradol shot got it to feel better. He is requesting those again. He refuses an x-ray. He denies any history of trauma or fall. - Related Data Home Medications Medication Instructions Recorded Confirmed Amiodarone HCl 200 mg PO BID 06/14/18 10/02/19 Pravastatin Sodium [Pravachol 40mg 40 mg PO HS 10/29/18 02/16/20 Tablet] carvediloL [Carvedilol 12.5mg Tab] 12.5 mg PO BID 06/14/18 10/02/19 levothyroxine 50 mcg tablet 50 mcg PO DAILY tab 09/01/19 10/02/19 tamsulosin 0.4 mg capsule 0.4 mg PO HS 09/01/19 10/02/19 Furosemide [Lasix 20mg tablet] 20 mg PO DAILY 10/02/19 10/02/19 Iron [Iron 18mg Tab] 65 mg PO HS 10/02/19 10/02/19 Gabapentin [Gabapentin 300mg Cap] 300 mg PO DAILY 10/03/19 10/03/19 Previous Rx's Medication Instructions Recorded methylPREDNISolone [Medrol] 4 mg PO DIRECTED 6 Days #21 04/03/21 tab.ds.pk methylPREDNISolone [Medrol 4mg 4 mg PO DIRECTED #21 tab 05/31/21 tab] methylPREDNISolone [Medrol] 4 mg PO DIRECTED 6 Days #21 06/23/21 packet Allergies Allergy/AdvReac Type Severity Reaction Status Date / Time No Known Allergies Allergy Verified 10/02/19 15:22 - Worker's Comp Is this a Worker's Comp case?: No [facility] History - Hepatitis A Screen Drug use history?: No High risk sexual behaviors?: No History of sexually transmitted infection?: No Currently employed?: No Childcare worker?: No Do you have indoor plumbing?: Yes Do you have electricity?: Yes Attestation statement:: This patient has been screened for Hepatitis A risk factors. I have reviewed the patient's past medical history: Yes Medical History: Reports:: Atrial Fibrillation, Congestive Heart Failure, Hyperlipidemia, Hypertension Denies:: Diabetes Mellitus Type 1, Diabetes Mellitus Type 2 Other Medical History: Reports: Arthritis Laterality Cases: Left: Total Hip Replacement, Bilateral: Tonsillectomy Other Surgeries: Yes: Splenectomy Amputation: No - Social Hist
[2021-06-23 20:16] VITALS: BP 137/78; PULSE 87; RESP 19; TEMP 36.4
== END 2021-06-23 20:18 | disposition home or self-care (01) ==
PROVIDERS: Emergency Provider Nurse Practitioner Family; PCP Family Medicine
DX: M77.8 Other enthesopathies, not elsewhere classified (principal); I48.0 Paroxysmal atrial fibrillation; E78.5 Hyperlipidemia, unspecified; I10 Essential (primary) hypertension; Z79.899 Other long term (current) drug therapy
CPT/HCPCS: G0463; 96372; 99202

== ENCOUNTER → 2021-07-08 10:35 | Outpatient (CLI) | payer MEDICARE, SELFPAY ==
--- NOTE | 2021-07-08 10:40 | XR_ITS ---
PROCEDURE: XR CHEST 2V CLINICAL HISTORY: COUGH COMPARISON: CR XR CHEST PORTABLE from 10/03/2019 DX XR CHEST 2V from 10/04/2019 CR XR CHEST 2V from 05/02/[address] CHEST WO/W CON from 02/05/2021 FINDINGS: Biventricular pacemaker with right atrial lead is noted. Normal heart size. Biapical pleural thickening. No lobar consolidation or collapse. Small right pleural effusion. IMPRESSION: Pacemaker device in place with biapical pleural thickening and small right effusion Dictated by: Nasir Gonzáles MD 07/08/2021 11:02 Nasir Gonzáles MD in [facility] 07/08/2021 11:02
== END ==
PROVIDERS: PCP Family Medicine; Visit Provider Family Medicine
DX: R05.9 Cough, unspecified (principal)
CPT/HCPCS: 71046

== ENCOUNTER 2021-09-17 22:37 | Inpatient (IN) | payer MEDICARE, SELFPAY ==
[2021-09-17 22:38] VITALS: BP 136/84; PULSE 112; RESP 22; TEMP 37.1; O2SAT 85; BMI 20.3
--- NOTE | 2021-09-17 22:56 | ECG_ITS ---
APPROVED REPORT Exam: Resting ECG HR:112 bpm ECG Measurements Heart Rate 112 AXES [place] 129 P 19 QRSd 188 QRS -55 QT 407 T 125 QTc 473 Conclusion ELECTRONIC VENTRICULAR PACEMAKER ABNORMAL RHYTHM ECG UNCONFIRMED REPORT Electronically signed by : Dwayne Wheeler MD 09/26/2021 19:08:02
--- NOTE | 2021-09-17 23:03 | XR_ITS ---
PROCEDURE INFORMATION: Exam: XR Chest Exam date and time: 09/17/2021 11:03 PM Age: 80 years old Clinical indication: Dyspnea; Prior surgery; Surgery type: Pacemaker 2020 TECHNIQUE: Imaging protocol: XR of the chest. Views: 1 view. COMPARISON: CR XR CHEST 2V 07/08/2021 10:46 AM FINDINGS: Lungs: Patchy bilateral upper lobe ground-glass infiltrates, left lower lobe infiltrate. Pleural spaces: Bilateral pleural effusions. Heart/Mediastinum: Left subclavian pacemaker leads overlie the right atrium and right ventricle an epicardial lead. Bones/joints: Unremarkable. IMPRESSION: 1. Bilateral pleural effusions. 2. Patchy bilateral pulmonary infiltrates, fairly central. Suspect asymmetric pulmonary edema.
[2021-09-17 23:20] LABS: Basophils # 0.1 K/mm3 (0-0.2); Basophils % 0.4 % (0.1-2.0); Eosinophils % 0.1 % (0.1-12.0); Hematocrit 45.9 % (42.0-52.0); Hemoglobin 15.2 g/dL (14.1-18.0); Lymphocytes # 2.5 K/mm3 (0.7-4.5); Lymphocytes % 17.2 % (10-50); Mean Corpuscular HGB Conc 33.2 g/dL (31.8-35.4); Mean Corpuscular Hemoglobin 32.3 pg (27.0-31.2); Mean Corpuscular Volume 97.4 fl (80-94); Mean Platelet Volume 10.5 fl (7.4-10.4); Monocytes # 1.5 K/mm3 (0.1-1.0); Neutrophils # 10.7 K/mm3 (1.8-7.8); Neutrophils % 72.2 % (37.0-80.0); Platelet Count 226 K/mm3 (142-424); Red Blood Count 4.71 M/mm3 (4.60-6.20); Red Cell Distribution Width 13.5 % (11.5-17.5); White Blood Count 14.8 K/mm3 (4.8-10.8)
--- NOTE | 2021-09-17 23:23 | HMH.EDSOB ---
ED Disposition Clinical Impression: CHF (congestive heart failure) Disposition: Admitted As Inpatient Condition on Discharge: Good Time of Disposition: 03:30 - Critical Care Critical Care Time: Yes Attestation: On , the high probability of a clinically significant, sudden or life threatening deterioration of the following system(s) required my full and direct attention, intervention and personal management. The time I documented below is in addition to time spent performing reported procedures but includes the following listed in this critical care notation. Total Critical Care Time: 30 Vital system(s) involved:: Circulatory Failure, Respiratory Failure My critical care processes included: Assessment & monitoring of V/S, Initial and Re-exams, Data Review/Interpretation, Coordinating Care Medical Decision Making - Medical Records Medical records reviewed: Yes: I reviewed the patient's medical records. - Dandy Inquiry Pt receiving controlled substance: No Vital Signs: 09/17/21 22:38 09/18/21 00:04 09/18/21 00:58 Temperature 98.7 F Temperature Source Oral Pulse Rate 91 H Pulse Rate [Left] 112 H Respiratory Rate 22 16 Blood Pressure 125/71 Blood Pressure [Right Arm] 136/84 Blood Pressure Mean [Right Arm] 101 02 Sat by Pulse Oximetry 85 L 100 90 L Oxygen Delivery Method Room Air Nasal Cannula Nasal Cannula Oxygen Flow Rate (LPM) 6 6 09/18/21 02:49 Temperature 98.1 F Temperature Source Pulse Rate 98 H Pulse Rate [Left] Respiratory Rate 20 Blood Pressure 127/93 H Blood Pressure [Right Arm] Blood Pressure Mean [Right Arm] 02 Sat by Pulse Oximetry Oxygen Delivery Method Nasal Cannula Oxygen Flow Rate (LPM) 6 - Lab Data Lab results reviewed: Yes: I reviewed the patient's lab results. Lab Results 09/17/21 23:03: Specimen Source Right radial, O2 % 6lpm, ABG pH 7.46 H, ABG pCO2 27.7 L, ABG pO2 53.4 L, ABG HCO3 19.2 L, ABG Total CO2 20.1 L, ABG O2 Saturation 90, ABG Base Excess -4.6 L, Nasir Test Acceptable 09/17/21 23:05: WBC 14.8 H, RBC 4.71, Hgb 15.2, Hct 45.9, MCV 97.4 H, MCH 32.3 H, MCHC 33.2, RDW 13.5, Plt Count 226, MPV 10.5 H, Neut % (Auto) 72.2, Lymph % (Auto) 17.2, [place] % (Auto) 10.0 H, Eos % (Auto) 0.1, Baso % (Auto) 0.4, Neut # (Auto) 10.7 H, Lymph # (Auto) 2.5, [place] # (Auto) 1.5 H, Eos # (Auto) 0.0, Baso # (Auto) 0.1 09/17/21 23:05: Sodium 121 L, Potassium 3.6, Chloride 89 L, Carbon Dioxide 23, Anion Gap 12.6, BUN 15, Creatinine 1.00, Estimated Creat Clear 55, Estimated GFR 72, Est GFR ( Amer) 87, Glucose 141 H, Calcium 9.0, Total Bilirubin 2.2 H, AST 60 H, ALT 36, Alkaline Phosphatase 92, Troponin I < 0.01, Total Protein 7.4, Albumin 4.1, Globulin 3.3 H, Albumin/Globulin Ratio 1.2 09/17/21 23:05: D-Dimer 0.53 H 09/18/21 02:04: SARS-CoV-2 (PCR) Not detected, Influenza A Untype (PCR) Not detected, Influenza Type B (PCR) Not detected Result diagrams: 09/17/21 23:05 09/17/21 23:05 Orders (Tests/Meds): ED MEDICATIONS Generic Name Dose Route Start Last Admin Trade Name Freq PRN Reason Stop Dose Admin Acetaminophen 650 mg 09/18/21 03:16 Acetaminophen 325mg Tab PO 10/18/21 03:15 Q4HP PRN Fever or Mild Pain Lactated Ringer's 1,000 mls @ 50 mls/hr 09/18/21 03:16 Lactated Ringer's 1000 Ml Bag IV 10/18/21 03:15 .Q20H DAVID Ibuprofen 400 mg 09/18/21 03:16 Ibuprofen 400 Mg Tablet PO 10/18/21 03:15 Q6HP PRN Mild Pain Discontinued Medications Generic Name Dose Route Start Last Admin Trade Name Freq PRN Reason Stop Dose Admin Albuterol/Ipratropium 3 ml 09/17/21 23:03 09/17/21 23:39 Ipratropium/Albuterol 3 Ml Neb IH 09/17/21 23:04 3 ml ONCE ONE Administration Dexamethasone Sodium Phosphate 10 mg 09/17/21 23:03 09/17/21 23:48 Dexamethasone 4mg/Ml 1ml Vial IV 09/17/21 23:04 10 mg ONCE ONE Administration ORDERS Category Date Time Status Complete Blood Count Auto Diff Routine Lab 09/18/21 06:00 Order
[2021-09-17 23:34] LABS: ABG Base Excess -4.6 mmol/L (-2.4-2.3); ABG HCO3 19.2 mmhg (22.0-26.0); ABG Oxygen Saturation 90 % (90-100); ABG PCO2 27.7 mmhg (35.0-45.0); ABG PH 7.46 mmol/L (7.35-7.45); ABG PO2 53.4 mmhg (80-100); ABG TCO2 20.1 mmhg (23-27)
[2021-09-17 23:35] LABS: Alanine Aminotransferase 36 U/L (12-78); Albumin Level 4.1 g/dl (3.5-5.0); Albumin/Globulin Ratio 1.2 (1.1-1.8); Alkaline Phosphatase 92 U/L (38-126); Anion Gap 12.6 mEq/L (5-15); Aspartate Amino Transferase 60 U/L (17-59); Bilirubin,Total 2.2 mg/dl (0.2-1.3); Blood Urea Nitrogen 15 mg/dl (9-20); Carbon Dioxide 23 mmol/L (22.0-30.0); Chloride 89 mmol/L (98-107); Creatinine Clearance Estimated 55 mL/min (50-200); Estimated Glomerular Filt Rate 72 ml/min (>60); GFR (African American) 87 ML/MIN (>60); Globulin 3.3 g/dL (1.3-3.2); Glucose 141 mg/dl (74-100); Potassium 3.6 mmoL/L (3.5-5.1); Sodium 121 mmol/L (136-145); Total Protein,Serum 7.4 g/dl (6.3-8.2)
[2021-09-17 23:36] LABS: Allen's Test Acceptable; Source Right Radial
[2021-09-17 23:37] LABS: Oxygen 6LPM %
[2021-09-17 23:39] LABS: D-Dimer 0.53 ug/mL (0.0-0.5)
[2021-09-17 23:51] LABS: Troponin I < 0.01 ng/ml (0.00-0.034)
[2021-09-18] VITALS (9 sets, daily range): BP systolic 106–138; BP diastolic 66–93; PULSE 87–98; RESP 16–21; TEMP 36.4–37.1; O2SAT 90–100; BMI 20.5; BMI 20.2
--- NOTE | 2021-09-18 00:20 | PC.NURSE ---
Dr. Jonel hudson, covering for Dr. Eli
--- NOTE | 2021-09-18 01:18 | PC.NURSE ---
Dr. Jolly paged re admission
--- NOTE | 2021-09-18 01:22 | PC.NURSE ---
speaking with at this time in regards to admission.
[2021-09-18 02:17] LABS: Coronavirus 19, PCR Not Detected (NotDetected); Influenza A, PCR Not Detected (NotDetected); Influenza B, PCR Not Detected (NotDetected)
--- NOTE | 2021-09-18 03:07 | PC.NURSE ---
patient up to floor via wheelchair @ this time
--- NOTE | 2021-09-18 06:42 | PC.NURSE ---
Patient had gotten up to use the urinal and became short of breath. Patient was placed on 50% venti. 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 New orders where received. Patient has since been placed back on 6LNC at patient's request.
[2021-09-18 06:54] LABS: Basophils # 0.1 K/mm3 (0-0.2); Basophils % 0.3 % (0.1-2.0); Eosinophils % 0.2 % (0.1-12.0); Hematocrit 43.6 % (42.0-52.0); Hemoglobin 14.1 g/dL (14.1-18.0); Lymphocytes # 0.7 K/mm3 (0.7-4.5); Lymphocytes % 5.3 % (10-50); Mean Corpuscular HGB Conc 32.4 g/dL (31.8-35.4); Mean Corpuscular Hemoglobin 32.2 pg (27.0-31.2); Mean Corpuscular Volume 99.3 fl (80-94); Mean Platelet Volume 11.1 fl (7.4-10.4); Monocytes # 0.7 K/mm3 (0.1-1.0); Monocytes % 5.2 % (1.7-9.3); Neutrophils # 11.5 K/mm3 (1.8-7.8); Platelet Count 223 K/mm3 (142-424); Red Blood Count 4.38 M/mm3 (4.60-6.20); Red Cell Distribution Width 13.6 % (11.5-17.5)
[2021-09-18 06:59] LABS: Chloride 89 mmol/L (98-107); Potassium 3.7 mmoL/L (3.5-5.1); Sodium 122 mmol/L (136-145)
[2021-09-18 07:02] LABS: Alanine Aminotransferase 31 U/L (12-78); Albumin Level 3.8 g/dl (3.5-5.0); Albumin/Globulin Ratio 1.2 (1.1-1.8); Alkaline Phosphatase 74 U/L (38-126); Anion Gap 11.7 mEq/L (5-15); Aspartate Amino Transferase 50 U/L (17-59); Bilirubin,Total 1.9 mg/dl (0.2-1.3); Blood Urea Nitrogen 15 mg/dl (9-20); Carbon Dioxide 25 mmol/L (22.0-30.0); Creatinine Clearance Estimated 55 mL/min (50-200); Estimated Glomerular Filt Rate 71 ml/min (>60); GFR (African American) 86 ML/MIN (>60); Globulin 3.2 g/dL (1.3-3.2)
[2021-09-18 07:03] LABS: Calcium 8.5 mg/dl (8.4-10.2); Glucose 146 mg/dl (74-100)
[2021-09-18 07:38] LABS: MANUAL DIFFERENTIAL MANUAL DIFFERENTIAL (MANUAL DIFF)
--- NOTE | 2021-09-18 07:41 | HMH.HP ---
*Admission Date: 09/18/21 *Chief complaint: Shortness of breath *History of present illness: 81-year-old male with ischemic cardiomyopathy and severe mitral regurgitation presented to the emergency department with increasing shortness of breath and chest pain for the last 5 to 6 days. I had seen the patient in the office on September 16 for similar symptoms and felt like the patient was getting fluid overloaded. Patient had been using his Lasix on an as-needed basis and began scheduled oral furosemide. Patient awoke overnight feeling acutely short of breath with chest pressure and presented to the emergency department. Patient's exam, x-ray, lab findings were consistent with acute congestive heart failure. Patient was given IV Lasix and admitted for additional diuresis and observation. Patient was hypoxic on presentation with O2 sat of 88% which corrected with application of nasal cannula up to 6 L/min. Patient has long history of atrial flutter/fibrillation and is status post biventricular pacer. Last documented ejection fraction was 30% in May 2020 [facility] History I have reviewed the patient's past medical history: Yes Medical History: Reports:: Atrial Fibrillation, Congestive Heart Failure, Hyperlipidemia, Hypertension, Internal Pacemaker Denies:: Cancer, Diabetes Mellitus Type 1, Diabetes Mellitus Type 2, MRSA *Have you ever received a pneumonia vaccine?: Yes *Have you received a flu vaccine this season?: Yes Other Medical History: Reports: Arthritis, Hypothyroidism, Thyroid Disease Laterality Cases: Left: Total Hip Replacement, Bilateral: Tonsillectomy Other Surgeries: Yes: Cardiac Surgery, Colonoscopy, Pacemaker, Splenectomy Amputation: No Fractures: No - *Social History Last grade of school completed: High school graduate Smoking Status: Former smoker Tobacco Type: cigarettes #Yrs smoked (if former smoker): 10 Alcohol Intake: never Substance Use Type: denies use *Occupational Status:: retired Housing: house Household Members: spouse *Travel in the last 8 weeks: None Family Hx:: Coronary Artery Disease, Heart Attack, Hyperlipidemia, Hypertension Review of Systems - Review of Systems Review of systems:: pertinent systems reviewed and negative unless documented below Meds Home Medications Medication Instructions Recorded Confirmed Type Amiodarone HCl 200 mg PO DAILY 06/14/18 09/18/21 History Pravastatin Sodium [Pravachol 40mg 20 mg PO HS 06/14/18 09/18/21 History Tablet] levothyroxine 50 mcg tablet 50 mcg PO DAILY tab 09/01/19 09/18/21 History tamsulosin 0.4 mg capsule 0.4 mg PO HS 09/01/19 09/18/21 History Furosemide [Lasix 20mg tablet] 20 mg PO DAILY 10/02/19 09/18/21 History Iron [Iron 18mg Tab] 65 mg PO HS 10/02/19 09/18/21 History Apixaban [Eliquis] 5 mg PO BID 09/18/21 09/18/21 History Ascorbic Acid 500 mg PO DAILY 09/18/21 09/18/21 History Cholecalciferol (Vitamin D3) 1,000 unit PO DAILY 09/18/21 09/18/21 History [Vitamin D3 1,000 Unit Cap] Cholecalciferol (Vitamin D3) 50 mcg PO HS 09/18/21 09/18/21 History [Vitamin D3] Temazepam [Restoril] 15 mg PO NEEDED PRN 09/18/21 09/18/21 History carvediloL [Carvedilol 3.125mg Tab] 3.125 mg PO BID 09/18/21 09/18/21 History Allergies Allergy/AdvReac Type Severity Reaction Status Date / Time No Known Allergies Allergy Verified 10/02/19 15:22 Exam Vital signs and Labs for Last 24 Hours: Temp Pulse Resp BP Pulse Ox 98.5 F 95 H 21 138/84 91 L 09/18/21 03:24 09/18/21 03:24 09/18/21 03:40 09/18/21 03:24 09/18/21 03:40 Laboratory Results - last 24 hr 09/17/21 23:03: Specimen Source Right radial, O2 % 6lpm, ABG pH 7.46 H, ABG pCO2 27.7 L, ABG pO2 53.4 L, ABG HCO3 19.2 L, ABG Total CO2 20.1 L, ABG O2 Saturation 90, ABG Base Excess -4.6 L, Nasir Test Acceptable 09/17/21 23:05: WBC 14.8 H, RBC 4.71, Hgb 15.2, Hct 45.9, MCV 97.4 H, MCH 32.3 H, MCHC 33.2, RDW 13.5, Plt Count 226, MPV 10.5 H, Neut % (Auto) 72.2, Lymph % (Auto) 17.2, [place] % (Aut
--- NOTE | 2021-09-18 07:47 | P.CONPHA_ITS ---
[facility] Pharmacy VTE Monitoring - Patient Demographics Admission date: 09/18/21 Report Date: 09/18/21 Time: 07:47 Allergies/Adverse Reactions: Patient Allergies No Known Allergies Allergy (Verified 10/02/19 15:22) Height: 1.83 m Weight: 68.946 kg Patient Problems: Current Active Problems Severe mitral regurgitation (Acute) CHF (congestive heart failure) (Acute) Acute systolic (congestive) heart failure (Acute) Ischemic cardiomyopathy (Acute) - VTE Risk Labs: VTE Related Lab Results Hgb 14.1 g/dL (14.1-18.0) 09/18/21 06:40 Hct 43.6 % (42.0-52.0) 09/18/21 06:40 Plt Count 223 K/mm3 (142-424) 09/18/21 06:40 BUN 15 mg/dl (9-20) 09/18/21 06:40 Creatinine 1.00 mg/dl (0.66-1.25) 09/18/21 06:40 Estimated Creat Clear 55 mL/min (50-200) 09/18/21 06:40 Was VTE Risk Assessment Performed: Yes VTE Score: 6 VTE Risk Level: Moderate Risk Clinical Trial Participant: No - Prophylaxis VTE Prophylaxis Ordered?: Yes Types of VTE Prophylaxis: TEDS Knee High, Pharmacological Pharmacologic Type: Other (ELIQUIS)
[2021-09-18 13:40] LABS: Anisocytosis 1+; Giant Platelets 1+; Lymphocytes % 8 % (10-50); Monocytes % 3 % (2-9); Neutrophils % 89 % (42-76); Platelet Estimate Normal; Total Cells Counted 100
--- NOTE | 2021-09-18 14:38 | PC.NURSE ---
aox4, able to make needs known to staff. has used urinal independently for elimination. continue on 6lnc with fine crackle in bilat bases on auscultation. abd is soft and non-tender with active bs x4. appetite has been good. no c/o n/v/d. he has denied chest pain/pressure and stated that he does not feel sob with o2 in use. HR has been regular.
[2021-09-19] VITALS: BP 129/66; PULSE 66; RESP 16; TEMP 36.7; O2SAT 94
[2021-09-19 03:46] VITALS: BP 113/60; PULSE 80; RESP 18; TEMP 36.7; O2SAT 91
[2021-09-19 05:17] VITALS: BMI 20.2
[2021-09-19 07:04] LABS: Basophils % 0.1 % (0.1-2.0); Eosinophils % 0.1 % (0.1-12.0); Hemoglobin 13.3 g/dL (14.1-18.0); Lymphocytes # 1.7 K/mm3 (0.7-4.5); Lymphocytes % 9.5 % (10-50); Mean Corpuscular HGB Conc 32.5 g/dL (31.8-35.4); Mean Corpuscular Volume 98.6 fl (80-94); Mean Platelet Volume 10.6 fl (7.4-10.4); Monocytes # 1.7 K/mm3 (0.1-1.0); Monocytes % 9.8 % (1.7-9.3); Neutrophils % 80.5 % (37.0-80.0); Platelet Count 250 K/mm3 (142-424); Red Blood Count 4.16 M/mm3 (4.60-6.20); Red Cell Distribution Width 13.7 % (11.5-17.5); White Blood Count 17.4 K/mm3 (4.8-10.8)
[2021-09-19 07:05] LABS: Chloride 93 mmol/L (98-107)
[2021-09-19 07:06] LABS: Potassium 3.1 mmoL/L (3.5-5.1); Sodium 125 mmol/L (136-145)
[2021-09-19 07:08] LABS: Blood Urea Nitrogen 19 mg/dl (9-20); Creatinine Clearance Estimated 54 mL/min (50-200); Estimated Glomerular Filt Rate 81 ml/min (>60); GFR (African American) 98 ML/MIN (>60)
[2021-09-19 07:09] LABS: Anion Gap 6.1 mEq/L (5-15); Calcium 8.4 mg/dl (8.4-10.2); Carbon Dioxide 29 mmol/L (22.0-30.0); Glucose 110 mg/dl (74-100)
[2021-09-19 07:34] LABS: MANUAL DIFFERENTIAL MANUAL DIFFERENTIAL (MANUAL DIFF)
[2021-09-19 08:00] VITALS: BP 110/67; PULSE 96; RESP 21; TEMP 36.4; O2SAT 92
--- NOTE | 2021-09-19 08:02 | XR_ITS ---
FINAL REPORT CLINICAL HISTORY: persistent hypoxia, chf, rising wbc COMPARISON: 07/17/2022 FINDINGS: TWO VIEWS OF THE CHEST There is cardiomegaly. Left subclavian ICD is present. Pulmonary vascular congestion persists. The mediastinum is unremarkable. There are bilateral pulmonary opacities, favor edema over pneumonia, partially improved. There is improved bibasilar atelectasis. Persistent small pleural effusions are noted. There is no pneumothorax. IMPRESSION: Partially improved pulmonary opacities, favor edema over pneumonia. Improved bibasilar atelectasis with persistent small effusions. Reviewed, Interpreted and Dictated by Cong Lim III, MD Transcribed by Shira Booker Authenticated by Cong Lim III, MD on 09/19/2021 10:16:[address] [facility]
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
[2021-09-19 09:03] LABS: Lymphocytes % 9 % (10-50); Monocytes % 8 % (2-9); Neutrophils % 82 % (42-76); Total Cells Counted 100
[2021-09-19 09:04] LABS: Platelet Estimate Normal
[2021-09-19 09:05] LABS: Acanthocytes 1+
[2021-09-19 16:00] VITALS: BP 111/60; PULSE 96; RESP 20; TEMP 36.6; O2SAT 93
[2021-09-19 20:00] VITALS: RESP 22; O2SAT 90
--- NOTE | 2021-09-19 21:59 | ECG_ITS ---
APPROVED REPORT Exam: Resting ECG HR:113 bpm ECG Measurements Heart Rate 113 AXES [place] 170 P 170 QRSd 140 QRS -58 QT 288 T 95 QTc 355 Conclusion ELECTRONIC VENTRICULAR PACEMAKER ABNORMAL RHYTHM ECG UNCONFIRMED REPORT Electronically signed by : Dwayne Wheeler MD 09/20/2021 09:37:27
[2021-09-19 22:52] LABS: Microscopic, Urine URINE MICROSCOPIC (MICROSCOPIC)
[2021-09-19 22:53] LABS: Appearance,Urine CLEAR (Clear); Bilirubin,Urine Negative (Negative); Blood, Urine Negative (Negative); Color,Urine STRAW (Yellow); Glucose,Urine (UA) Negative (Negative); Ketones,Urine Negative (Negative); Leukocyte Esterase,Urine Negative (Negative); Nitrate,Urine Negative (Negative); Protein,Urine Negative (Negative); Specific Gravity, Urine 1.015 (1.005-1.030); Urobilinogen,Urine 0.2 EU/dl (0.2)
[2021-09-19 23:00] LABS: Bacteria,Urine Trace /lpf; Mucus,Urine 2+ /lpf; Squamous Epithelial Cell,Urine Occasional #/hpf (0-5)
--- NOTE | 2021-09-20 00:29 | PC.NURSE ---
2229 pt noted to be soa with exertion and o2 sats 82% on 02 at 6L pnc, pt placed on high flow per respiratory therapy at 8L, pt then complained of chest discomfort, ekg was obtained and taken to ER physician to be read, ekg showed vent rat 113, paced; noted no UOP documented from 8am to 6pm with only 480 noted after 160mg of lasix given during day, dr cardenas called with pt status of 02 sats 86% on high flow o2 at 8L, ekg results and bun and creatinine results reviewed, informed dr cardenas of lasix dose given today and uop documented, dr cardenas also noted of bilateral bases with crackles and crackles noted throughout. pt soa and anxious. note orders received to anchor glover overnight and give bumex 2mg iv x1 dose repeated and verified.
[2021-09-20 04:00] VITALS: BP 109/59; PULSE 80; RESP 22; TEMP 36.8; O2SAT 91
[2021-09-20 04:56] VITALS: BMI 20.5
[2021-09-20 06:48] LABS: Basophils # 0.1 K/mm3 (0-0.2); Basophils % 0.4 % (0.1-2.0); Chloride 92 mmol/L (98-107); Eosinophils % 0.3 % (0.1-12.0); Hematocrit 43.8 % (42.0-52.0); Hemoglobin 14.3 g/dL (14.1-18.0); Mean Corpuscular HGB Conc 32.6 g/dL (31.8-35.4); Mean Corpuscular Hemoglobin 31.8 pg (27.0-31.2); Mean Corpuscular Volume 97.4 fl (80-94); Mean Platelet Volume 9.5 fl (7.4-10.4); Monocytes # 1.3 K/mm3 (0.1-1.0); Monocytes % 10.1 % (1.7-9.3); Neutrophils # 9.3 K/mm3 (1.8-7.8); Neutrophils % 73.2 % (37.0-80.0); Platelet Count 268 K/mm3 (142-424); Red Cell Distribution Width 13.6 % (11.5-17.5); Sodium 128 mmol/L (136-145); White Blood Count 12.7 K/mm3 (4.8-10.8)
[2021-09-20 06:51] LABS: Blood Urea Nitrogen 21 mg/dl (9-20); Creatinine Clearance Estimated 55 mL/min (50-200); Estimated Glomerular Filt Rate 71 ml/min (>60); GFR (African American) 86 ML/MIN (>60)
[2021-09-20 06:52] LABS: Anion Gap 6.8 mEq/L (5-15); Calcium 8.4 mg/dl (8.4-10.2); Carbon Dioxide 32 mmol/L (22.0-30.0); Glucose 109 mg/dl (74-100)
[2021-09-20 07:06] LABS: Potassium 2.8 mmoL/L (3.5-5.1)
[2021-09-20 07:46] VITALS: BP 126/70; PULSE 78; RESP 22; TEMP 36.6; O2SAT 90
[2021-09-20 08:00] VITALS: PULSE 78; O2SAT 90
--- NOTE | 2021-09-20 08:30 | XR_ITS ---
FINAL REPORT CLINICAL HISTORY: worsening hypoxia COMPARISON: September 19, 2021 FINDINGS: Two views of the chest were obtained. there is cardiomegaly. A left subclavian AICD is present. The mediastinum is normal. There is persistent pulmonary vascular congestion. There are persistent but partially improved pulmonary opacities which may represent edema or pneumonia. There are stable, small pleural effusions. There is no pneumothorax. The bony thorax is intact. IMPRESSION: Persistent but partially improved pulmonary opacities, may represent edema or pneumonia. Small pleural effusions, stable. Reviewed, Interpreted and Dictated by Cong Lim III, MD Transcribed by Hailey Garrido Authenticated by Cong Lim III, MD on 09/20/2021 09:29:09 AM [facility]
--- NOTE | 2021-09-20 08:31 | HMH.ACPN2 ---
Internal Medicine - PN: Subj *Date: 09/20/21 *Time: 08:31 Interval history: Patient had increasing shortness of breath with chest pain overnight requiring increase in flow rate of oxygen to 8 L/min. Patient was given IV Bumex 2 mg and is diuresed over a liter. Patient reports feeling better this morning. It is also been discovered that he was visited by someone in the hospital on Thursday who is since had a positive Covid test. Patient has not had any fevers. He is vaccinated against Covid. Exam Vital signs and Labs for Last 24 Hours: Temp Pulse Resp BP Pulse Ox 97.9 F 78 22 126/70 90 L 09/20/21 07:46 09/20/21 07:46 09/20/21 07:46 09/20/21 07:46 09/20/21 07:46 Laboratory Results - last 24 hr 09/19/21 05:51: Total Counted 100, Neutrophils % (Manual) 82 H, Band Neutrophils % 1.0, Lymphocytes % (Manual) 9 L, Monocytes % (Manual) 8, Platelet Estimate Normal, Acanthocytes (Spur) 1+ 09/19/21 22:44: Urine Color Straw, Urine Appearance Clear, Urine pH 5.0, Ur Specific [place] 1.015, Urine Protein Negative, Urine Glucose (UA) Negative, Urine Ketones Negative, Urine Blood Negative, Urine Nitrate Negative, Urine Bilirubin Negative, Urine Urobilinogen 0.2, Ur Leukocyte Esterase Negative, Ur Squamous Epith Cells Occasional, Urine Bacteria Trace, Urine Mucus 2+ 09/20/21 05:58: WBC 12.7 H D, RBC 4.50 L, Hgb 14.3, Hct 43.8, MCV 97.4 H, MCH 31.8 H, MCHC 32.6, RDW 13.6, Plt Count 268, MPV 9.5, Neut % (Auto) 73.2, Lymph % (Auto) 16.0, [place] % (Auto) 10.1 H, Eos % (Auto) 0.3, Baso % (Auto) 0.4, Neut # (Auto) 9.3 H, Lymph # (Auto) 2.0, [place] # (Auto) 1.3 H, Eos # (Auto) 0.0, Baso # (Auto) 0.1 09/20/21 05:58: Sodium 128 L, Potassium 2.8 L*, Chloride 92 L, Carbon Dioxide 32 H, Anion Gap 6.8, BUN 21 H, Creatinine 1.00, Estimated Creat Clear 55, Estimated GFR 71, Est GFR ( Amer) 86, Glucose 109 H, Calcium 8.4 I & O for Last 24 hours: Intake & Output 09/17/21 09/18/21 09/19/21 09/20/21 11:59 11:59 11:59 11:59 Intake Total 360 / 360 750 / 750 480 / 480 Output Total 450 / 450 1040 / 1040 2395 / 2395 Balance -90 / -90 -290 / -290 -1915 / -1915 Weight 149 lb 14.629 oz 149 lb 14.629 oz 151 lb 15.998 oz Narrative: Patient looks comfortable. Lungs have some left basilar crackles but are otherwise clear this morning. Heart rate is irregular. Abdomen is soft. Lower extremities have no edema. Chest x-ray from yesterday had showed improvement in CHF. White blood cell count is down this morning Assessment and Plan (1) Acute systolic (congestive) heart failure Status: Acute Category: Medical Code(s): I50.21 - Acute systolic (congestive) heart failure (2) Ischemic cardiomyopathy Status: Chronic Category: Medical Code(s): I25.5 - Ischemic cardiomyopathy (3) Severe mitral regurgitation Status: Acute Category: Medical Code(s): I34.0 - Nonrheumatic mitral (valve) insufficiency (4) Hyponatremia Status: Acute Category: Medical Code(s): E87.1 - Hypo-osmolality and hyponatremia (5) Leukocytosis Status: Acute Category: Medical Code(s): D72.829 - Elevated white blood cell count, unspecified - Assessment and plan all Dx Assessment and Plan for all problems:: 1. Continue twice daily Lasix 2. Patient is become hypokalemic and will require oral and IV replacement 3. Repeat chest x-ray 4. Covid PCR test today
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
[2021-09-20 10:41] LABS: Coronavirus 19, PCR Not Detected (NotDetected); Influenza A, PCR Not Detected (NotDetected); Influenza B, PCR Not Detected (NotDetected)
--- NOTE | 2021-09-20 13:50 | DIET.NUTRFU ---
Pt with recent COVID exposure and being tested per MD progress note. Pt eating 50% at most meals on low sodium diet. Will continue to monitor and supplement diet if beneficial.
--- NOTE | 2021-09-20 14:40 | PC.NURSE ---
[address] Eli that pt glover had been leaking. Additional 6ml of water added to balloon, catheter still noted to be leaking. Per Dr Eli, ok to DC catheter at this time. pt is agreeable. Glover removed at 1430. pt tolerated well. pt voided 10ml following removal.
[2021-09-20 15:53] VITALS: BP 90/36; PULSE 89; RESP 18; TEMP 36.2; O2SAT 96
--- NOTE | 2021-09-20 18:44 | PC.NURSE ---
Pt has been up to the chair for most of the shift with his present at bedside. his glover catheter was noted to be leaking at the beginning of the shift. more saline was added to the balloon, this decreased some of the overflow urine but not all. Dr Eli was contacted and in order to avoid further trauma to the prostate with insertion of a new catheter, the glover was discontinued. pt was informed that if he has not voided by 12 hours after removal, that a new catheter may have to be inserted. pt lung sounds contain crackles in left base. pt appears easily winded. pt is very pleasant to converse with. states the he feels much weaker than upon admission, and that is why he was up to the chair for most of the shift.
[2021-09-20 19:23] VITALS: BP 102/57; PULSE 84; RESP 22; TEMP 36.7; O2SAT 93
[2021-09-20 20:00] VITALS: O2SAT 93
[2021-09-21 04:00] VITALS: BP 102/56; PULSE 76; RESP 18; TEMP 36.8; O2SAT 91
[2021-09-21 04:58] VITALS: BMI 19.5
--- NOTE | 2021-09-21 05:27 | PC.NURSE ---
No acute changes. Pt continues to receive O2 via HF nc 8 LMP, tolerating well with sats >90%. No complaints voiced to staff. Call dsouza within reach.
[2021-09-21 06:24] LABS: Chloride 96 mmol/L (98-107); Potassium 3.7 mmoL/L (3.5-5.1); Sodium 130 mmol/L (136-145)
[2021-09-21 06:27] LABS: Anion Gap 6.7 mEq/L (5-15); Blood Urea Nitrogen 25 mg/dl (9-20); Carbon Dioxide 31 mmol/L (22.0-30.0); Creatinine Clearance Estimated 52 mL/min (50-200); Estimated Glomerular Filt Rate 81 ml/min (>60); GFR (African American) 98 ML/MIN (>60)
[2021-09-21 06:28] LABS: Calcium 8.4 mg/dl (8.4-10.2); Glucose 104 mg/dl (74-100)
[2021-09-21 06:55] LABS: Basophils # 0.1 K/mm3 (0-0.2); Basophils % 0.5 % (0.1-2.0); Eosinophils # 0.1 K/mm3 (0.0-0.4); Eosinophils % 0.8 % (0.1-12.0); Hematocrit 43.3 % (42.0-52.0); Lymphocytes # 2.5 K/mm3 (0.7-4.5); Lymphocytes % 22.1 % (10-50); Mean Corpuscular HGB Conc 32.3 g/dL (31.8-35.4); Mean Corpuscular Hemoglobin 31.8 pg (27.0-31.2); Mean Corpuscular Volume 98.7 fl (80-94); Mean Platelet Volume 10.8 fl (7.4-10.4); Monocytes # 1.3 K/mm3 (0.1-1.0); Neutrophils # 7.4 K/mm3 (1.8-7.8); Neutrophils % 65.6 % (37.0-80.0); Platelet Count 257 K/mm3 (142-424); Red Blood Count 4.39 M/mm3 (4.60-6.20); Red Cell Distribution Width 13.4 % (11.5-17.5); White Blood Count 11.3 K/mm3 (4.8-10.8)
[2021-09-21 07:43] VITALS: BP 112/67; PULSE 83; RESP 18; TEMP 35.7; O2SAT 94
[2021-09-21 08:00] VITALS: PULSE 83; O2SAT 94
--- NOTE | 2021-09-21 08:36 | HMH.ACPN2 ---
Internal Medicine - PN: Subj *Date: 09/21/21 *Time: 08:36 Interval history: No acute events. Patient continues to have modest response to IV Lasix. He reports improvement in shortness of breath at rest and with exertion. Currently he is on nasal cannula at 8 L/min maintaining sats in the low 90s Exam Vital signs and Labs for Last 24 Hours: Temp Pulse Resp BP Pulse Ox 96.3 F L 83 18 112/67 94 L 09/21/21 07:43 09/21/21 07:43 09/21/21 07:43 09/21/21 07:43 09/21/21 07:43 Laboratory Results - last 24 hr 09/20/21 09:45: SARS-CoV-2 (PCR) Not detected, Influenza A Untype (PCR) Not detected, Influenza Type B (PCR) Not detected 09/21/21 06:00: WBC 11.3 H, RBC 4.39 L, Hgb 14.0 L, Hct 43.3, MCV 98.7 H, MCH 31.8 H, MCHC 32.3, RDW 13.4, Plt Count 257, MPV 10.8 H, Neut % (Auto) 65.6, Lymph % (Auto) 22.1, [place] % (Auto) 11.0 H, Eos % (Auto) 0.8, Baso % (Auto) 0.5, Neut # (Auto) 7.4, Lymph # (Auto) 2.5, [place] # (Auto) 1.3 H, Eos # (Auto) 0.1, Baso # (Auto) 0.1 09/21/21 06:00: Sodium 130 L, Potassium 3.7 D, Chloride 96 L, Carbon Dioxide 31 H, Anion Gap 6.7, BUN 25 H, Creatinine 0.90, Estimated Creat Clear 52, Estimated GFR 81, Est GFR ( Amer) 98, Glucose 104 H, Calcium 8.4 I & O for Last 24 hours: Intake & Output 09/18/21 09/19/21 09/20/21 09/21/21 11:59 11:59 11:59 11:59 Intake Total 360 / 360 750 / 750 600 / 600 480 / 480 Output Total 450 / 450 1040 / 1040 2395 / 2395 1770 / 1770 Balance -90 / -90 -290 / -290 -1795 / -1795 -1290 / -1290 Weight 149 lb 14.629 oz 149 lb 14.629 oz 151 lb 15.998 oz 144 lb - Constitutional no acute distress - *Routine Respiratory Exam Present: CTA bilaterally - *Routine Cardiovascular Exam Present: RRR Assessment and Plan (1) Acute systolic (congestive) heart failure Status: Acute Category: Medical Code(s): I50.21 - Acute systolic (congestive) heart failure (2) Ischemic cardiomyopathy Status: Chronic Category: Medical Code(s): I25.5 - Ischemic cardiomyopathy (3) Severe mitral regurgitation Status: Acute Category: Medical Code(s): I34.0 - Nonrheumatic mitral (valve) insufficiency (4) Hyponatremia Status: Acute Category: Medical Code(s): E87.1 - Hypo-osmolality and hyponatremia (5) Leukocytosis Status: Acute Category: Medical Code(s): D72.829 - Elevated white blood cell count, unspecified - Assessment and plan all Dx Assessment and Plan for all problems:: 1. Patient be given Bumex today as an alternative to the Lasix. Continue to closely monitor I's and O's 2. Wean oxygen with goal sats greater than 90%
[2021-09-21 16:00] VITALS: BP 115/61; PULSE 83; RESP 18; TEMP 36.1; O2SAT 95
--- NOTE | 2021-09-21 17:08 | PC.NURSE ---
1707-pt sitting up in bed a this time watching tv, pt has denied any distress t/o day, pt's O2 titrated down to 3L/NC high flow and has tolerated well with O2 sats maintaining above 90%, pt up and walking in room without difficulty, pt reports he had BM today per toilet and pt has voided well to urinal t/o day, urine noted to be dark yellow/clear in color, edema improving to kailash feet, ls cta, vss, will continue to monitor, pt stable
[2021-09-21 20:00] VITALS: BP 110/66; PULSE 83; RESP 18; TEMP 36.7; O2SAT 92
[2021-09-22 04:00] VITALS: BP 108/68; PULSE 75; RESP 18; TEMP 36.7; O2SAT 92
--- NOTE | 2021-09-22 04:58 | PC.NURSE ---
Pt rested well this shift. Pt remains on 3L NC with O2 sats 90-93%. Pt voiced no c/o of pain or SOA t/o shift. Pt has used urinal independently with 500ML output thus far in shift. Pt is able to make needs known to staff.
[2021-09-22 05:00] VITALS: BMI 19.0
[2021-09-22 08:00] VITALS: BP 114/64; PULSE 90; RESP 18; TEMP 36.4; O2SAT 93; O2SAT 94
--- NOTE | 2021-09-22 08:45 | HMH.DCSUM ---
General - General Admission date:: 09/18/21 Discharge date: 09/22/21 HPI HPI: 81-year-old male with ischemic cardiomyopathy and severe mitral regurgitation presented to the emergency department with increasing shortness of breath and chest pain for the last 5 to 6 days. I had seen the patient in the office on September 16 for similar symptoms and felt like the patient was getting fluid overloaded. Patient had been using his Lasix on an as-needed basis and began scheduled oral furosemide. Patient awoke overnight feeling acutely short of breath with chest pressure and presented to the emergency department. Patient's exam, x-ray, lab findings were consistent with acute congestive heart failure. Patient was given IV Lasix and admitted for additional diuresis and observation. Patient was hypoxic on presentation with O2 sat of 88% which corrected with application of nasal cannula up to 6 L/min. Patient has long history of atrial flutter/fibrillation and is status post biventricular pacer. Last documented ejection fraction was 30% in May 2020 Hospital Course Hospital Course: Patient was admitted for acute systolic congestive heart failure with increasing oxygen requirement. Patient initially required 6 L/min via nasal cannula. Patient was diuresed with Lasix 40 mg twice daily which provided mild response. Lasix was increased to 80 mg twice daily with modest response. Patient had an episode of PND and orthopnea on the fourth and was administered Bumex 2 mg IV and had very good response to the Bumex. This was continued the remainder of hospitalization. Patient's weight decreased from 1 49-1 42 on the day of discharge. Patient's shortness of breath both at rest and with exertion improved. However on the day of discharge patient continued to have an oxygen requirement with a room air resting O2 sat of 88%. Patient will require supplemental oxygen at discharge. This was arranged prior to discharge. Patient was instructed to begin taking his Lasix daily at home. Patient will follow up in my office on September 25 Objective Vital signs: Temp Pulse Resp BP Pulse Ox 98.1 F 75 18 108/68 L 92 L 09/22/21 04:00 09/22/21 04:00 09/22/21 04:00 09/22/21 04:00 09/22/21 04:00 no acute distress - *Routine Respiratory Exam Present: CTA bilaterally - *Routine Cardiovascular Exam Present: RRR - *Routine Extremities Exam Present: edema DS: Diagnosis - Discharge Diagnosis (1) Acute systolic (congestive) heart failure Status: Acute (2) Ischemic cardiomyopathy Status: Chronic (3) Severe mitral regurgitation Status: Acute (4) Hyponatremia Status: Acute (5) Leukocytosis Status: Acute Discharge Plan - Patient Discharge Instructions Patient Instructions: Mitral Regurgitation, DI for Heart Failure - Follow up Plan Follow up with: Dwayne Eli MD [Staff Physician] - 09/25/21 Disposition: Home, Self-Care Condition at discharge:: Improved Home Medications: Home Medications Medication Instructions Recorded Confirmed Type Amiodarone HCl 200 mg PO DAILY 06/14/18 09/18/21 History Pravastatin Sodium [Pravachol 40mg 40 mg PO HS 06/14/18 09/18/21 History Tablet] levothyroxine 50 mcg tablet 50 mcg PO DAILYDM tab 09/01/19 09/18/21 History tamsulosin 0.4 mg capsule 0.4 mg PO HS 09/01/19 09/18/21 History Furosemide [Lasix 20mg tablet] 20 mg PO PM 10/02/19 09/18/21 History Iron [Iron 18mg Tab] 65 mg PO HS 10/02/19 09/18/21 History Apixaban [Eliquis] 5 mg PO BID 09/18/21 09/18/21 History Ascorbic Acid 500 mg PO DAILY 09/18/21 09/18/21 History Cholecalciferol (Vitamin D3) 1,000 unit PO DAILY 09/18/21 09/18/21 History [Vitamin D3 1,000 Unit Cap] Cholecalciferol (Vitamin D3) 50 mcg PO HS 09/18/21 09/18/21 History [Vitamin D3] Temazepam [Restoril] 15 mg PO HSP PRN 09/18/21 09/18/21 History carvediloL [Carvedilol 3.125mg Tab] 3.125 mg PO BID 09/18/21 09/18/21 History Furo
--- NOTE | 2021-09-23 10:08 | CARE MANAGER ---
RA prior to patient being discharged was 86%. Darryl RN, BSN
== END 2021-09-22 13:05 | disposition home or self-care (01) | DRG 291 ==
LOC: ER 23:42 → 2ND 09-18 09:16
PROVIDERS: Internal Medicine Adolescent Medicine; Admitting Provider Emergency Medicine; Emergency Provider Student in an Organized Health Care Education/Training Program; PCP Family Medicine; Visit Provider Family Medicine
DX: I50.23 Acute on chronic systolic (congestive) heart failure (principal); E87.1 Hypo-osmolality and hyponatremia; Z79.01 Long term (current) use of anticoagulants; E03.9 Hypothyroidism, unspecified; I11.0 Hypertensive heart disease with heart failure; I48.91 Unspecified atrial fibrillation; Z95.0 Presence of cardiac pacemaker; I25.5 Ischemic cardiomyopathy; I34.0 Nonrheumatic mitral (valve) insufficiency
CPT/HCPCS: 36415; 71045; 71046; 80048; 80053; 81001; 82803; 84484; 85007; 85025; 85378; 93005; 96375; 99284; C9803; U0003; U0005

== ENCOUNTER → 2022-10-28 13:08 | Outpatient (CLI) | payer MEDICARE, SELFPAY ==
--- NOTE | 2022-10-28 13:14 | XR_ITS ---
FINAL REPORT CLINICAL HISTORY: SOA,CHF COMPARISON: 09/20/2021 FINDINGS: TWO-VIEW CHEST The heart size is normal. The mediastinum is normal. The lungs are hyperinflated consistent with COPD. There is left base atelectasis or pneumonia with small pleural effusions. Left subclavian ICD is present. There is no pneumothorax. IMPRESSION: Left base atelectasis or pneumonia with small effusions. Findings consistent with COPD. Reviewed, Interpreted and Dictated by Cong Lim III, MD Transcribed by Shira Booker Authenticated and [facility]
[2022-10-28 14:00] LABS: Basophils # 0.1 K/mm3 (0-0.2); Basophils % 0.8 % (0.1-2.0); Eosinophils # 0.1 K/mm3 (0.0-0.4); Eosinophils % 1.5 % (0.1-12.0); Hematocrit 45.5 % (42.0-52.0); Hemoglobin 14.4 g/dL (14.1-18.0); Lymphocytes # 2.6 K/mm3 (0.7-4.5); Lymphocytes % 30.3 % (10-50); Mean Corpuscular HGB Conc 31.7 g/dL (31.8-35.4); Mean Corpuscular Volume 101.1 fl (80-94); Mean Platelet Volume 10.3 fl (7.4-10.4); Monocytes # 0.8 K/mm3 (0.1-1.0); Monocytes % 9.9 % (1.7-9.3); Neutrophils # 4.8 K/mm3 (1.8-7.8); Neutrophils % 57.4 % (37.0-80.0); Platelet Count 194 K/mm3 (142-424); Red Cell Distribution Width 14.2 % (11.5-17.5); White Blood Count 8.4 K/mm3 (4.8-10.8)
[2022-10-28 14:03] LABS: Chloride 102 mmol/L (98-107); Potassium 4.2 mmoL/L (3.5-5.1); Sodium 136 mmol/L (136-145)
[2022-10-28 14:05] LABS: Blood Urea Nitrogen 20 mg/dl (9-20); Estimated Glomerular Filt Rate 64 ml/min (>60); GFR (African American) 77 ML/MIN (>60)
[2022-10-28 14:06] LABS: Alanine Aminotransferase 30 U/L (12-78); Albumin Level 3.7 g/dl (3.5-5.0); Albumin/Globulin Ratio 1.3 (1.1-1.8); Alkaline Phosphatase 92 U/L (38-126); Anion Gap 8.2 mEq/L (5-15); Aspartate Amino Transferase 38 U/L (17-59); Bilirubin,Total 0.8 mg/dl (0.2-1.3); Calcium 8.5 mg/dl (8.4-10.2); Carbon Dioxide 30 mmol/L (22.0-30.0); Chol/HDL Ratio 2.4 (1-3.5); Cholesterol 129 mg/dl (140-200); Globulin 2.9 g/dL (1.3-3.2); Glucose 85 mg/dl (74-100); HDL Cholesterol 53 mg/dl (40-60); Total Protein,Serum 6.6 g/dl (6.3-8.2); Triglycerides 96 mg/dl (30-150); VLDL Cholesterol 19 mg/dL (0-40)
[2022-10-28 14:15] LABS: NT Pro Brain Natriuretic Pep. 4480 pg/mL (0-450)
[2022-10-28 14:18] LABS: Direct LDL Cholesterol 60.54 mg/dL (100-129)
[2022-10-28 14:23] LABS: Free T4 (Free Thyroxine) 2.58 ng/dl (0.78-2.19)
[2022-10-28 14:37] LABS: Thyroid Stimulating Hormone 3.22 uIU/mL (0.465-4.68)
[2022-10-28 14:38] LABS: 25-OH Vitamin D, Total 72.4 ng/mL (30-100)
== END ==
PROVIDERS: PCP Nurse Practitioner Family; Visit Provider Nurse Practitioner Family
DX: R06.02 Shortness of breath (principal); I50.9 Heart failure, unspecified; I42.9 Cardiomyopathy, unspecified; E78.5 Hyperlipidemia, unspecified; E55.9 Vitamin D deficiency, unspecified; E03.9 Hypothyroidism, unspecified
CPT/HCPCS: 36415; 71046; 80053; 80061; 82306; 83880; 84439; 84443; 85025

== ENCOUNTER 2023-08-26 10:39 | Observation (INO) | payer MEDICARE, SELFPAY ==
[2023-08-26] VITALS (14 sets, daily range): BP systolic 103–123; BP diastolic 63–88; PULSE 76–130; RESP 17–30; TEMP 36.4–36.9; O2SAT 90–97; BMI 20.2; BMI 20.3; BMI 18.1
--- NOTE | 2023-08-26 | CA_ITS ---
APPROVED REPORT EXAM: Comprehensive 2D, Doppler, and color-flow Echocardiogram Chiropractor Assistant: Rica Rangel RT(R) Ht: 6 ft 0 in Wt: 150lbs BSA: 1.88 BP: 118/79 mmHg Indications: CHF, CP, Hx CM, AFIB, pacemaker, severe MR on echo , HTN, hyperlipidemia, ex smoker. EF 30% echo 10/03/19. 2D Dimensions Left Atrium 5.33 cm M: 3.0 - 4.0 LVEF (Garcia's) 15.40 % M: 52 - 72 LVOT 2.01 cm (M/F) 1.5-2.5 LV Volume 170.60 mL M: 62 - 150 LV Volume Index 90.7 mL/m2 M: 34 - 74 LA Volume 57.80 mL LA Volume Index 30.74 mL/m2 (M/F) 16-34 EF AP4 14.40 % EF AP2 15.6 % EF BP 15.4 % GL Strain -7.3 % M-Mode Dimensions RVDd 1.86 cm (0.9-2.6) LVDd 6.54 cm (3.5-5.7) Ao Diam 3.27 cm (2.0-3.7) LVDs 5.63 cm (3.5-5.7) IVSd 0.99 cm (0.6-1.1) PWd 0.79 cm (0.6-1.1) EF (Teich) 28.90% FS 13.90% EDV (Teich) 219.00 mL TAPSE 1.87 (<1.7) ESV (Teich) 155.60 mL Tricuspid Valve TR P. Velocity 344.00 cm/s RAP Estimate 10.00 mmHg RVSP 57.30 mmHg Left Ventricle The left ventricle is normal size. Left ventricular systolic function is severely decreased. There is normal left ventricular wall thickness. There is severe global hypokinesis present. There is akinesis of the inferior, inferoseptal, inferoateral, anterior, and anteroseptal LV martin. Grade 3 diastolic dysfunction is present. LVEF is 15-20%. Right Ventricle Right ventricle is mildly to moderately dilated. Right ventricle is mildly hypokinetic. There is a device lead in the right ventricle. Atria Left atrium is moderately dilated. Right atrium is mildly dilated. There is no Doppler evidence of interatrial shunt. Aortic Valve The aortic valve is mildly thickened. There is no aortic valvular stenosis. Mild aortic regurgitation. Mitral Valve There is moderate mitral annular calcification. The mitral valve leaflets are mildly thickened. The posterior MV leaflet is tethered with restricted mobility. No evidence of mitral valve stenosis. Severe mitral regurgitation. The MR jet is eccentric and posteriorly directed. Tricuspid Valve The tricuspid valve leaflets are thin and pliable. Moderate to severe tricuspid regurgitation. RVSP is 45-50 mmHg. Pulmonic Valve The pulmonary valve is normal in structure. Trace pulmonic regurgitation. Great Vessels The aortic root is normal in size. The ascending aorta is normal in size. IVC is normal in size and collapses >50% with inspiration. Pericardium There is no pericardial effusion. Other Information Study Quality: Fair Conclusion Severe reduction in LV systolic function (LVEF 15-20%). Akinesis of the inferior, inferoseptal, inferoateral, anterior, and anteroseptal LV martin. Grade 3 diastolic dysfunction. Mild RV dysfunction. Biatrial dilation. Moderate mitral annular calcification. The mitral valve leaflets are mildly thickened. The posterior MV leaflet is tethered with restricted mobility. Severe mitral regurgitation. The MR jet is eccentric and posteriorly directed. Moderate to severe tricuspid regurgitation. Elevated RVSP 45-50 mmHg. Electronically signed by : Jnen Hubbard MD 08/27/2023 15:01:33
--- NOTE | 2023-08-26 10:40 | ECG_ITS ---
APPROVED REPORT Exam: Resting ECG HR:134 bpm ECG Measurements Heart Rate 134 AXES CO 76 P 230 QRSd 169 QRS -89 QT 380 T 80 QTc 459 Conclusion ECTOPIC ATRIAL TACHYCARDIA WITH SHORT CO INTERVAL RIGHT BUNDLE BRANCH BLOCK [120+ ms QRS DURATION, UPRIGHT V1, 40+ ms S IN I/aVL/V4/V5/V6] ANTERIOR MYOCARDIAL INFARCTION , POSSIBLY ACUTE [40+ ms Q WAVE AND/OR ST/T ABNORMALITY IN V3/V4] INFERIOR MYOCARDIAL INFARCTION , POSSIBLY ACUTE [40+ ms Q WAVE AND/OR ST/T ABNORMALITY IN II/aVF] ACUTE IL UNCONFIRMED REPORT Electronically signed by : Dwayne Wheeler MD 08/27/2023 20:12:45
--- NOTE | 2023-08-26 10:40 | PC.NURSE ---
PT PLACED ON 4L/NC
--- NOTE | 2023-08-26 10:54 | PC.NURSE ---
Linda Dixon gave VO of 2.5mg of metoprolol IV. Pulled from [employer] and confirmed dosing with MarilynRN and medication was given by BAIRON Trujillo. (Note entered per BAIRON Trujillo)
[2023-08-26 10:58] LABS: ABG Base Excess -4.3 mmol/L (-2.4-2.3); ABG HCO3 17.9 mmhg (22.0-26.0); ABG Oxygen Saturation 89 % (90-100); ABG PCO2 26.6 mmhg (35.0-45.0); ABG PH 7.45 mmol/L (7.35-7.45); ABG PO2 54.9 mmhg (80-100); ABG TCO2 18.7 mmhg (23-27)
[2023-08-26 10:59] LABS: Allen's Test Y; Oxygen ROOM AIR %; Source Left Radial
[2023-08-26] MEDS: METOPROLOL TARTRATE 5MG/5ML VIAL 2.5 MG IV ×2 (11:00→18:23)
--- NOTE | 2023-08-26 11:09 | XR_ITS ---
FINAL REPORT CLINICAL HISTORY: Shortness of breath and chest pain COMPARISON: 10/28/2022 FINDINGS: A single portable view of the chest was obtained. Left subclavian ICD is present. The heart size and pulmonary vascularity are within normal limits. The mediastinum is within normal limits. There is mild bibasilar atelectasis or pneumonia. The bony thorax is intact. IMPRESSION: Mild bibasilar atelectasis or pneumonia. Reviewed, Interpreted and Dictated by Cong Lim III, MD Transcribed by Anai Paige Authenticated and [facility]
--- NOTE | 2023-08-26 11:09 | [facility].EDCP ---
Discharge Plan Disposition Patient Disposition: Admitted Chief Complaint: Chest Pain Prescriptions Prescriptions: No Action levothyroxine 50 mcg tablet 50 mcg PO DAILYDM Patient Comments: TAKE 1 TABLET BY MOUTH ONCE DAILY IN THE MORNING ON AN EMPTY STOMACH tamsulosin 0.4 mg capsule 0.4 mg PO HS pravastatin 40 MG tablet 40 mg PO HS Rx Instructions: 1/2 tab daily-PM amiodarone 200 MG tablet 200 mg PO DAILY iron 18 MG tablet 65 mg PO HS temazepam 15 MG capsule 15 mg PO HSP PRN (Reason: Insomnia) carvedilol 3.125 MG tablet 3.125 mg PO BID ascorbic acid (vitamin C) 500 MG tablet 500 mg PO DAILY cholecalciferol (vitamin D3) 1,000 UNIT capsule 1,000 unit PO DAILY apixaban 5 MG tablet 5 mg PO BID cholecalciferol (vitamin D3) 50 MCG capsule 50 mcg PO HS furosemide 40 MG tablet 40 mg PO DAILY Qty: 30 0RF Referrals Follow up/Referrals: Provider,Referral, MD [Referring] - See instructions Clinical Impressions Clinical Impression: CHF exacerbation Qualifiers: Heart failure type: systolic Qualified Code(s): I50.23 - Acute on chronic systolic (congestive) heart failure Discharge ED Provider: Iron Tariq HPI General Chief Complaint: Chest Pain Stated Complaint: Chest Pain Time Seen by Provider: 08/26/23 10:40 History of Present Illness HPI narrative: 82-year-old male history of present, hyperlipidemia, CHF, A-fib on Eliquis presenting with palpitations. Patient states this has been going on for couple of days, getting worse today. Because of his history came to the emergency department for further evaluation. On arrival, patient feeling short of breath, but no overt chest pains. No nausea, vomiting, sick symptoms, lower extremity swelling, or any other concerns recently Related Data Home Medications Medication Instructions Recorded Confirmed amiodarone 200 mg tablet 200 mg PO DAILY atrial fib 06/14/18 09/18/21 pravastatin 40 mg tablet 40 mg PO HS Cholesterol 06/14/18 09/18/21 levothyroxine 50 mcg tablet 50 mcg PO DAILYDM hypothyroidism 09/01/19 09/18/21 tamsulosin 0.4 mg capsule 0.4 mg PO HS URINARY RETENTION 09/01/19 09/18/21 iron 18 mg tablet 65 mg PO HS Supplement 10/02/19 09/18/21 apixaban 5 mg tablet 5 mg PO BID Blood thinner 09/18/21 09/18/21 ascorbic acid (vitamin C) 500 mg 500 mg PO DAILY Supplement 09/18/21 09/18/21 tablet carvedilol 3.125 mg tablet 3.125 mg PO BID Heart Rate 09/18/21 09/18/21 cholecalciferol (vitamin D3) 25 1,000 unit PO DAILY Supplement 09/18/21 09/18/21 mcg (1,000 unit) capsule cholecalciferol (vitamin D3) 50 50 mcg PO HS Supplement 09/18/21 09/18/21 mcg (2,000 unit) capsule temazepam 15 mg capsule 15 mg PO HSP PRN Insomnia 09/18/21 09/18/21 Previous Rx's Medication Instructions Recorded furosemide 40 mg tablet 40 mg PO DAILY #30 tabs 09/22/21 Allergies Allergy/AdvReac Type Severity Reaction Status Date / Time No Known Allergies Allergy Verified 10/02/19 15:22 [facility] Disclaimer: The information contained in this section may have been updated after the patient was seen, as this information can be updated by other users. Medical History (Updated 08/26/23 @ 14:19 by Iron Tariq MD) Atrial fibrillation with RVR Chest pain Dilated cardiomyopathy HFrEF (heart failure with reduced ejection fraction) Hyperlipidemia Hypertension Shortness of Breath Surgical History (Updated 08/26/23 @ 14:06 by Linda Dixon APRN) Presence of biventricular AICD Social History Smoking Status: Former smoker tobacco type: cigarettes alcohol intake: never substance use type: denies use current occupational status: retired Travel in the last 8 weeks: None household members: spouse housing: house caffeine: No ROS Obtained: Yes All systems reviewed & no additional complaints except as documented Physical Exam General General appearance: alert Neck Neck exam: Present trachea midline Chest Chest inspection: Present normal inspection and symmetric chest wall rise Respiratory Respiratory exam: Present normal lung sounds bilaterally; Absent respiratory distress, wheezes, stridor, accessory muscle use or prolonged expiratory phase Cardiovascular Cardiovascular exam: Present regular rate and normal rhythm Extremities Exam Extremities exam: Absent edema Neurological Exam Neurological exam: Present alert, oriented X3 and CN II-XII intact Skin Skin exam: Present warm and dry; Absent cyanosis, diaphoresis or pallor HEART Score HEART Score HEART Score assessment performed?: Yes History (anamnesis): Moderately suspicious ECG: Non-specific disturbance Age: >65 years Risk factors: 3 or more risk factors Troponin: 1-3x normal limit HEART Score: 7 Procedures Limited Ultrasound Indication:: Limited cardiac ultrasound Indication: Palpitations, shortness of breath Identified cardiac views: -Cardiac parasternal long axis -Cardiac parasternal short axis -Cardiac apical four-chamber Findings: -Cardiac activity present -Gross wall motion abnormal and posterior lateral LV -Pericardial effusion absent -Right heart strain absent Impression: -Wall motion abnormality and posterolateral LV, overall hypodynamic Images were saved to permanent archive The study was technically adequate CPT: 94740 This study was performed by me, and I personally interpreted all images/videos. Based on my clinical judgement, these images were adequate and did not necessitate further imaging. Critical Care Critical Care Time Critical Care Time: Yes (CV) Attestation: On 08/26/23, the high probability of a clinically significant, sudden or life threatening deterioration of the following system(s) required my full and direct attention, intervention and personal management. The time I documented below is in addition to time spent performing reported procedures but includes the following listed in this critical care notation. Total Time Total Critical Care Time: 60 Medical Decision Making Medical Records Medical records reviewed: Yes I reviewed the patient's medical records. Dandy Inquiry Pt receiving controlled substance: No Dandy was queried for this patient: No Vital Signs Vital Signs: 08/26/23 11:00 08/26/23 11:30 08/26/23 12:00 Temperature Temperature Source Pulse Rate 101 H 102 H 99 H Pulse Rate [Apical] Respiratory Rate 30 H 21 29 H Blood Pressure 118/79 120/72 115/78 Blood Pressure [Right Arm] Blood Pressure Mean Blood Pressure Mean [Right Arm] Blood Pressure Source [Right Arm] Blood Pressure Position [Right Arm] 02 Sat by Pulse Oximetry 92 L 94 L 96 Oxygen Delivery Method Room Air 08/26/23 10:40 08/26/23 12:30 08/26/23 13:00 Temperature 97.9 F Temperature Source Oral Pulse Rate 93 H Pulse Rate [Apical] 130 H Respiratory Rate 20 22 20 Blood Pressure 111/72 111/77 Blood Pressure [Right Arm] 123/88 Blood Pressure Mean 81 Blood Pressure Mean [Right Arm] 99 Blood Pressure Source [Right Arm] Automatic Cuff Blood Pressure Position [Right Arm] Sitting 02 Sat by Pulse Oximetry 90 L 95 96 Oxygen Delivery Method Room Air Room Air 08/26/23 13:30 Temperature Temperature Source Pulse Rate 91 H Pulse Rate [Apical] Respiratory Rate 25 H Blood Pressure 106/77 L Blood Pressure [Right Arm] Blood Pressure Mean Blood Pressure Mean [Right Arm] Blood Pressure Source [Right Arm] Blood Pressure Position [Right Arm] 02 Sat by Pulse Oximetry 95 Oxygen Delivery Method Room Air Lab Data Labs: Lab Results 08/26/23 10:45: Specimen Source Left radial, O2 % Room air, ABG pH 7.45, ABG pCO2 26.6 L, ABG pO2 54.9 L, ABG HCO3 17.9 L, ABG Total CO2 18.7 L, ABG O2 Saturation 89 L, ABG Base Excess -4.3 L, Nasir Test Y 08/26/23 10:49: WBC 14.1 H, RBC 4.98, Hgb 16.4, Hct 50.4, MCV 101.1 H, MCH 33.0 H, MCHC 32.6, RDW 13.7, Plt Count 222, MPV 9.6, Neut % (Auto) 71.3, Lymph % (Auto) 20.4, [place] % (Auto) 7.6, Eos % (Auto) 0.4, Baso % (Auto) 0.3, Neut # (Auto) 10.1 H, Lymph # (Auto) 2.9, [place] # (Auto) 1.1 H, Eos # (Auto) 0.1, Baso # (Auto) 0.0, Sodium 141, Potassium 4.4, Chloride 104, Carbon Dioxide 25, Anion Gap 16.4 H, BUN 31 H, Creatinine 1.40 H, Estimated Creat Clear 38, Estimated GFR 48 L, Est GFR ( Amer) 58 L, Glucose 145 H, Calcium 8.8, Total Bilirubin 1.5 H, AST 53, ALT 44, Alkaline Phosphatase 97, Troponin I 0.02, NT-Pro-B Natriuret Pep 9180 H, Total Protein 8.0, Albumin 4.5, Globulin 3.5 H, Albumin/Globulin Ratio 1.3 08/26/23 10:49 08/26/23 10:49 Response Orders (Tests/Meds): ED MEDICATIONS Discontinued Medications Generic Name Dose Route Start Last Admin Trade Name Freq PRN Reason Stop Dose Admin Aspirin 324 mg 08/26/23 11:08 08/26/23 11:18 Aspirin 81mg Chewable Tablet PO 08/26/23 11:09 324 mg ONCE ONE Administration Furosemide 40 mg 08/26/23 11:04 08/26/23 11:19 Furosemide 40mg/4ml Vial IV 08/26/23 11:05 40 mg ONCE ONE Administration Metoprolol Tartrate 2.5 mg 08/26/23 10:59 08/26/23 11:00 Metoprolol Tartrate 5mg/5ml Vial IV 08/26/23 11:00 2.5 mg ONCE ONE Administration Nitroglycerin 0.5 gm 08/26/23 11:04 08/26/23 11:18 Nitroglycerin 1 Gm Ointment TD 08/26/23 11:05 0.5 gm ONCE ONE Administration ORDERS Category Date Time Status POCUS Point of Care (ER Only) Stat Exams 08/26/23 10:57 Taken XR chest portable Stat Exams 08/26/23 11:09 Completed Basic Metabolic Panel AMLAB Lab 08/27/23 06:00 Ordered Brain Natriuretic Peptide Stat Lab 08/26/23 10:49 Completed Complete Blood Count Auto Diff AMLAB Lab 08/27/23 06:00 Ordered Complete Blood Count Auto Diff Stat Lab 08/26/23 10:49 Completed Comprehensive Metabolic Panel Stat Lab 08/26/23 10:49 Completed Free T4 (Free Thyroxine) AMLAB Lab 08/27/23 06:00 Ordered Lactic Acid Stat Lab 08/26/23 11:09 Ordered Lipid Panel AMLAB Lab 08/27/23 06:00 Ordered Liver Panel AMLAB Lab 08/27/23 06:00 Ordered Thyroid Stimulating Hormone AMLAB Lab 08/27/23 06:00 Ordered Troponin I Q3H Lab 08/26/23 14:15 Ordered Troponin I Q3H Lab 08/26/23 17:15 Ordered Troponin I Stat Lab 08/26/23 10:49 Completed Arterial Blood Gas Routine RT 08/26/23 10:45 Completed CA echo doppler complete Routine Y 08/26/23 Completed MDM Narrative Medical Decision Narrative: 82-year-old male history of present, hyperlipidemia, CHF, A-fib on Eliquis presenting with palpitations. Patient states this has been going on for couple of days, getting worse today. Because of his history came to the emergency department for further evaluation. On arrival, patient feeling short of breath, but no overt chest pains. No nausea, vomiting, sick symptoms, lower extremity swelling, or any other concerns recently. History was obtained via conversation with patient. On arrival, patient hemodynamically stable, alert, oriented x4, appropriate, GCS 15, moving all extremities spontaneously, pupils equal and reactive to light. Full physical exam performed and significant for chronically ill-appearing male no acute distress. Tachycardic no lower extremity edema. No extracardiac sounds. Patient pulses equal and symmetric. Lungs clear to auscultation bilaterally, but quite in the bases. Differential includes ACS, HI, pneumothorax, PE, dissection, pneumothorax, aortic aneurysm, pneumonia, bronchitis, among others. Patient was given metoprolol 2.5 mg IV, aspirin, Lasix for symptomatic management and correction of underlying abnormalities. Workup independently interpreted and significant for mild leukocytosis 14.1. ABG nonactionable. Chemistry with TON. BNP elevated at 9100. Chest x-ray with bilateral pulmonary edema. [id number] ultrasound with mitral valve regurgitation, wall motion abnormality of LV. see radiology read for full review of final results. Independent interpretation of EKG shows atrial tachycardia versus A-fib with RVR 134 bpm with concern for ST elevations in leads II, 3, aVF and depressions in V6. Right bundle branch block morphology with wide QRS. QT interval within normal limits. Cardiology was contacted. Heart score 7. Cardiology consulted and case was discussed at length, see their note for recommendations. On reevaluation, patient nontachycardic and resting more comfortably. Lasix was given. Because patient high risk for clinical decompensation, deemed appropriate for inpatient admission. Results were relayed to patient who voiced understanding and patient was agreeable to inpatient admission and management. Patient was admitted to the hospital for further definitive management.
[2023-08-26] MEDS: ASPIRIN 81MG CHEWABLE TABLET 324 MG PO (11:18)
[2023-08-26] MEDS: NITROGLYCERIN 1 GM OINTMENT 0.5 GM TD (11:18)
[2023-08-26 11:19] LABS: Basophils % 0.3 % (0.1-2.0); Eosinophils # 0.1 K/mm3 (0.0-0.4); Eosinophils % 0.4 % (0.1-12.0); Hematocrit 50.4 % (42.0-52.0); Hemoglobin 16.4 g/dL (14.1-18.0); Lymphocytes # 2.9 K/mm3 (0.7-4.5); Lymphocytes % 20.4 % (10-50); Mean Corpuscular HGB Conc 32.6 g/dL (31.8-35.4); Mean Corpuscular Volume 101.1 fl (80-94); Mean Platelet Volume 9.6 fl (7.4-10.4); Monocytes # 1.1 K/mm3 (0.1-1.0); Monocytes % 7.6 % (1.7-9.3); Neutrophils # 10.1 K/mm3 (1.8-7.8); Neutrophils % 71.3 % (37.0-80.0); Platelet Count 222 K/mm3 (142-424); Red Blood Count 4.98 M/mm3 (4.60-6.20); Red Cell Distribution Width 13.7 % (11.5-17.5); White Blood Count 14.1 K/mm3 (4.8-10.8)
[2023-08-26] MEDS: FUROSEMIDE 40MG/4ML VIAL 40 MG IV (11:19)
[2023-08-26 11:22] LABS: Chloride 104 mmol/L (98-107); Potassium 4.4 mmoL/L (3.5-5.1); Sodium 141 mmol/L (136-145)
[2023-08-26 11:24] LABS: Blood Urea Nitrogen 31 mg/dl (9-20); Creatinine Clearance Estimated 38 mL/min (50-200); Estimated Glomerular Filt Rate 48 ml/min (>60); GFR (African American) 58 ML/MIN (>60)
[2023-08-26 11:25] LABS: Alanine Aminotransferase 44 U/L (12-78); Albumin Level 4.5 g/dl (3.5-5.0); Albumin/Globulin Ratio 1.3 (1.1-1.8); Alkaline Phosphatase 97 U/L (38-126); Anion Gap 16.4 mEq/L (5-15); Aspartate Amino Transferase 53 U/L (17-59); Bilirubin,Total 1.5 mg/dl (0.2-1.3); Calcium 8.8 mg/dl (8.4-10.2); Carbon Dioxide 25 mmol/L (22.0-30.0); Globulin 3.5 g/dL (1.3-3.2); Glucose 145 mg/dl (74-100)
[2023-08-26 11:36] LABS: Troponin I 0.02 ng/ml (0.00-0.034)
--- NOTE | 2023-08-26 12:16 | PC.NURSE ---
ROUNDED ON PT, UPDATED PT AND FAMILY. URINAL PROVIDED. CALL LIGHT WITHIN REACH
[2023-08-26 13:39] LABS: NT Pro Brain Natriuretic Pep. 9180 pg/mL (0-450)
--- NOTE | 2023-08-26 14:03 | EXP.CARD.CON ---
History of Present Illness History of Present Illness Consult date: 08/26/23 Requesting physician: Iron Tariq Consult reason: chest pain Chief complaint: chest pain History of present illness: This is an 82-year-old white gentleman who presented to the emergency department with complaints of chest pain. He has a past known medical history of atrial fibrillation, congestive heart failure status post BiV AICD placement, hypertension and hyperlipidemia. The patient states that for the past few days he has been having worsening shortness of breath and chest pain. He states that his not unusual for him to have some pressure in his chest with some tightness. He states that this is significantly worsened and he was having substernal pressure worse with exertion and improved with rest but was not resolving. The patient states that he just feels short of breath all the time he denies any nausea vomiting or diaphoresis associated with the chest pain and pressure. He denies any lower extremity edema. He denies any fever, chills, nausea, vomiting or diarrhea. [facility] Disclaimer: The information contained in this section may have been updated after the patient was seen, as this information can be updated by other users. Medical History (Updated 08/26/23 @ 14:07 by Linda Dixon APRN) Atrial fibrillation with RVR Chest pain Dilated cardiomyopathy HFrEF (heart failure with reduced ejection fraction) Hyperlipidemia Hypertension Shortness of Breath Surgical History (Updated 08/26/23 @ 14:06 by Linda Dixon APRN) Presence of biventricular AICD Social History Smoking Status: Former smoker tobacco type: cigarettes alcohol intake: never substance use type: denies use current occupational status: retired Travel in the last 8 weeks: None household members: spouse housing: house caffeine: No Review of Systems Review of Systems Review of systems:: pertinent systems reviewed and negative unless documented below Constitutional Constitutional: Reports system reviewed and no additional complaints, except as documented and Reports lethargy Eyes Eyes: Reports system reviewed and no additional complaints, except as documented ENT Ears, Nose, Mouth, and Throat: Reports system reviewed and no additional complaints, except as documented *Cardiovascular Cardiovascular: Reports system reviewed and no additional complaints, except as documented, Reports chest pain, Reports chest pain at rest, Reports chest pain with activity, Reports dyspnea, Reports dyspnea on exertion and Denies palpitations *Respiratory Respiratory: Reports system reviewed and no additional complaints, except as documented, Reports dyspnea and Reports dyspnea on exertion *Gastrointestinal Gastrointestinal: Reports system reviewed and no additional complaints, except as documented *Genitourinary Genitourinary: Reports system reviewed and no additional complaints, except as documented *Musculoskeletal Musculoskeletal: Reports system reviewed and no additional complaints, except as documented Integumentary/Breasts Skin/Breast: Reports system reviewed and no additional complaints, except as documented *Neurologic Neurologic: Reports system reviewed and no additional complaints, except as documented Psychiatric Psychiatric: Reports system reviewed and no additional complaints, except as documented Endocrine Endocrine: Reports system reviewed and no additional complaints, except as documented and Denies palpitations Hematologic/Lymphatic Hematologic/Lymphatic: Reports system reviewed and no additional complaints, except as documented Allergic/Immunologic Allergic/Immunologic: Reports system reviewed and no additional complaints, except as documented Exam Data for Last 24 hours Vital signs and Labs for Last 24 Hours: Temp Pulse Resp BP Pulse Ox O2 Del Method 97.9 F 91 H 25 H 106/77 L 95 Room Air 08/26/23 10:40 08/26/23 13:30 08/26/23 13:30 08/26/23 13:30 08/26/23 13:30 08/26/23 13:30 Laboratory Results - last 24 hr 08/26/23 10:45: Specimen Source Left radial, O2 % Room air, ABG pH 7.45, ABG pCO2 26.6 L, ABG pO2 54.9 L, ABG HCO3 17.9 L, ABG Total CO2 18.7 L, ABG O2 Saturation 89 L, ABG Base Excess -4.3 L, Nasir Test Y 08/26/23 10:49: WBC 14.1 H, RBC 4.98, Hgb 16.4, Hct 50.4, MCV 101.1 H, MCH 33.0 H, MCHC 32.6, RDW 13.7, Plt Count 222, MPV 9.6, Neut % (Auto) 71.3, Lymph % (Auto) 20.4, [place] % (Auto) 7.6, Eos % (Auto) 0.4, Baso % (Auto) 0.3, Neut # (Auto) 10.1 H, Lymph # (Auto) 2.9, [place] # (Auto) 1.1 H, Eos # (Auto) 0.1, Baso # (Auto) 0.0, Sodium 141, Potassium 4.4, Chloride 104, Carbon Dioxide 25, Anion Gap 16.4 H, BUN 31 H, Creatinine 1.40 H, Estimated Creat Clear 38, Estimated GFR 48 L, Est GFR ( Amer) 58 L, Glucose 145 H, Calcium 8.8, Total Bilirubin 1.5 H, AST 53, ALT 44, Alkaline Phosphatase 97, Troponin I 0.02, NT-Pro-B Natriuret Pep 9180 H, Total Protein 8.0, Albumin 4.5, Globulin 3.5 H, Albumin/Globulin Ratio 1.3 I & O for Last 24 hours: Intake & Output 08/23/23 08/24/23 08/25/23 08/26/23 23:59 23:59 23:59 23:59 Weight 150 lb Narrative: EKG is atrial fibrillation with RVR, right bundle branch block, diffuse ST and T wave abnormalities. Constitutional Constitutional: no acute distress and average body habitus *Routine HEENT Exam Head: Present normocephalic and atraumatic ENT: Present mucous membranes moist *Routine Neck Exam Neck: Present supple, full ROM and normal carotid upstroke; Absent JVD, carotid bruit or lymphadenopathy *Routine Respiratory Exam Respiratory: Present CTA bilaterally, normal respiratory effort, able to speak in complete sentences and symmetric chest movement *Routine Cardiovascular Exam Cardiovascular: Present Normal S1, Normal S2, tachycardia and irregularly irregular; Absent murmur or gallop *Routine Abdominal Exam Abdominal: Present soft and normoactive bowel sounds; Absent tenderness, distended or organomegaly *Routine Extremities Exam Extremities: Present full ROM, pulses intact and normal capillary refill; Absent cyanosis, clubbing or edema *Routine Skin Exam Skin: Present intact and warm; Absent erythema *Routine Neurological Exam Neurological: Present alert, oriented X3 and CN II-XII intact; Absent sensory deficit or motor deficit Routine Psychiatric Exam Psychiatric: Present normal affect Meds Home Medications and Allergies Home Medications Medication Instructions Recorded Confirmed Type amiodarone 200 mg tablet 200 mg PO DAILY atrial fib 06/14/18 09/18/21 History pravastatin 40 mg tablet 40 mg PO HS Cholesterol 06/14/18 09/18/21 History levothyroxine 50 mcg tablet 50 mcg PO DAILYDM hypothyroidism 09/01/19 09/18/21 History tamsulosin 0.4 mg capsule 0.4 mg PO HS URINARY RETENTION 09/01/19 09/18/21 History iron 18 mg tablet 65 mg PO HS Supplement 10/02/19 09/18/21 History apixaban 5 mg tablet 5 mg PO BID Blood thinner 09/18/21 09/18/21 History ascorbic acid (vitamin C) 500 mg 500 mg PO DAILY Supplement 09/18/21 09/18/21 History tablet carvedilol 3.125 mg tablet 3.125 mg PO BID Heart Rate 09/18/21 09/18/21 History cholecalciferol (vitamin D3) 25 1,000 unit PO DAILY Supplement 09/18/21 09/18/21 History mcg (1,000 unit) capsule cholecalciferol (vitamin D3) 50 50 mcg PO HS Supplement 09/18/21 09/18/21 History mcg (2,000 unit) capsule temazepam 15 mg capsule 15 mg PO HSP PRN Insomnia 09/18/21 09/18/21 History furosemide 40 mg tablet 40 mg PO DAILY #30 tabs 09/22/21 Rx New Prescriptions to Start Prescriptions: Allergies Allergy/AdvReac Type Severity Reaction Status Date / Time No Known Allergies Allergy Verified 10/02/19 15:22 Assessment and Plan *Assessment and plan (1) Atrial fibrillation with RVR: Status: Acute Category: Medical Code(s): I48.91 - Unspecified atrial fibrillation (2) HFrEF (heart failure with reduced ejection fraction): Status: Acute Category: Medical Code(s): I50.20 - Unspecified systolic (congestive) heart failure (3) Pulmonary edema: Status: Acute Qualifiers: Chronicity: acute Qualified Code(s): J81.0 - Acute pulmonary edema Category: Medical Code(s): J81.1 - Chronic pulmonary edema (4) Hypertension: Status: Acute Qualifiers: Hypertension type: primary hypertension Qualified Code(s): I10 - Essential (primary) hypertension Category: Medical Code(s): I10 - Essential (primary) hypertension (5) Hyperlipidemia: Status: Acute Qualifiers: Hyperlipidemia type: mixed hyperlipidemia Qualified Code(s): E78.2 - Mixed hyperlipidemia Category: Medical Code(s): E78.5 - Hyperlipidemia, unspecified (6) Dilated cardiomyopathy: Status: Acute Category: Medical Code(s): I42.0 - Dilated cardiomyopathy (7) Presence of biventricular AICD: Status: Acute Category: Surgical Code(s): Z95.810 - Presence of automatic (implantable) cardiac defibrillator (8) Chest pain: Status: Acute Qualifiers: Chest pain type: unspecified Qualified Code(s): R07.9 - Chest pain, unspecified Category: Medical Code(s): R07.9 - Chest pain, unspecified (9) Shortness of Breath: Status: Acute Category: Medical Code(s): R06.02 - Shortness of breath Plan Plan: 1. This is an 82-year-old gentleman who presented to the emergency department complaints of chest pain and shortness of breath. Initially was felt that the patient was having a STEMI and an overhead STEMI alert was called. However on further review of the EKG the patient was not having a STEMI. He was V pacing with an underlying atrial fibrillation with RVR and diffuse ST and T wave abnormalities. The STEMI alert was canceled. The patient was given metoprolol 2.5 mg IV x 1 dose and his rate did slow down. At that point it was much clear that the patient was in atrial fibrillation with RVR and V pacing. 2. We will obtain serial troponins to rule out an UT secondary to his chest pain. His initial troponin is negative. 3. The patient does have a history of dilated cardiomyopathy and is status post BiV AICD placement. Will obtain an echocardiogram to evaluate his LV function. Limited bedside echo shows an ejection fraction around 20%. Will await full echocardiogram and interpretation. 4. The patient does have atrial fibrillation with RVR. He was treated with metoprolol and his rate did improve. Consider an amiodarone drip if the patient remains in RVR. 5. The patient does have HFrEF. Will give him a dose of Lasix 40 mg IV x 1 dose now. 6. The patient is still experiencing chest pain. This is most likely from him being in atrial fibrillation with RVR and in acute heart failure. Will give him Nitropaste half an inch every 8 hours. 7. Continue his carvedilol. 8. His blood pressure is currently well-controlled. 9. His LDL goal is less than 100. He is on a statin. 10. The patient does have a history of atrial fibrillation. He states that he has been cardioverted multiple times and has had 2 ablations. He takes amiodarone and carvedilol at home. He is on long-term anticoagulation with Eliquis. 11. Further recommendations will be made pending the patient's response to treatment. As mentioned above we will do serial troponins. If his troponin does elevate then we will consider taking him to the Ultrasound Tech at that time. Thank you for the opportunity to help participate in the care of this patient. All recommendations and orders are per Dr. Hubbard.
[2023-08-26 15:12] LABS: Troponin I 0.28 ng/ml (0.00-0.034)
--- NOTE | 2023-08-26 15:17 | PC.NURSE ---
DR MANZANO PAGED
--- NOTE | 2023-08-26 15:20 | PC.NURSE ---
DR MARTINEZ FROM CARDIOLOGY AT
--- NOTE | 2023-08-26 16:22 | PC.NURSE ---
REPORT GIVEN TO FABIOLA RN
--- NOTE | 2023-08-26 16:44 | PC.NURSE ---
arrived by w/c from ED
[2023-08-26 17:41] LABS: Lactic Acid 1.3 mmol/L (0.7-2.1)
--- NOTE | 2023-08-26 17:44 | P.HP_ITS ---
History of Present Illness *Admission Date: 08/26/23 *Reason for visit:: Chest pain *History of present illness: Mr. Mason is an 82-year-old male with history of CHF, BiV AICD, hypertension, hyperlipidemia. Presented to the ER due to complaint of some chest pain. Improved by the time he got to the ER. History of A-fib, CHF, hypertension, hyperlipidemia. Over the past few days he has had intermittent episodes of shortness of breath and chest pressure. Today he had a worsening episode that was substernal. Worse with exertion but improved at rest. Denies that he feels short of breath more acutely but is short of breath chronically. Denies any nausea or vomiting. On eval in the ER, concern for elevated BNP at 9100, initial troponin 0.02. Patient was given a dose of metoprolol with improvement in his heart rate. Initiated on diuresis. Cardiology consulted. Recommended the patient be admitted for further eval and workup. After arriving to the floor, patient is on room air. Denies any chest pain at this time. Showing response to diuresis with good urine output. [facility] Disclaimer: The information contained in this section may have been updated after the diane t was seen, as this information can be updated by other users. Medical History Atrial fibrillation with RVR Chest pain Dilated cardiomyopathy HFrEF (heart failure with reduced ejection fraction) Hyperlipidemia Hypertension Shortness of Breath Surgical History Presence of biventricular AICD Social History Smoking Status: Former smoker tobacco type: cigarettes alcohol intake: never substance use type: denies use current occupational status: retired Travel in the last 8 weeks: None household members: spouse housing: house caffeine: No Review of Systems Review of Systems Review of systems (narrative): 14 point review of systems performed, pertinent positives and negatives as per HPI *Neurologic Neurologic: Reports system reviewed and no additional complaints, except as documented Meds Home Medications and Allergies Home Medications Medication Instructions Recorded Confirmed Type amiodarone 200 mg tablet 200 mg PO DAILY atrial fib 06/14/18 08/26/23 History pravastatin 40 mg tablet 40 mg PO HS Cholesterol 06/14/18 08/26/23 History levothyroxine 50 mcg tablet 50 mcg PO DAILYDM hypothyroidism 09/01/19 08/26/23 History tamsulosin 0.4 mg capsule 0.4 mg PO HS URINARY RETENTION 09/01/19 08/26/23 History apixaban 5 mg tablet 5 mg PO BID Blood thinner 09/18/21 08/26/23 History ascorbic acid (vitamin C) 500 mg 500 mg PO DAILY Supplement 09/18/21 08/26/23 History tablet carvedilol 3.125 mg tablet 3.125 mg PO BID Heart Rate 09/18/21 08/26/23 History furosemide 40 mg tablet 40 mg PO DAILY #30 tabs 09/22/21 08/26/23 Rx New Prescriptions to Start Prescriptions: Allergies Allergy/AdvReac Type Severity Reaction Status Date / Time No Known Allergies Allergy Verified 10/02/19 15:22 Exam Data for Last 24 hours Vital signs and Labs for Last 24 Hours: Temp Pulse Resp BP Pulse Ox O2 Del Method O2 Flow Rate 97.6 F 92 H 18 110/75 96 Nasal Cannula 2 08/26/23 16:40 08/26/23 16:40 08/26/23 16:40 08/26/23 16:40 08/26/23 16:00 08/26/23 16:40 08/26/23 16:40 Laboratory Results - last 24 hr 08/26/23 10:45: Specimen Source Left radial, O2 % Room air, ABG pH 7.45, ABG pCO2 26.6 L, ABG pO2 54.9 L, ABG HCO3 17.9 L, ABG Total CO2 18.7 L, ABG O2 Saturation 89 L, ABG Base Excess -4.3 L, Nasir Test Y 08/26/23 10:49: WBC 14.1 H, RBC 4.98, Hgb 16.4, Hct 50.4, MCV 101.1 H, MCH 33.0 H, MCHC 32.6, RDW 13.7, Plt Count 222, MPV 9.6, Neut % (Auto) 71.3, Lymph % (Auto) 20.4, [place] % (Auto) 7.6, Eos % (Auto) 0.4, Baso % (Auto) 0.3, Neut # (Auto) 10.1 H, Lymph # (Auto) 2.9, [place] # (Auto) 1.1 H, Eos # (Auto) 0.1, Baso # (Auto) 0.0, Sodium 141, Potassium 4.4, Chloride 104, Carbon Dioxide 25, Anion Gap 16.4 H, BUN 31 H, Creatinine 1.40 H, Estimated Creat Clear 38, Estimated GFR 48 L, Est GFR ( Amer) 58 L, Glucose 145 H, Calcium 8.8, Total Bilirubin 1.5 H, AST 53, ALT 44, Alkaline Phosphatase 97, Troponin I 0.02, NT-Pro-B Natriuret Pep 9180 H, Total Protein 8.0, Albumin 4.5, Globulin 3.5 H, Albumin/Globulin Ratio 1.3 08/26/23 14:20: Troponin I 0.28 H I & O for Last 24 hours: Intake & Output 08/23/23 08/24/23 08/25/23 08/26/23 23:59 23:59 23:59 23:59 Intake Total 210 / 210 Balance 210 / 210 Weight 68.039 kg Constitutional Constitutional: no acute distress, thin and chronically ill appearing *Routine HEENT Exam Head: Present normocephalic Eye: Present EOMI and PERRL ENT: Present mucous membranes moist *Routine Neck Exam Neck: Present supple; Absent lymphadenopathy *Routine Respiratory Exam Respiratory: Present crackles (In bases) and normal respiratory effort *Routine Cardiovascular Exam Cardiovascular: Present RRR and murmur *Routine Abdominal Exam Abdominal: Present soft and normoactive bowel sounds; Absent tenderness *Routine Rectal Exam Rectal:: deferred *Routine Genitalia Exam Genitalia:: deferred *Routine Extremities Exam Extremities: Absent cyanosis, clubbing or edema *Routine Skin Exam Skin: Present warm; Absent rash *Routine Neurological Exam Neurological: Present alert, oriented X3 and moving all extremities; Absent altered mental status Assessment and Plan *Assessment and plan (1) HFrEF (heart failure with reduced ejection fraction): Status: Acute Category: Medical Code(s): I50.20 - Unspecified systolic (congestive) heart failure (2) CHF exacerbation: Status: Acute Qualifiers: Heart failure type: systolic Qualified Code(s): I50.23 - Acute on chronic systolic (congestive) heart failure Category: Medical Code(s): I50.9 - Heart failure, unspecified (3) Chest pain: Status: Acute Qualifiers: Chest pain type: unspecified Qualified Code(s): R07.9 - Chest pain, unspecified Category: Medical Code(s): R07.9 - Chest pain, unspecified (4) Presence of biventricular AICD: Status: Acute Category: Surgical Code(s): Z95.810 - Presence of automatic (implantable) cardiac defibrillator (5) Hypertension: Status: Acute Qualifiers: Hypertension type: primary hypertension Qualified Code(s): I10 - Essential (primary) hypertension Category: Medical Code(s): I10 - Essential (primary) hypertension (6) Hyperlipidemia: Status: Acute Qualifiers: Hyperlipidemia type: mixed hyperlipidemia Qualified Code(s): E78.2 - Mixed hyperlipidemia Category: Medical Code(s): E78.5 - Hyperlipidemia, unspecified (7) Atrial fibrillation with RVR: Status: Acute Category: Medical Code(s): I48.91 - Unspecified atrial fibrillation Plan 82-year-old gentleman who presented with chest pain. Significant cardiac history. ER consulted medicine for admission given concern for CHF exacerbation. Medicine agreed to admit. Cardiology consulted, appreciate their assistance in care. Problems addressed as follows: Acute on chronic heart failure with reduced ejection fraction BiV AICD in situ Angina A-fib -Cardiology consulted, appreciate their recommendations. Received 2.5 mg IV dose metoprolol with improvement in heart rate in the ER. Patient's heart rate currently is A-fib with V pacing. No rosalinda STEMI in the ER. Monitor with serial troponins. -Continue home loll 3.125 mg twice daily, continue amiodarone 200 mg daily, continue apixaban 5 mg twice daily. Continue aspirin 81 mg daily. -Echo ordered and pending to evaluate LV function. Bedside echo with concern for EF of around 20%. Patient follows with cardiology at [facility]. -Responding to Lasix IV once, continue Lasix 40 mg IV twice daily for now Hyperlipidemia: Continue home pravastatin 40 mg nightly Hypothyroid: Continue levothyroxine 50 mcg daily BPH: Continue tamsulosin 0.4 mg daily Full code cardiac diet, NPO after midnight eliquis BID
[2023-08-26] MEDS: TAMSULOSIN 0.4 MG 0.400000000000000022 MG PO (21:16)
[2023-08-26] MEDS: APIXABAN 5 MG PO (21:16)
[2023-08-26] MEDS: PRAVASTATIN 40 MG PO (21:16)
[2023-08-26] MEDS: CARVEDILOL 3.125 MG PO (21:16)
[2023-08-27] VITALS (21 sets, daily range): BP systolic 85–127; BP diastolic 47–87; PULSE 65–102; RESP 16–20; TEMP 36.4–36.9; O2SAT 90–97; BMI 18.1
[2023-08-27] MEDS: LEVOTHYROXINE 50 MCG PO (06:42)
[2023-08-27 07:17] LABS: Anion Gap 6.6 mEq/L (5-15); Blood Urea Nitrogen 33 mg/dl (9-20); Calcium 8.3 mg/dl (8.4-10.2); Carbon Dioxide 28 mmol/L (22.0-30.0); Chloride 102 mmol/L (98-107); Chol/HDL Ratio 3.4 (1-3.5); Cholesterol 155 mg/dl (140-200); Creatinine Clearance Estimated 39 mL/min (50-200); Estimated Glomerular Filt Rate 58 ml/min (>60); GFR (African American) 70 ML/MIN (>60); Glucose 91 mg/dl (74-100); HDL Cholesterol 45 mg/dl (40-60); Potassium 4.6 mmoL/L (3.5-5.1); Sodium 132 mmol/L (136-145); Triglycerides 86 mg/dl (30-150); VLDL Cholesterol 17 mg/dL (0-40)
[2023-08-27 07:19] LABS: Basophils % 0.2 % (0.1-2.0); Eosinophils # 0.2 K/mm3 (0.0-0.4); Eosinophils % 1.1 % (0.1-12.0); Hematocrit 46.8 % (42.0-52.0); Hemoglobin 15.6 g/dL (14.1-18.0); Lymphocytes # 1.2 K/mm3 (0.7-4.5); Lymphocytes % 9.3 % (10-50); Mean Corpuscular HGB Conc 33.3 g/dL (31.8-35.4); Mean Corpuscular Hemoglobin 33.1 pg (27.0-31.2); Mean Corpuscular Volume 99.4 fl (80-94); Mean Platelet Volume 9.9 fl (7.4-10.4); Monocytes # 0.8 K/mm3 (0.1-1.0); Monocytes % 5.8 % (1.7-9.3); Neutrophils # 11.2 K/mm3 (1.8-7.8); Neutrophils % 83.6 % (37.0-80.0); Platelet Count 189 K/mm3 (142-424); Red Blood Count 4.71 M/mm3 (4.60-6.20); Red Cell Distribution Width 13.8 % (11.5-17.5); White Blood Count 13.4 K/mm3 (4.8-10.8)
[2023-08-27 07:28] LABS: Direct LDL Cholesterol 83.46 mg/dL (100-129)
--- NOTE | 2023-08-27 07:33 | HMH.PHAINT1 ---
Pharmacy Intervention Comments: Home med list verified with patient at bedside and with external pharmacy.
[2023-08-27 07:34] LABS: Free T4 (Free Thyroxine) 2.55 ng/dl (0.78-2.19)
[2023-08-27 07:48] LABS: Thyroid Stimulating Hormone 2.11 uIU/mL (0.465-4.68)
[2023-08-27] MEDS: CARVEDILOL 3.125 MG PO (08:56)
[2023-08-27] MEDS: AMIODARONE 200MG TABLET 200 MG PO (08:56)
[2023-08-27] MEDS: FUROSEMIDE 40MG/4ML VIAL 40 MG IV ×2 (10:07→15:43)
--- NOTE | 2023-08-27 11:42 | IR_ITS ---
APPROVED REPORT Patient Location: Inpatient [facility] Of Commission Department: [facility] RT (R) PROCEDURES Left heart catheterization Left ventriculogram Selective coronary angiogram Intravascular lithotripsy to the mid dominant right coronary artery Drug-eluting stent deployment to the proximal mid and distal dominant right coronary INDICATION Coronary artery disease, Critical calcific mid disease, Systolic congestive heart failure Informed consent was obtained prior to the procedure. COMPLICATIONS NONE Estimated Blood Loss: LESS THAN 10 ML TECHNIQUE One percent lidocaine used to anesthetize the right anterior aspect of the wrist. The right radial artery was accessed via the Seldinger technique. A 6 [place] sheath was placed in the right radial artery. 2.5 mg of Verapamil, 800 mcg of nitroglycerin, 1mg Lidocaine and 5000 U Heparin were given through the arterial sheath. A Cheezburgerpa catheter was used to perform selective coronary angiography. At the end of the diagnostic angiogram therapeutic heparin was administered giving a therapeutic ACT and the guide catheter was placed in the right coronary artery followed by a Choice PT extra-support wire being placed distally. Despite using a guide liner and multiple balloons all the way down to a 1.25 mm balloon nothing would traverse the critical calcified mid dominant right coronary stenosis. Eventually it was decided the Choice PT extra-support wire may have been creating enough wire bias where the calcified disease was creating an impasse in the vessel. Because of this a choice floppy wire was advanced. Despite multiple balloons still the vessel could not be traversed with the smallest balloons. A 3 mm x 12 mm lithotripsy balloon was advanced against the calcified lesion and pulsations were delivered which amazingly cracked the calcium and allowed further passage with further delivery. Once the lithotripsy was performed balloons could easily passed through and upsizing was performed. A 3.5 x 38 mm [place] frontier stent was placed in the mid dominant right coronary artery and deployed at 20 benita. An additional 3 mm x 38 mm [place] frontier stent was placed distal to the for stent yet still overlapping and deployed at 20 benita. An additional 2.75 x 15 mm [place] frontier stent was placed distal to the 3 mm stent and deployed at 16 benita. The balloon was brought back and deployed at 20 benita throughout the 3 mm stent. An additional 3.5 x 26 mm [place] frontier stent was placed proximal to the 3.5 mm stent and deployed at 24 benita. The balloon was advanced and deployed at 24 benita throughout the proximal and mid right coronary artery. Excellent angiographic results were obtained with BILLY-3 flow being present before and after the procedure. The end the procedure the apparatus was removed the sheath was removed and hemostasis was achieved using TR banding patient was transferred to the postop holding area in stable condition ANGIOGRAPHIC RESULTS The left main artery Normal The left anterior descending artery Has proximal and mid vessel calcified 20% stenoses. The circumflex artery Nondominant with mild proximal 10 to 20% nonflow limiting stenosis The right coronary artery So large dominant vessel with proximal 30% stenosis in the mid vessel calcified 90% stenosis followed by an additional calcified eccentric greater than 90% stenosis with additional distal 40% calcified stenoses. The STAFFORD ventriculogram reveals Not performed The left ventricular end-diastolic pressure Not measured IMPRESSION Critical calcific disease in the proximal and mid dominant right coronary artery which was much worse than appreciated by angiography as evidenced by the above description and inability to pass 10 different balloons through the lesion Successful intravascular lithotripsy reducing critical calcific stenosis to allow passage of drug-eluting stents which reduced the critical disease to 0% using 4 contiguous drug-eluting stents PLAN 1. Dual antiplatelet therapy 2. Standard therapy for systolic heart failure 3. Avoidance of tobacco products 4. Tender therapy for ischemic heart disease 5. Cardiac rehabilitation 6. LDL less than 55 to be achieved with high intensity statin Electronically signed by : Chester Colmenares MD 08/27/2023 18:10:11
--- NOTE | 2023-08-27 12:46 | P.PN_ITS ---
Subjective Subjective Date: 08/27/23 Time: 08:30 Principal diagnosis: HFrEF, Afib with RVR Interval history: This is an 82-year-old gentleman who presented to the emergency department complaints of chest pain. The patient was found to be in atrial fibrillation with RVR and having acute exacerbation of HFrEF. The patient was rate controlled with the metoprolol and given Lasix for his fluid overload. The patient states that he is feeling much better today. He states his chest pain and pressure have resolved. He is still short of breath with exertion but this is also improved. He denies any lower extremity edema. He denies any fever, chills, nausea, vomiting or diarrhea. Exam Data for Last 24 hours Vital signs and Labs for Last 24 Hours: Temp Pulse Resp BP Pulse Ox O2 Del Method O2 Flow Rate 98.0 F 78 20 114/73 96 Room Air 2 08/27/23 11:33 08/27/23 11:08/27/23 11:08/27/23 11:08/27/23 11:08/27/23 11:08/26/23 16:40 Laboratory Results - last 24 hr 08/26/23 10:49: NT-Pro-B Natriuret Pep 9180 H 08/26/23 14:20: Troponin I 0.28 H 08/26/23 17:22: Lactate 1.3, Troponin I 0.50 H 08/27/23 05:50: WBC 13.4 H, RBC 4.71, Hgb 15.6, Hct 46.8, MCV 99.4 H, MCH 33.1 H , MCHC 33.3, RDW 13.8, Plt Count 189, MPV 9.9, Neut % (Auto) 83.6 H, Lymph % (Auto) 9.3 L, [place] % (Auto) 5.8, Eos % (Auto) 1.1, Baso % (Auto) 0.2, Neut # (Auto) 11.2 H, Lymph # (Auto) 1.2, [place] # (Auto) 0.8, Eos # (Auto) 0.2, Baso # (Auto) 0.0, Sodium 132 L, Potassium 4.6, Chloride 102, Carbon Dioxide 28, Anion Gap 6.6, BUN 33 H, Creatinine 1.20, Estimated Creat Clear 39, Estimated GFR 58 L , Est GFR ( Amer) 70 D, Glucose 91 D, Calcium 8.3 L, Triglycerides 86, Cholesterol 155, LDL Cholesterol Direct 83.46 L, VLDL Cholesterol 17, HDL Cholesterol 45, Cholesterol/HDL Ratio 3.4, TSH 2.11, Free T4 2.55 H I & O for Last 24 hours: Intake & Output 08/24/23 08/25/23 08/26/23 08/27/23 23:59 23:59 23:59 23:59 Intake Total 210 / 210 Output Total 200 / 200 900 / 900 Balance Weight 133 lb 7 oz 133 lb 7.062 oz Narrative: EKG is atrial fibrillation with RVR, right bundle branch block, diffuse ST and T wave abnormalities. Constitutional Constitutional: no acute distress and average body habitus *Routine HEENT Exam Head: Present normocephalic and atraumatic ENT: Present mucous membranes moist *Routine Neck Exam Neck: Present supple, full ROM and normal carotid upstroke; Absent JVD, carotid bruit or lymphadenopathy *Routine Respiratory Exam Respiratory: Present CTA bilaterally, normal respiratory effort, able to speak in complete sentences and symmetric chest movement *Routine Cardiovascular Exam Cardiovascular: Present Normal S1, Normal S2 and irregularly irregular; Absent murmur or gallop *Routine Abdominal Exam Abdominal: Present soft and normoactive bowel sounds; Absent tenderness, distended or organomegaly *Routine Extremities Exam Extremities: Present full ROM, pulses intact and normal capillary refill; Absent cyanosis, clubbing or edema *Routine Skin Exam Skin: Present intact and warm; Absent erythema *Routine Neurological Exam Neurological: Present alert, oriented X3 and CN II-XII intact; Absent sensory deficit or motor deficit Routine Psychiatric Exam Psychiatric: Present normal affect Progress Note: A&P Assessment and plan (1) HFrEF (heart failure with reduced ejection fraction): Status: Acute (2) Dilated cardiomyopathy: Status: Acute (3) Atrial fibrillation with RVR: Status: Acute (4) Presence of biventricular AICD: Status: Acute (5) CAD in [place] artery: Status: Acute (6) Hypertension: Status: Acute (7) Hyperlipidemia: Status: Acute (8) Shortness of Breath: Status: Acute (9) Severe mitral regurgitation: Status: Acute (10) Atrial fibrillation: Status: Acute Assessment and Plan Assessment and Plan for All Diagnoses:: Plan: 1. 1. This is an 82-year-old gentleman who presented to the emergency department complaints of chest pain and shortness of breath. Initially was felt that the patient was having a STEMI, but on further review of the EKG the patient was not having a STEMI. He was V pacing with an underlying atrial fibrillation with RVR and diffuse ST and T wave abnormalities. The STEMI alert was canceled. The patient was given metoprolol 2.5 mg IV x 1 dose and his rate did slow down. At that point it was much clear that the patient was in atrial fibrillation with RVR and V pacing. 2. The patient does have an elevated troponin consistent with a non-STEMI. Will plan to proceed with left cardiac catheterization to evaluate his coronary arteries. The patient does have known coronary artery disease that was evaluated in 2017. At that time it was mild and nonocclusive. Now he is having a non-STEMI and this should be reevaluated. 3. The patient has been educated the risk and benefits of proceeding with left cardiac catheterization. The patient verbalized understanding and is agreeable in proceeding with the procedure. 4. The patient will be n.p.o. in preparation for left cardiac catheterization. 5. The patient does have a history of dilated cardiomyopathy and is status post BiV AICD placement. Preliminary echocardiogram shows an ejection fraction around 20%. 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 He has had worsening of his cardiomyopathy which may be due to underlying ischemic coronary artery disease. 6. The patient does have atrial fibrillation. He is now rate controlled. Will increase his dose of Coreg to 6.25 mg p.o. twice daily. 7. The patient is on long-term anticoagulation with Eliquis. 8. Continue diuresis with IV Lasix 40 mg twice daily for HFrEF. 9. Will start Jardiance 10 mg daily, Aldactone 25 mg daily and Entresto 24/26 mg p.o. twice daily for HFrEF. 10. His blood pressure is well-controlled. 11. His LDL goal is less than 55. He is on pravastatin. Will get a lipid panel in the morning. 12. Further recommendations will be made pending the patient's response to treatment and the results of his left cardiac catheterization today. Thank you for the opportunity to help participate in the care of this patient. All recommendations and orders are per Dr. Hubbard.
[2023-08-27] MEDS: HEPARIN 1,000 UNITS/500ML NS (CATH LAB) 3000 UNIT IV (13:35)
[2023-08-27] MEDS: 0.9 % SODIUM CHLORIDE 500 ML 25 ML IV (13:35)
[2023-08-27] MEDS: diphenhydrAMINE 50MG/ML VIAL 50 MG IV (13:36)
[2023-08-27] MEDS: NITROGLYCERIN 800MCG/8ML SYR (CATH LAB) 800 MCG IA (13:36)
[2023-08-27] MEDS: LIDOCAINE 1% 10ML MDV 20 ML IJ (13:36)
[2023-08-27] MEDS: HEPARIN 1,000 UNITS/ML 10ML VIAL (CATH LAB) 10000 UNIT IV (13:36)
[2023-08-27] MEDS: VERAPAMIL 2.5MG/ML 2ML VIAL 2.5 MG IV (13:36)
[2023-08-27] MEDS: FENTANYL 100MCG/2ML VIAL 50 MCG IV (15:08)
[2023-08-27] MEDS: MIDAZOLAM HCL 1MG/1ML 5ML VIAL 1 MG IV (15:08)
[2023-08-27] MEDS: CLOPIDOGREL 300MG TABLET 600 MG PO (15:16)
[2023-08-27] MEDS: IOPAMIDOL-370 (76%);100ML BOTTLE 150 ML IV (15:39)
[2023-08-27 15:41] LABS: CATHL Activated Clotting Time 214 SEC (74-125)
[2023-08-27 15:42] LABS: CATHL Activated Clotting Time > 400 SEC (74-125)
[2023-08-27] MEDS: EMPAGLIFLOZIN 10MG TABLET 10 MG PO (15:46)
[2023-08-27] MEDS: SACUBITRIL/VALSARTAN 24-26MG TABLET 1 EACH PO (15:46)
[2023-08-27] MEDS: SPIRONOLACTONE 25MG TABLET 25 MG PO (15:46)
[2023-08-27 21:25] LABS: Basophils % 0.2 % (0.1-2.0); Eosinophils # 0.2 K/mm3 (0.0-0.4); Eosinophils % 1.5 % (0.1-12.0); Lymphocytes # 0.9 K/mm3 (0.7-4.5); Lymphocytes % 5.8 % (10-50); Mean Corpuscular Hemoglobin 33.1 pg (27.0-31.2); Mean Corpuscular Volume 97.4 fl (80-94); Mean Platelet Volume 9.9 fl (7.4-10.4); Monocytes # 0.6 K/mm3 (0.1-1.0); Monocytes % 4.2 % (1.7-9.3); Neutrophils # 13.2 K/mm3 (1.8-7.8); Neutrophils % 88.2 % (37.0-80.0); Platelet Count 183 K/mm3 (142-424); Red Blood Count 4.82 M/mm3 (4.60-6.20); Red Cell Distribution Width 13.9 % (11.5-17.5); White Blood Count 14.9 K/mm3 (4.8-10.8)
[2023-08-27 21:26] LABS: MANUAL DIFFERENTIAL MANUAL DIFFERENTIAL (MANUAL DIFF)
[2023-08-27 21:36] LABS: Acanthocytes 1+; Lymphocytes % 7 % (10-50); Monocytes % 3 % (2-9); Neutrophils % 90 % (42-76); Platelet Estimate Normal; Total Cells Counted 100
[2023-08-27] MEDS: PRAVASTATIN 40 MG PO (21:56)
[2023-08-27] MEDS: APIXABAN 5 MG PO (21:56)
[2023-08-27] MEDS: TAMSULOSIN 0.4 MG 0.400000000000000022 MG PO (21:56)
--- NOTE | 2023-08-27 22:00 | P.PN_ITS ---
Subjective *Date: 08/27/23 *Time: 22:00 Interval history: Mr. Mason chest pain-free today. Denies any nausea or vomiting. -1 L overnight. Cardiology evaluating for left heart cath today. Kidney function stable. Making adequate urine. Stable on room air. Medical Exam Vital signs and Labs for Last 24 Hours: Vital Signs Temp Pulse Pulse Resp BP Pulse Ox O2 Del Method 08/27/23 20:00 97.9 F 78 17 108/56 L 97 Room Air 08/27/23 19:00 Room Air 08/27/23 18:30 90 17 100/55 L 95 Room Air 08/27/23 18:00 74 104/55 L 93 L Room Air 08/27/23 17:30 75 18 122/87 91 L Room Air 08/27/23 17:00 70 17 117/73 95 Room Air 08/27/23 17:00 Room Air 08/27/23 16:00 100 H 08/27/23 16:30 89 18 127/68 91 L Room Air 08/27/23 16:15 94 H 16 123/82 95 Room Air 08/27/23 16:00 95 H 18 122/77 91 L Room Air 08/27/23 15:45 97.7 F 98 H 17 117/75 95 Room Air 08/27/23 12:00 80 08/27/23 15:30 97 H 18 110/78 91 L Nasal Cannula 08/27/23 15:25 97 H 19 115/81 91 L Nasal Cannula 08/27/23 15:20 98 H 19 117/84 92 L Nasal Cannula 08/27/23 15:20 102 H 08/27/23 15:15 97.6 F 102 H 19 113/79 90 L Room Air 08/27/23 08:00 75 08/27/23 11:33 98.0 F 78 20 114/73 96 Room Air 08/27/23 11:00 Room Air 08/27/23 08:00 97 H 93 L Room Air 08/27/23 09:00 Room Air 08/27/23 08:00 97.6 F 97 H 16 121/73 93 L Room Air 08/27/23 06:13 Room Air 08/27/23 04:00 98.4 F 72 17 97/58 L 95 Room Air 08/27/23 04:00 70 08/27/23 04:46 Room Air 08/27/23 03:00 Room Air 08/27/23 01:00 Room Air 08/27/23 00:00 79 08/27/23 00:00 98.2 F 65 17 102/61 L 92 L Room Air 08/26/23 23:00 Room Air Intake and Output 08/27/23 08/27/23 08/27/23 07:59 15:59 23:59 Intake Total 270 / 270 Output Total 900 / 2200 1300 / 2200 Balance -900 / -1930 -1030 / -1930 Intake: Intake, Oral Amount 270 / 270 Output: Output, Urine Amount 900 / 2200 1300 / 2200 Other: Number of Unmeasured Voids 0 0 Weight 60.528 kg Patient Weight 08/27/23 23:59 Weight 60.528 kg Laboratory Results - last 24 hr 08/27/23 05:50: WBC 13.4 H, RBC 4.71, Hgb 15.6, Hct 46.8, MCV 99.4 H, MCH 33.1 H , MCHC 33.3, RDW 13.8, Plt Count 189, MPV 9.9, Neut % (Auto) 83.6 H, Lymph % (Auto) 9.3 L, [place] % (Auto) 5.8, Eos % (Auto) 1.1, Baso % (Auto) 0.2, Neut # (Auto) 11.2 H, Lymph # (Auto) 1.2, [place] # (Auto) 0.8, Eos # (Auto) 0.2, Baso # (Auto) 0.0, Sodium 132 L, Potassium 4.6, Chloride 102, Carbon Dioxide 28, Anion Gap 6.6, BUN 33 H, Creatinine 1.20, Estimated Creat Clear 39, Estimated GFR 58 L , Est GFR ( Amer) 70 D, Glucose 91 D, Calcium 8.3 L, Triglycerides 86, Cholesterol 155, LDL Cholesterol Direct 83.46 L, VLDL Cholesterol 17, HDL Cholesterol 45, Cholesterol/HDL Ratio 3.4, TSH 2.11, Free T4 2.55 H 08/27/23 15:06: Activated Clotting Time > 400 H* 08/27/23 15:43: Activated Clotting Time 214 H* D 08/27/23 21:10: WBC 14.9 H, RBC 4.82, Hgb 16.0, Hct 47.0, MCV 97.4 H, MCH 33.1 H , MCHC 34.0, RDW 13.9, Plt Count 183, MPV 9.9, Neut % (Auto) 88.2 H, Lymph % (Auto) 5.8 L, [place] % (Auto) 4.2, Eos % (Auto) 1.5, Baso % (Auto) 0.2, Neut # (Auto) 13.2 H, Lymph # (Auto) 0.9, [place] # (Auto) 0.6, Eos # (Auto) 0.2, Baso # (Auto) 0.0, Total Counted 100, Neutrophils % (Manual) 90 H, Lymphocytes % (Manual) 7 L, Monocytes % (Manual) 3, Platelet Estimate Normal, Acanthocytes (Spur) 1+ I & O for Labs for Last 24 Hours: Intake & Output 08/24/23 08/25/23 08/26/23 08/27/23 23:59 23:59 23:59 23:59 Intake Total 210 / 210 270 / 270 Output Total 200 / 200 2200 / 2200 Balance -1929 / -1929 Weight 60.526 kg 60.528 kg Constitutional: Present no acute distress, average body habitus and chronically ill appearing Head: Present atraumatic and normocephalic ENT: Present normal exam Neck: Present normal inspection Respiratory: Present normal respiratory effort; Absent rhonchi, wheezes or crackles Cardiac: Present Reg Rate and Rhythm GI: Present soft and normal bowel sounds; Absent distention or tenderness Extremities: Present normal inspection and full ROM Skin: Present intact; Absent erythema Neuro: Present Grossly Intact, alert, awake, oriented x 3 and moves all extremities Assessment and Plan *Assessment and plan (1) HFrEF (heart failure with reduced ejection fraction): Status: Acute Category: Medical Code(s): I50.20 - Unspecified systolic (congestive) heart failure (2) CHF exacerbation: Status: Acute Qualifiers: Heart failure type: systolic Qualified Code(s): I50.23 - Acute on chronic systolic (congestive) heart failure Category: Medical Code(s): I50.9 - Heart failure, unspecified (3) Chest pain: Status: Acute Qualifiers: Chest pain type: unspecified Qualified Code(s): R07.9 - Chest pain, unspecified Category: Medical Code(s): R07.9 - Chest pain, unspecified (4) Presence of biventricular AICD: Status: Acute Category: Surgical Code(s): Z95.810 - Presence of automatic (implantable) cardiac defibrillator (5) Hypertension: Status: Acute Qualifiers: Hypertension type: primary hypertension Qualified Code(s): I10 - Essential (primary) hypertension Category: Medical Code(s): I10 - Essential (primary) hypertension (6) Hyperlipidemia: Status: Acute Qualifiers: Hyperlipidemia type: mixed hyperlipidemia Qualified Code(s): E78.2 - Mixed hyperlipidemia Category: Medical Code(s): E78.5 - Hyperlipidemia, unspecified (7) Atrial fibrillation with RVR: Status: Acute Category: Medical Code(s): I48.91 - Unspecified atrial fibrillation Plan 82-year-old gentleman who presented with chest pain. Significant cardiac history. ER consulted medicine for admission given concern for CHF exacerbation. Medicine agreed to admit. Cardiology consulted, discussed case today, given patient's symptoms, recommend left heart cath. Continues to requir e inpatient management. Problems addressed as follows: Acute on chronic heart failure with reduced ejection fraction BiV AICD in situ Angina A-fib -Cardiology consulted, appreciate their recommendations. Received 2.5 mg IV dose metoprolol with improvement in heart rate in the ER. Patient's heart rate currently is A-fib with V pacing. No rosalinda STEMI in the ER. Serial troponin increased to 0.28 and then 0.5. Planning to take patient for left heart cath today.. -Increase carvedilol to 6.25 mg twice daily. continue amiodarone 200 mg daily, continue apixaban 5 mg twice daily. Continue aspirin 81 mg daily. -Echo ordered with pulmonary read showing reduced ejection fraction approximately 20%. Formal read pending. -Responding to Lasix IV once, continue Lasix 40 mg IV twice daily for now -Cardiology recommends initiating Jardiance 10 mg daily, Aldactone 25 mg daily, and Entresto 24/26 mg p.o. twice daily - His LDL goal is less than 55. He is on pravastatin. Will get a lipid panel i n the morning. -Creatinine 1.2, BUN 33, calcium 4.8. Repeat monitoring in the morning with CMP, magnesium, CBC. Hyperlipidemia: Continue home pravastatin 40 mg nightly Hypothyroid: Continue levothyroxine 50 mcg daily. TSH controlled at 2.11 BPH: Continue tamsulosin 0.4 mg daily Full code cardiac diet, NPO after midnight eliquis BID
[2023-08-28] VITALS: BP 87/48; PULSE 56; PULSE 80; RESP 17; TEMP 36.9; O2SAT 95
[2023-08-28 04:00] VITALS: BP 94/52; PULSE 80; PULSE 85; RESP 17; TEMP 36.6; O2SAT 95; BMI 17.9
[2023-08-28 06:36] LABS: Basophils % 0.2 % (0.1-2.0); Eosinophils # 0.2 K/mm3 (0.0-0.4); Eosinophils % 1.5 % (0.1-12.0); Hematocrit 46.4 % (42.0-52.0); Hemoglobin 15.8 g/dL (14.1-18.0); Lymphocytes # 0.9 K/mm3 (0.7-4.5); Lymphocytes % 7.5 % (10-50); Mean Corpuscular Hemoglobin 33.1 pg (27.0-31.2); Mean Corpuscular Volume 97.3 fl (80-94); Mean Platelet Volume 9.8 fl (7.4-10.4); Monocytes # 0.9 K/mm3 (0.1-1.0); Monocytes % 6.9 % (1.7-9.3); Neutrophils # 10.7 K/mm3 (1.8-7.8); Neutrophils % 83.9 % (37.0-80.0); Platelet Count 181 K/mm3 (142-424); Red Blood Count 4.77 M/mm3 (4.60-6.20); White Blood Count 12.7 K/mm3 (4.8-10.8)
[2023-08-28 06:42] LABS: Alanine Aminotransferase 29 U/L (12-78); Alkaline Phosphatase 70 U/L (38-126); Aspartate Amino Transferase 42 U/L (17-59); Bilirubin,Direct 0.1 mg/dl (0.0-0.4); Bilirubin,Indirect 0.8 mg/dL (0.0-0.9); Bilirubin,Total 0.9 mg/dl (0.2-1.3); Bilirubin,Unconjugated 0.8 mg/dL (0.0-1.1); Blood Urea Nitrogen 39 mg/dl (9-20); Calcium 7.9 mg/dl (8.4-10.2); Carbon Dioxide 28 mmol/L (22.0-30.0); Chloride 100 mmol/L (98-107); Chol/HDL Ratio 3.6 (1-3.5); Cholesterol 156 mg/dl (140-200); Creatinine Clearance Estimated 33 mL/min (50-200); Estimated Glomerular Filt Rate 48 ml/min (>60); GFR (African American) 58 ML/MIN (>60); Glucose 112 mg/dl (74-100); HDL Cholesterol 43 mg/dl (40-60); Triglycerides 89 mg/dl (30-150); VLDL Cholesterol 18 mg/dL (0-40)
[2023-08-28 06:43] LABS: Albumin Level 3.6 g/dl (3.5-5.0); Sodium 131 mmol/L (136-145); Total Protein,Serum 6.5 g/dl (6.3-8.2)
[2023-08-28] MEDS: LEVOTHYROXINE 50 MCG PO (06:49)
[2023-08-28 06:52] LABS: Direct LDL Cholesterol 90.08 mg/dL (100-129)
--- NOTE | 2023-08-28 07:51 | EXP.DC.SUM ---
General Admission date:: 08/26/23 Discharge date: 08/28/23 HPI HPI HPI: Mr. Mason is an 82-year-old male with history of CHF, BiV AICD, hypertension, hyperlipidemia. Presented to the ER due to complaint of some chest pain. Improved by the time he got to the ER. History of A-fib, CHF, hypertension, hyperlipidemia. Over the past few days he has had intermittent episodes of shortness of breath and chest pressure. Today he had a worsening episode that was substernal. Worse with exertion but improved at rest. Denies that he feels short of breath more acutely but is short of breath chronically. Denies any nausea or vomiting. On eval in the ER, concern for elevated BNP at 9100, initial troponin 0.02. Patient was given a dose of metoprolol with improvement in his heart rate. Initiated on diuresis. Cardiology consulted. Recommended the patient be admitted for further eval and workup. After arriving to the floor, patient is on room air. Denies any chest pain at this time. Showing response to diuresis with good urine output. Hospital Course Hospital Course Hospital Course: 82-year-old gentleman who presented with chest pain. Significant cardiac history. ER consulted medicine for admission given concern for CHF exacerbation. Medicine agreed to admit. Cardiology consulted, patient was taken for heart cath and found to have disease of the RCA. Stenting performed with improvement in symptoms. Stable to discharge home. Adjustments made to medications. Problems addressed as follows during admission. Acute on chronic heart failure with reduced ejection fraction BiV AICD in situ Angina A-fib -Cardiology consulted, appreciate their recommendations. Received 2.5 mg IV dose metoprolol with improvement in heart rate in the ER. Patient's heart rate currently is A-fib with V pacing. No rosalinda STEMI in the ER. Serial troponin increased to 0.28 and then 0.5. Decision was made to take patient for heart cath on 08/27/2023. Found to have severe RCA disease necessitating 4 stents and lithotripsy. Tolerated procedure well. Initiated on Plavix and aspirin for dual antiplatelet therapy. Will continue triple therapy with Eliquis, aspirin, Plavix for 30 days and will discontinue aspirin thereafter. Patient is known history of dilated cardiomyopathy and is status post BiV AICD placement. Currently being managed by his residential interior designer Dr. Peter with [facility]. Patient's medications were adjusted as follows: Increase carvedilol to 6.25 mg twice daily. Continued his amiodarone 200 mg daily. Initiated on Jardiance 10 mg daily, Aldactone 25 mg daily, and Entresto 24/26 mg twice daily for his heart failure. Resume Lasix 20 mg daily per home regimen. Diuresed well and is -2-1/2 L for admission. Recommend following up with cardiology in a week at [facility], cannot further discussion about further follow-ups between [facility] cardiology and [facility] at that time. Hyperlipidemia: Continue home pravastatin 40 mg nightly. LDL goal less than 55. LDL is 90 during admission. Hypothyroid: Continue levothyroxine 50 mcg daily. TSH controlled at 2.11 BPH: Continue tamsulosin 0.4 mg daily Stable for discharge home. Spent 30 minutes in discharge counseling, documentation, chart review, and direct care with patient. Exam Data for Last 24 hours Vital signs and Labs for Last 24 Hours: Temp Pulse Resp BP Pulse Ox O2 Del Method O2 Flow Rate 97.9 F 85 17 94/52 L 95 Room Air 2 08/28/23 04:00 08/28/23 04:00 08/28/23 04:00 08/28/23 04:00 08/28/23 04:00 08/28/23 04:00 08/26/23 16:40 Laboratory Results - last 24 hr 08/27/23 15:06: Activated Clotting Time > 400 H* 08/27/23 15:43: Activated Clotting Time 214 H* D 08/27/23 21:10: WBC 14.9 H, RBC 4.82, Hgb 16.0, Hct 47.0, MCV 97.4 H, MCH 33.1 H, MCHC 34.0, RDW 13.9, Plt Count 183, MPV 9.9, Neut % (Auto) 88.2 H, Lymph % (Auto) 5.8 L, [place] % (Auto) 4.2, Eos % (Auto) 1.5, Baso % (Auto) 0.2, Neut # (Auto) 13.2 H, Lymph # (Auto) 0.9, [place] # (Auto) 0.6, Eos # (Auto) 0.2, Baso # (Auto) 0.0, Total Counted 100, Neutrophils % (Manual) 90 H, Lymphocytes % (Manual) 7 L, Monocytes % (Manual) 3, Platelet Estimate Normal, Acanthocytes (Spur) 1+ 08/28/23 05:49: WBC 12.7 H, RBC 4.77, Hgb 15.8, Hct 46.4, MCV 97.3 H, MCH 33.1 H, MCHC 34.0, RDW 14.0, Plt Count 181, MPV 9.8, Neut % (Auto) 83.9 H, Lymph % (Auto) 7.5 L, [place] % (Auto) 6.9, Eos % (Auto) 1.5, Baso % (Auto) 0.2, Neut # (Auto) 10.7 H, Lymph # (Auto) 0.9, [place] # (Auto) 0.9, Eos # (Auto) 0.2, Baso # (Auto) 0.0, Sodium 131 L, Potassium 4.0, Chloride 100, Carbon Dioxide 28, Anion Gap 7.0, BUN 39 H, Creatinine 1.40 H, Estimated Creat Clear 33, Estimated GFR 48 L, Est GFR ( Amer) 58 L, Glucose 112 H D, Calcium 7.9 L, Total Bilirubin 0.9, Direct Bilirubin 0.1, Conjugated Bilirubin 0.0, Indirect Bilirubin 0.8, Unconjugated Bilirubin 0.8, AST 42, ALT 29 D, Alkaline Phosphatase 70, Total Protein 6.5, Albumin 3.6, Triglycerides 89, Cholesterol 156, LDL Cholesterol Direct 90.08 L, VLDL Cholesterol 18, HDL Cholesterol 43, Cholesterol/HDL Ratio 3.6 H I & O for Last 24 hours: Intake & Output 08/25/23 08/26/23 08/27/23 08/28/23 23:59 23:59 23:59 23:59 Intake Total 210 / 210 270 / 390 120 / 120 Output Total 200 / 200 2200 / 2300 500 / 500 Balance -1930 / -1910 -380 / -380 Weight 60.526 kg 60.528 kg 59.874 kg Constitutional Constitutional: no acute distress, thin, chronically ill appearing and cooperative *Routine HEENT Exam Head: Present normocephalic Eye: Present EOMI and PERRL ENT: Present mucous membranes moist *Routine Neck Exam Neck: Present supple; Absent lymphadenopathy *Routine Respiratory Exam Respiratory: Present CTA bilaterally; Absent rhonchi or wheezes *Routine Cardiovascular Exam Cardiovascular: Present murmur and irregularly irregular *Routine Abdominal Exam Abdominal: Present soft and normoactive bowel sounds; Absent tenderness *Routine Extremities Exam Extremities: Absent cyanosis, clubbing or edema Comments: No active bleeding from right radial insertion site, small hematoma *Routine Skin Exam Skin: Present warm; Absent rash *Routine Neurological Exam Neurological: Present alert, oriented X3 and moving all extremities; Absent altered mental status Results Data Completed and Pending Labs on day of discharge: Labs from last 24 hours 08/28/23 08/27/23 08/27/23 05:49 21:10 15:43 WBC 12.7 H 14.9 H RBC 4.77 4.82 Hgb 15.8 16.0 Hct 46.4 47.0 MCV 97.3 H 97.4 H MCH 33.1 H 33.1 H MCHC 34.0 34.0 RDW 14.0 13.9 Plt Count 181 183 MPV 9.8 9.9 Neut % (Auto) 83.9 H 88.2 H Lymph % (Auto) 7.5 L 5.8 L [place] % (Auto) 6.9 4.2 Eos % (Auto) 1.5 1.5 Baso % (Auto) 0.2 0.2 Neut # (Auto) 10.7 H 13.2 H Lymph # (Auto) 0.9 0.9 [place] # (Auto) 0.9 0.6 Eos # (Auto) 0.2 0.2 Baso # (Auto) 0.0 0.0 Total Counted 100 Neutrophils % (Manual) 90 H Lymphocytes % (Manual) 7 L Monocytes % (Manual) 3 Platelet Estimate Normal Acanthocytes (Spur) 1+ Activated Clotting Time 214 H* D Sodium 131 L Potassium 4.0 Chloride 100 Carbon Dioxide 28 Anion Gap 7.0 BUN 39 H Creatinine 1.40 H Estimated Creat Clear 33 Estimated GFR 48 L Est GFR ( Amer) 58 L Glucose 112 H D Calcium 7.9 L Total Bilirubin 0.9 Direct Bilirubin 0.1 Conjugated Bilirubin 0.0 Indirect Bilirubin 0.8 Unconjugated Bilirubin 0.8 AST 42 ALT 29 D Alkaline Phosphatase 70 Total Protein 6.5 Albumin 3.6 Triglycerides 89 Cholesterol 156 LDL Cholesterol Direct 90.08 L VLDL Cholesterol 18 HDL Cholesterol 43 Cholesterol/HDL Ratio 3.6 H 08/27/23 15:06 WBC RBC Hgb Hct MCV MCH MCHC RDW Plt Count MPV Neut % (Auto) Lymph % (Auto) [place] % (Auto) Eos % (Auto) Baso % (Auto) Neut # (Auto) Lymph # (Auto) [place] # (Auto) Eos # (Auto) Baso # (Auto) Total Counted Neutrophils % (Manual) Lymphocytes % (Manual) Monocytes % (Manual) Platelet Estimate Acanthocytes (Spur) Activated Clotting Time > 400 H* Sodium Potassium Chloride Carbon Dioxide Anion Gap BUN Creatinine Estimated Creat Clear Estimated GFR Est GFR ( Amer) Glucose Calcium Total Bilirubin Direct Bilirubin Conjugated Bilirubin Indirect Bilirubin Unconjugated Bilirubin AST ALT Alkaline Phosphatase Total Protein Albumin Triglycerides Cholesterol LDL Cholesterol Direct VLDL Cholesterol HDL Cholesterol Cholesterol/HDL Ratio DS: Diagnosis Discharge Diagnosis (1) HFrEF (heart failure with reduced ejection fraction): Status: Acute Code(s): I50.20 - Unspecified systolic (congestive) heart failure (2) CHF exacerbation: Status: Acute Code(s): I50.9 - Heart failure, unspecified Qualifiers: Heart failure type: systolic Qualified Code(s): I50.23 - Acute on chronic systolic (congestive) heart failure (3) Chest pain: Status: Acute Code(s): R07.9 - Chest pain, unspecified Qualifiers: Chest pain type: unspecified Qualified Code(s): R07.9 - Chest pain, unspecified (4) Presence of biventricular AICD: Status: Acute Code(s): Z95.810 - Presence of automatic (implantable) cardiac defibrillator (5) Hypertension: Status: Acute Code(s): I10 - Essential (primary) hypertension Qualifiers: Hypertension type: primary hypertension Qualified Code(s): I10 - Essential (primary) hypertension (6) Hyperlipidemia: Status: Acute Code(s): E78.5 - Hyperlipidemia, unspecified Qualifiers: Hyperlipidemia type: mixed hyperlipidemia Qualified Code(s): E78.2 - Mixed hyperlipidemia (7) Atrial fibrillation with RVR: Status: Acute Code(s): I48.91 - Unspecified atrial fibrillation Meds Home Medications and Allergies Home Medications Medication Instructions Recorded Confirmed Type amiodarone 200 mg tablet 200 mg PO DAILY 06/14/18 08/27/23 History levothyroxine 50 mcg tablet 50 mcg PO AM 09/01/19 08/27/23 History tamsulosin 0.4 mg capsule 0.4 mg PO HS 09/01/19 08/26/23 History apixaban 5 mg tablet 5 mg PO BID 09/18/21 08/26/23 History aspirin 81 mg chewable tablet 81 mg PO DAILY 30 days #30 tabs 08/28/23 Rx carvedilol 6.25 mg tablet 6.25 mg PO BID 30 days #60 tabs 08/28/23 Rx clopidogrel 75 mg tablet 75 mg PO DAILY 30 days #30 tabs 08/28/23 Rx empagliflozin 10 mg tablet 10 mg PO DAILY 30 days #30 tabs 08/28/23 Rx (Jardiance) furosemide 20 mg tablet 20 mg PO DAILY Swelling 30 days 08/28/23 08/27/23 Rx #0 tabs pravastatin 40 mg tablet 40 mg PO HS 30 days #30 tabs 08/28/23 08/27/23 Rx sacubitril 24 mg-valsartan 26 mg 1 tab PO BID 30 days #60 tabs 08/28/23 Rx tablet (Entresto) spironolactone 25 mg tablet 25 mg PO DAILY 30 days #30 tabs 08/28/23 Rx New Prescriptions to Start Prescriptions: aspirin Alonzo Nieves carvedilol Alonzo Nieves clopidogrel Alonzo Nieves empagliflozin [Jardiance] Alonzo Nieves sacubitril-valsartan [Entresto] Alonzo Nieves spironolactone Alonzo Nieves Allergies Allergy/AdvReac Type Severity Reaction Status Date / Time No Known Allergies Allergy Verified 10/02/19 15:22 Discharge Plan Disposition Patient Disposition: Home, Self-Care Condition: Fair Follow up Plan Follow up with: Navin Knott MD [Primary Care Provider] - 09/01/23 10:00 am Chester Colmenares MD [Staff Physician] - 09/03/23 1:45 pm Prescriptions/Medication Reconciliation: New carvedilol 6.25 mg Tablet 6.25 mg PO BID 30 Days Qty: 60 0RF clopidogrel 75 mg Tablet 75 mg PO DAILY 30 Days Qty: 30 0RF aspirin 81 mg Tablet,Chewable 81 mg PO DAILY 30 Days Qty: 30 0RF Jardiance 10 mg Tablet 10 mg PO DAILY 30 Days Qty: 30 0RF Entresto 24-26 mg Tablet 1 tab PO BID 30 Days Qty: 60 0RF spironolactone 25 mg Tablet 25 mg PO DAILY 30 Days Qty: 30 0RF Continued levothyroxine 50 mcg tablet 50 mcg PO AM tamsulosin 0.4 mg capsule 0.4 mg PO HS amiodarone 200 MG tablet 200 mg PO DAILY apixaban 5 MG tablet 5 mg PO BID Changed pravastatin 40 MG tablet 40 mg PO HS 30 Days Qty: 30 0RF furosemide 20 mg tablet 20 mg PO DAILY 30 Days Qty: 0 0RF Discontinued carvedilol 3.125 MG tablet 3.125 mg PO BID cefdinir 300 mg capsule 300 mg PO BID Problem Reconciliation Problems Reviewed?: Yes Patient Discharge Instructions ACTIVITY: Continue current activity DIET: continue same diet and low fat, low cholesterol Patient Instructions: Congestive Heart Failure (Alternative Therapy), Heart Failure, DI for Cardiac Catheterization, DI for Surgical Site Infection Providers Primary Care Provider: Navin Knott Admit Provider: Alonzo Nieves Attending Provider: Alonzo Nieves
[2023-08-28 08:00] VITALS: BP 87/50; PULSE 103; PULSE 90; RESP 20; TEMP 35.8; O2SAT 95
[2023-08-28] MEDS: ASPIRIN 81MG CHEWABLE TABLET 81 MG PO (08:46)
[2023-08-28] MEDS: AMIODARONE 200MG TABLET 200 MG PO (08:46)
[2023-08-28] MEDS: APIXABAN 5 MG PO (08:47)
[2023-08-28] MEDS: CLOPIDOGREL 75MG TAB 75 MG PO (08:47)
--- NOTE | 2023-08-28 11:56 | EXP.CARD.PN ---
Subjective Subjective Date: 08/28/23 Time: 09:30 Principal diagnosis: HFrEF, Afib with RVR Interval history: This is an 82-year-old gentleman who was admitted to the hospital with atrial fibrillation with RVR and acute exacerbation of HFrEF. The patient also had a non-STEMI. He underwent left cardiac catheterization yesterday and had lithotripsy and 4 stents placed to his right coronary artery. The patient tolerated the procedure well. He will be on Plavix and aspirin for dual antiplatelet therapy. This morning he denies any chest pain or pressure. He denies any shortness of breath or edema. He denies any fever, chills, nausea, vomiting, diarrhea, PND or orthopnea. Exam Data for Last 24 hours Vital signs and Labs for Last 24 Hours: Temp Pulse Resp BP Pulse Ox O2 Del Method O2 Flow Rate 96.5 F L 103 H 20 87/50 L 95 Room Air 2 08/28/23 08:00 08/28/23 08:00 08/28/23 08:00 08/28/23 08:00 08/28/23 08:00 08/28/23 08:00 08/26/23 16:40 Laboratory Results - last 24 hr 08/27/23 15:06: Activated Clotting Time > 400 H* 08/27/23 15:43: Activated Clotting Time 214 H* D 08/27/23 21:10: WBC 14.9 H, RBC 4.82, Hgb 16.0, Hct 47.0, MCV 97.4 H, MCH 33.1 H, MCHC 34.0, RDW 13.9, Plt Count 183, MPV 9.9, Neut % (Auto) 88.2 H, Lymph % (Auto) 5.8 L, [place] % (Auto) 4.2, Eos % (Auto) 1.5, Baso % (Auto) 0.2, Neut # (Auto) 13.2 H, Lymph # (Auto) 0.9, [place] # (Auto) 0.6, Eos # (Auto) 0.2, Baso # (Auto) 0.0, Total Counted 100, Neutrophils % (Manual) 90 H, Lymphocytes % (Manual) 7 L, Monocytes % (Manual) 3, Platelet Estimate Normal, Acanthocytes (Spur) 1+ 08/28/23 05:49: WBC 12.7 H, RBC 4.77, Hgb 15.8, Hct 46.4, MCV 97.3 H, MCH 33.1 H, MCHC 34.0, RDW 14.0, Plt Count 181, MPV 9.8, Neut % (Auto) 83.9 H, Lymph % (Auto) 7.5 L, [place] % (Auto) 6.9, Eos % (Auto) 1.5, Baso % (Auto) 0.2, Neut # (Auto) 10.7 H, Lymph # (Auto) 0.9, [place] # (Auto) 0.9, Eos # (Auto) 0.2, Baso # (Auto) 0.0, Sodium 131 L, Potassium 4.0, Chloride 100, Carbon Dioxide 28, Anion Gap 7.0, BUN 39 H, Creatinine 1.40 H, Estimated Creat Clear 33, Estimated GFR 48 L, Est GFR ( Amer) 58 L, Glucose 112 H D, Calcium 7.9 L, Total Bilirubin 0.9, Direct Bilirubin 0.1, Conjugated Bilirubin 0.0, Indirect Bilirubin 0.8, Unconjugated Bilirubin 0.8, AST 42, ALT 29 D, Alkaline Phosphatase 70, Total Protein 6.5, Albumin 3.6, Triglycerides 89, Cholesterol 156, LDL Cholesterol Direct 90.08 L, VLDL Cholesterol 18, HDL Cholesterol 43, Cholesterol/HDL Ratio 3.6 H I & O for Last 24 hours: Intake & Output 08/25/23 08/26/23 08/27/23 08/28/23 23:59 23:59 23:59 23:59 Intake Total 210 / 210 270 / 390 240 / 240 Output Total 200 / 200 2200 / 2300 500 / 500 Balance -1930 / -1910 -260 / -260 Weight 133 lb 7 oz 133 lb 7.062 oz 132 lb Narrative: EKG is atrial fibrillation with RVR, right bundle branch block, diffuse ST and T wave abnormalities. Constitutional Constitutional: no acute distress and average body habitus *Routine HEENT Exam Head: Present normocephalic and atraumatic ENT: Present mucous membranes moist *Routine Neck Exam Neck: Present supple, full ROM and normal carotid upstroke; Absent JVD, carotid bruit or lymphadenopathy *Routine Respiratory Exam Respiratory: Present CTA bilaterally, normal respiratory effort, able to speak in complete sentences and symmetric chest movement *Routine Cardiovascular Exam Cardiovascular: Present Normal S1, Normal S2 and irregularly irregular; Absent murmur or gallop *Routine Abdominal Exam Abdominal: Present soft and normoactive bowel sounds; Absent tenderness, distended or organomegaly *Routine Extremities Exam Extremities: Present full ROM, pulses intact and normal capillary refill; Absent cyanosis, clubbing or edema *Routine Skin Exam Skin: Present intact and warm; Absent erythema *Routine Neurological Exam Neurological: Present alert, oriented X3 and CN II-XII intact; Absent sensory deficit or motor deficit Routine Psychiatric Exam Psychiatric: Present normal affect Progress Note: A&P Assessment and plan (1) Non-STEMI (non-ST elevated myocardial infarction): Status: Acute (2) HFrEF (heart failure with reduced ejection fraction): Status: Acute (3) CAD in [place] artery: Status: Acute (4) Presence of biventricular AICD: Status: Acute (5) Hypertension: Status: Acute (6) Hyperlipidemia: Status: Acute (7) Atrial fibrillation with RVR: Status: Acute (8) Severe mitral regurgitation: Status: Acute (9) S/P coronary artery stent placement: Status: Acute Assessment and Plan Assessment and Plan for All Diagnoses:: Plan: 1. This is an 82-year-old gentleman who presented to the emergency department complaints of chest pain and shortness of breath. The patient was found to be in atrial fibrillation with RVR and diffuse EKG changes. The patient was treated with IV metoprolol and his rate did slow down. He has been restarted on his amiodarone for control of his atrial fibrillation. 2. The patient did have an elevated troponin consistent with a non-STEMI. He underwent left cardiac catheterization yesterday and had lithotripsy and 4 stents placed to his right coronary artery. He tolerated the procedure well and will be on Plavix and aspirin for dual antiplatelet therapy. 3. The patient will be on triple therapy with Eliquis, aspirin and Plavix for 30 days. After 30 days the patient can stop aspirin and remain on Eliquis and Plavix. The patient and his both verbalized understanding. 4. The patient has a known history of dilated cardiomyopathy and is status post BiV AICD placement. This is currently managed by his current base engineer, Dr. Renteria. 5. The patient does have atrial fibrillation. He is now rate controlled. He is on carvedilol, amiodarone and long-term anticoagulation with Eliquis. 6. Continue carvedilol, Jardiance, Aldactone and Entresto for HFrEF. 7. The patient is slightly hypotensive this morning. He states that his blood pressure tends to run on the low side. We likely over diuresed the patient and he has a little bit of dehydration from that. Will hold his Lasix today which will likely improve his blood pressure. He can resume Lasix 20 mg p.o. daily tomorrow at home. 8. His LDL goal is less than 55. His LDL is 90. Will stop his pravastatin and put him on Lipitor 40 mg p.o. nightly. 9. No further recommendations at this time from a cardiac standpoint. The patient can be discharged home today from a cardiac standpoint. He will need to be discharged on the following cardiac medications: Amiodarone 200 mg daily, Eliquis 5 mg p.o. twice daily, aspirin 81 mg daily, Lipitor 40 mg nightly, Coreg 6.25 mg p.o. twice daily, Plavix 75 mg daily, Jardiance 10 mg daily, Entresto 24/26 mg p.o. twice daily, spironolactone 25 mg daily. The patient will need to follow-up in cardiology clinic on Thursday or Thursday next week with a BMP prior to his appointment. Thank you for the opportunity to help participate in the care of this patient. All recommendations and orders are per Dr. Hubbard.
[2023-08-28] MEDS: CARVEDILOL 6.25MG TABLET 6.25 MG PO (11:58)
[2023-08-28] MEDS: EMPAGLIFLOZIN 10MG TABLET 10 MG PO (11:59)
[2023-08-28] MEDS: SPIRONOLACTONE 25MG TABLET 25 MG PO (11:59)
[2023-08-28] MEDS: SACUBITRIL/VALSARTAN 24-26MG TABLET 1 EACH PO (11:59)
--- NOTE | 2023-09-02 12:06 | CARE MANAGER ---
Contacted patient related to hospital discharge. He states he feels about the same. He did follow up with PCP yesterday and they are holding new medications as his blood pressure was going to low. 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 Peter. He cancelled appointment with Dr. Colmenares and denies further questions or concerns. BAIRON Andrews
== END 2023-08-28 12:45 | disposition home or self-care (01) ==
LOC: ER 14:19 → 2ND 16:31
PROVIDERS: Internal Medicine; Nurse Practitioner Acute Care; Nurse Practitioner Family; Admitting Provider Internal Medicine Adolescent Medicine; Emergency Provider Emergency Medicine; PCP Family Medicine; Visit Provider Internal Medicine Adolescent Medicine
DX: I11.0 Hypertensive heart disease with heart failure; I50.23 Acute on chronic systolic (congestive) heart failure; R07.9 Chest pain, unspecified; Z95.810 Presence of automatic (implantable) cardiac defibrillator; E78.2 Mixed hyperlipidemia; I48.91 Unspecified atrial fibrillation; I25.10 Atherosclerotic heart disease of native coronary artery without angina pectoris; I34.0 Nonrheumatic mitral (valve) insufficiency; Z95.5 Presence of coronary angioplasty implant and graft; J81.0 Acute pulmonary edema; I42.0 Dilated cardiomyopathy; R06.02 Shortness of breath; Z79.01 Long term (current) use of anticoagulants; N40.0 Benign prostatic hyperplasia without lower urinary tract symptoms; Z79.899 Other long term (current) drug therapy; Z87.891 Personal history of nicotine dependence
CPT/HCPCS: 36415; 71045; 80048; 80053; 80061; 80076; 82803; 83605; 83880; 84439; 84443; 84484; 85007; 85025; 85347; 92928; 92972; 93005; 93306; 93458; 99152; 99153; 99291; C1725; C1761; C1769; C1874; C1876; C9600; G0378; J1644; Q9967